=== PATIENT | female | born 1940 | race Caucasian/White ===

== ENCOUNTER → 2018-01-24 09:10 | Outpatient (CLI) | payer MEDICARE, OTHER, SELFPAY ==
[2018-01-24 11:45] LABS: Free T3, Triiodothyronine Free 2.39 pg/mL (2.77-5.27); Free T4, Direct Thyroxine 1.51 ng/dL (0.78-2.19)
[2018-01-24 11:58] LABS: Thyroid Stimulating Hormone 3.79 uIU/mL (0.47-4.68)
[2018-01-24 16:02] LABS: TSH w/ Reflex to FT4 3.86 uIU/mL (0.47-4.68)
== END ==
PROVIDERS: PCP Family Medicine; Visit Provider Family Medicine
DX: E03.9 Hypothyroidism, unspecified (principal)
CPT/HCPCS: 36415; 84439; 84443; 84481

== ENCOUNTER 2018-03-07 07:34 | Emergency (ER) | payer MEDICARE, OTHER, SELFPAY ==
--- NOTE | 2018-03-07 07:48 | DI.RAD.S_ITS ---
PROCEDURE: XR KNEE LT 3V INDICATIONS: knee pain, injury yesterday TECHNIQUE: 3 views of the knee were acquired. COMPARISON: None. FINDINGS: Bones: No fractures or dislocations. No suspicious bony lesions. Scattered degenerative spurring mild narrowing of the medial joint space. Spurring of the superior pole of the patella Soft tissues: No joint effusion. Chondrocalcinosis is seen. There are numerous surgical clips and soft tissue dystrophic calcifications. IMPRESSION: Mild left knee joint degeneration. No fracture identified. Chondrocalcinosis. Dictated by: Paresh Lynn M.D. on 03/07/2018 at 8:27 Approved by: Paresh Lynn M.D. on 03/07/2018 at 8:30
[2018-03-07 07:50] VITALS: BP 171/78; PULSE 70; RESP 18; TEMP 36; O2SAT 95; BMI 40.3
--- NOTE | 2018-03-07 07:51 | ED_ITS ---
HPI - Extremity Injury (Lower) General Chief Complaint: Extremity Problem,Nontraumatic Stated Complaint: Left Knee went out Time Seen by Provider: 03/07/18 07:39 Source: patient Mode of arrival: ambulatory Limitations: no limitations History of Present Illness HPI Narrative: 77-year-old female with history of hypertension, a nonsmoker presents alone with a chief complaint of left knee pain since an injury yesterday. She was merely walking with a shopping cart and felt a pop in her left, already arthritic knee. She has increasing pain with ambulation and improvement with rest. She felt a pop. She denies any obvious swelling. She denies other injury or specific, direct trauma MD complaint: knee injury Onset (ago): day(s) Type of Injury: unknown Place: street/outdoors Severity: moderate Relieving factors: rest Exacerbating factors: weight bearing and movement Context: walking Associated symptoms: snap/pop sensation Other symptoms: none Related Data Home Medications Medication Instructions Recorded Confirmed aspirin 81 mg PO QDAY #0 07/25/16 02/11/18 atorvastatin 40 mg PO HS #0 07/25/16 02/11/18 calcium carbonate-vitamin D3 1 sgl PO #0 07/25/16 02/11/18 [Calcium 600 with Vitamin D3] metoprolol succinate [Toprol XL] 50 mg PO QDAY #0 09/26/17 02/11/18 Previous Rx's Medication Instructions Recorded alendronate [Fosamax] 70 mg PO QWEEK #52 tab 09/04/17 cyclobenzaprine 10 mg tablet 10 mg PO ONCE PRN #90 tab 02/21/18 irbesartan 300 mg tablet 300 mg PO QDAY #90 tab 02/25/18 levothyroxine 125 mcg tablet 125 mcg PO QDAY #90 tab 02/25/18 Allergies Allergy/AdvReac Type Severity Reaction Status Date / Time codeine [CODEINE] Allergy Unknown Verified 03/07/18 08:13 peanut [PEANUT] Allergy Unknown Verified 03/07/18 08:13 Penicillins [PENICILLINS] Allergy Unknown Verified 03/07/18 08:13 Review of Systems Review of Systems All systems reviewed & are unremarkable except as noted in HPI and below Constitutional Denies chills, Denies fever(s), Denies lethargy and Denies weakness Eyes Denies change in vision, Denies eye discharge, Denies irritation and Denies loss of vision ENT Ears, Nose, Mouth, and Throat: Denies change in voice, Denies neck pain and Denies sore throat Cardiovascular Denies chest pain, Denies irregular heart rhythm, Denies lightheadedness, Denies palpitations, Denies dyspnea, Denies dyspnea on exertion and Denies orthopnea Respiratory Denies cough, Denies dyspnea, Denies dyspnea on exertion and Denies wheezing Gastrointestinal Gastrointestinal: Denies abdominal pain, Denies change in bowel habits, Denies diarrhea, Denies nausea and Denies vomiting Genitourinary Denies hematuria, Denies flank pain, Denies urinary incontinence and Denies urinary urgency Musculoskeletal Reports abnormal gait, Reports limited range of motion and Denies neck pain Integumentary/Breasts Denies pruritus, Denies erythema, Denies rash and Denies wounds Neurologic Reports abnormal gait, Denies confusion, Denies loss of vision and Denies weakness Psychiatric Denies anxiety, Denies confusion, Denies depression, Denies homicidal ideation and Denies suicidal ideation Endocrine Denies palpitations Hematologic/Lymphatic Denies easy bruising Allergic/Immunologic Denies wheezing [facility] Medical History Chronic back pain (Chronic) Coronary artery disease (Chronic 1998) Hypertension (Chronic) Hypothyroidism (Chronic Unknown) Irritable bowel disease (Chronic) Osteoporosis (Chronic) History of arm fracture (Resolved) Hx of hysterectomy (Resolved 1996) Mumps (Resolved) Surgical History History of knee replacement (Resolved 2013) Hx of breast biopsy (Resolved 2006) Hx of cataract surgery (Resolved 2013) Hx of cholecystectomy (Resolved 11/2016) Hx of coronary artery bypass graft (Resolved 1998) Hx of rotator cuff surgery (Resolved) Family History Child Heart disease Mother Diabetes mellitus Father Heart disease Social History Smoking Status: Never smoker alcohol intake: never Exam Narrative Exam Narrative: GEN: AOx3 and in mild distress EYES: Pupils are equal, round, and reactive to light and accommodation. Extraoccular muscles are intact bilaterally. There is no subconjunctival hemorrhage or exudate. CHEST: Lungs are clear to auscultation bilaterally and free of wheezes, rales, or rhonchi. Heart rate is regular rhythm, there are no murmurs, clicks, rubs, or gallops. There is no chest wall tenderness. ABD: Abdomen is soft and nontender. There is no guarding or rebound. Bowel sounds are normal in all 4 quadrants. There is no mass or organomegaly. EXT: Full but painful range of motion of left knee with tenderness along the medial aspect of the patella. No effusion, warmth or redness. No ligamentous instability SKIN: Warm, pink, and dry. No erythema or rash Initial Vital Signs Initial Vital Signs: Vital Signs Temperature 96.8 F L 03/07/18 07:50 Pulse Rate 70 03/07/18 07:50 Respiratory Rate 18 03/07/18 07:50 Blood Pressure 171/78 H 03/07/18 07:50 Pulse Oximetry 95 03/07/18 07:50 Course Orders Ordered: ED Orders 03/07/18 07:48 XR knee LT 3V Stat Discharge Plan Departure Patient Disposition: Home Clinical Impression: Left knee sprain Discharge Date/Time: 03/07/18 08:30 Interventions: ED Discharge Assessment Last Done: 03/07/18 08:30 Instructions: DI for Knee Sprain Activity Restrictions/Additional Instructions: *You have been diagnosed with [ acute left knee sprain ] *What to do: * please continue to take medications as directed and add Tylenol and/or Motrin for aches and pains *Follow up with your primary care provider in 2-3 days, call for an appointment. Let them know you were seen in the Emergency Department and that we ask that you be seen in follow up *Return to ER if you should have any new, worsening or concerning symptoms Prescriptions: No Action atorvastatin 40 MG tablet 40 mg PO HS Qty: 0 RF: 0 aspirin 81 MG tablet,delayed release (DR/EC) 81 mg PO QDAY Qty: 0 RF: 0 calcium carbonate-vitamin D3 [Calcium 600 with Vitamin D3] 600 MG/200 IU capsule 1 sgl PO Qty: 0 RF: 0 alendronate [Fosamax] 70 MG tablet 70 mg PO QWEEK Qty: 52 RF: 0 metoprolol succinate [Toprol XL] 50 MG tablet extended release 24 hr 50 mg PO QDAY Qty: 0 RF: 0 cyclobenzaprine 10 mg tablet 10 mg PO ONCE PRN (Reason: muscle spasm) Qty: 90 RF: 0 irbesartan 300 mg tablet 300 mg PO QDAY Qty: 90 RF: 1 levothyroxine [Synthroid] 125 mcg tablet 125 mcg PO QDAY Qty: 90 RF: 3 Referrals: Deyainra Soto DO [Primary Care Provider] -
== END 2018-03-07 08:30 | disposition home or self-care (01) ==
PROVIDERS: Emergency Provider Emergency Medicine; PCP Family Medicine
DX: S83.92XA Sprain of unspecified site of left knee, initial encounter (principal); Y93.01 Activity, walking, marching and hiking
CPT/HCPCS: 73562; 99282; 99283

== ENCOUNTER → 2018-04-03 08:19 | Outpatient (CLI) | payer MEDICARE, OTHER, SELFPAY ==
[2018-04-03 09:42] LABS: Add Manual Diff / Slide Review NO; Basophils Percent Auto 0.7 % (0-2); Eosinophils Percent Auto 6.3 % (2-4); Hemoglobin 14.3 g/dL (12.0-16.0); Lymphocytes Percent Auto 19.7 % (25-40); Mean Corpuscular HGB Conc 33.9 % (30-36); Mean Corpuscular Hemoglobin 28.9 PG (26-34); Mean Corpuscular Volume 85.1 fL (80-100); Monocytes Percent Auto 7.2 % (3-14); Neutrophils Absolute Auto 3300 /uL (3000-5900); Neutrophils Percent Auto 66.1 % (50-75); Platelet Count 176 X10^3/uL (150-400); Red Blood Cell Count 4.94 X10^6/uL (4.0-5.2); Red Cell Distribution Width 14.7 % (11.6-14.8)
[2018-04-03 09:59] LABS: Alanine Aminotransferase 27 IU/L (9-52); Albumin 4.3 g/dL (3.5-5.0); Albumin Globulin Ratio 1.3 (1.0-2.8); Alkaline Phosphatase 78 U/L (38-126); Aspartate Aminotransferase 26 IU/L (14-36); BUN Creatinine Ratio 17.8 (6-22); Bilirubin Total 0.9 mg/dL (0.2-1.3); Blood Urea Nitrogen 16 mg/dL (7-17); Calcium 9.5 mg/dL (8.4-10.2); Carbon Dioxide 29 mmol/L (22-32); Chloride 103 mmol/L (98-107); Cholesterol 157 mg/dL (140-199); Estimated Glomerular Filt Rate > 60.0 mL/min (>60); Globulin 3.2 g/dL (1.7-4.1); Glucose 106 mg/dL (80-110); HDL Cholesterol 70 mg/dL (40-60); HEMOLYSIS < 15 (0-50); LDL Cholesterol Calculated 65 mg/dL (<100); Potassium 4.6 mmol/L (3.4-5.1); Sodium 144 mmol/L (137-145); Total Protein 7.5 g/dL (6.3-8.2); Triglycerides 110 mg/dL (35-150)
[2018-04-03 10:16] LABS: Free T3, Triiodothyronine Free 2.75 pg/mL (2.77-5.27); Free T4, Direct Thyroxine 1.22 ng/dL (0.78-2.19)
[2018-04-03 10:30] LABS: Thyroid Stimulating Hormone 5.14 uIU/mL (0.47-4.68)
== END ==
PROVIDERS: PCP Family Medicine; Visit Provider Family Medicine
DX: E03.9 Hypothyroidism, unspecified (principal); E78.2 Mixed hyperlipidemia; I10 Essential (primary) hypertension
CPT/HCPCS: 36415; 80053; 80061; 84439; 84443; 84481; 85025

== ENCOUNTER 2018-06-10 12:33 | Emergency (ER) | payer MEDICARE, OTHER, SELFPAY ==
[2018-06-10 12:36] VITALS: BP 169/71; PULSE 65; RESP 15; TEMP 36.6; O2SAT 100; BMI 42.1
--- NOTE | 2018-06-10 14:14 | DI.RAD.S_ITS ---
PROCEDURE: XR RIBS RT MIN 3V W CXR 1V INDICATIONS: R. 12th rib pain, fall TECHNIQUE: 2 views of the right ribs were acquired, along with a single view chest. COMPARISON: [facility], , CHEST 2 VIEW, 12/31/2016, 12:42. FINDINGS: Surgical changes and devices: Postoperative changes related to prior mediastinal surgery appears to be present. Clips within the right upper quadrant are suggestive of a previous cholecystectomy. Bones and chest wall: No displaced right-sided rib fractures are evident. No suspicious osseous lesions are evident. There are age-appropriate degenerative changes of the spine and shoulders. No suspicious bony lesions. Overlying soft tissues appear unremarkable. Lungs and pleura: No pleural effusions or pneumothorax. Lungs appear clear. Mediastinum: Mediastinal contours appear normal. Heart size is borderline enlarged. There may be aortic atherosclerosis. IMPRESSION: No displaced right-sided rib fractures. Dictated by: Flaco Monsivais M.D. on 06/10/2018 at 14:09 Approved by: Flaco Monsivais M.D. on 06/10/2018 at 14:10
--- NOTE | 2018-06-10 14:19 | ED_ITS ---
HPI - Abdominal Pain <Carissa Hernandez PA-C - Last Filed: 06/10/18 22:02> General Chief Complaint: Abdominal Pain Stated Complaint: rt sided abd pain Time Seen by Provider: 06/10/18 14:04 Source: patient Mode of arrival: ambulatory Limitations: no limitations History of Present Illness HPI narrative: This 78-year-old female was sent from walk-in clinic to ED due to right upper quadrant/rib area and flank pain. She states that this has been going on for about a week, but seems somewhat worse today. She denies any new trauma, but states that she fell at home couple of weeks ago. She does not remember any specific injury at the time. She states that pain seems worse with certain movements, and she has noticed that she has a hard time getting comfortable in bed at night. 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 She denies any fever, chills, sweats. She denies any nausea or vomiting. She denies any dysuria, new frequency, urgency, or hematuria. She denies any bowel habit changes (has fecal urgency since her cholecystectomy last year). She has not had any rash. She states that the only exacerbating or alleviating features to the pain seems to be positional, i.e. certain movements and sometimes deep breath exacerbate pain. She has been taking meloxicam prescribed by her PCP daily for knee problems, notes that she did not take that today Related Data Home Medications Medication Instructions Recorded Confirmed aspirin 81 mg PO QDAY #0 07/25/16 04/30/18 atorvastatin 40 mg PO HS #0 07/25/16 04/30/18 metoprolol succinate [Toprol XL] 50 mg PO QDAY #0 09/26/17 06/10/18 irbesartan 300 mg PO DAILY 06/10/18 06/10/18 levothyroxine 06/10/18 Previous Rx's Medication Instructions Recorded alendronate [Fosamax] 70 mg PO QWEEK #52 tab 09/04/17 meloxicam 15 mg tablet 15 mg PO DAILY PRN #30 tab 03/11/18 adjuvant AS01B (PF), component 0.5 ml IM ONCE #0.5 ml 04/30/18 vial 1 of 2 intramuscular suspension levothyroxine 137 mcg tablet 137 mcg PO DAILY #90 tab 04/30/18 pneumococcal 23 polyvalent vaccine 0.5 ml IM ONCE #0.5 ml 04/30/18 25 mcg/0.5 mL injection solution lidocaine [Lidoderm] 3 patch TOP DAILY #30 each 06/10/18 meloxicam [Mobic] 15 mg PO DAILY #30 tab 06/10/18 Allergies Allergy/AdvReac Type Severity Reaction Status Date / Time codeine [CODEINE] Allergy Severe High fever Verified 06/10/18 12:36 Influenza Virus Vaccines Allergy Severe High Verified 06/10/18 12:36 fevers - patient can't remember the rest peanut [PEANUT] Allergy Severe Rash, Verified 06/10/18 12:36 difficulty breathing Penicillins [PENICILLINS] Allergy Intermediate Rash Verified 06/10/18 12:36 Exam <Carissa Hernandez PA-C - Last Filed: 06/10/18 22:02> Narrative Exam Narrative: GENERAL APPEARANCE: Patient sitting comfortably, in no distress. HEENT: PERRL, EOMI, no scleral icterus NECK: Supple LUNGS: Clear to auscultation bilaterally. HEART: Rate and rhythm regular, normal S1 and S2, no S3 or S4. ABDOMEN: Soft, nontender, nondistended, bowel sounds present x 4 quadrants, no masses palpable, no hepatosplenomegaly. MUSCULOSKELETAL: Point tender along the right 12th rib from the midclavicular line to the posterior lateral scapular line, most anterior laterally where there is a trigger point EXTREMITIES: No edema, no calf tenderness DERMATOLOGIC: No jaundice or exanthem NEUROLOGIC: Alert and oriented with normal speech and coordination Initial Vital Signs Initial Vital Signs: Vital Signs Temperature 97.9 F 06/10/18 12:36 Pulse Rate 65 06/10/18 12:36 Respiratory Rate 15 06/10/18 12:36 Blood Pressure 169/71 H 06/10/18 12:36 Pulse Oximetry 100 06/10/18 12:36 <Estella Millan DO - Last Filed: 06/14/18 08:07> Initial Vital Signs Initial Vital Signs: Vital Signs Temperature 97.9 F 06/10/18 12:36 Pulse Rate 65 06/10/18 12:36 Respiratory Rate 15 06/10/18 12:36 Blood Pressure 169/71 H 06/10/18 12:36 Pulse Oximetry 100 06/10/18 12:36 Course <Carissa Hernandez PA-C - Last Filed: 06/10/18 22:02> Additional Information: Patient has clearly reproducible rib pain that has worsened today when she did not take her usual NSAID. She does not have any reproducible lower quadrant or abdominal pain, and has not developed any other new symptoms such as fever or vomiting since onset. Advised to monitor for these and she is agreeable. She is feeling better after ibuprofen, and will return if any acutely worsening or new symptoms, otherwise will follow up with PCP Orders Ordered: Discontinued Medications Ibuprofen (Advil) 400 mg PO NOW ONE Stop: 06/10/18 14:51 Last Admin: 06/10/18 14:53 Dose: 400 mg Vital Signs - 8 hr 06/10/18 15:34 Pulse Rate 61 Respiratory Rate 14 Blood Pressure [Left Wrist] 154/80 H Pulse Oximetry 100 <Estella Millan DO - Last Filed: 06/14/18 08:07> Orders Ordered: Discontinued Medications Ibuprofen (Advil) 400 mg PO NOW ONE Stop: 06/10/18 14:51 Last Admin: 06/10/18 14:53 Dose: 400 mg Vital Signs - 8 hr 06/10/18 15:34 Pulse Rate 61 Respiratory Rate 14 Blood Pressure [Left Wrist] 154/80 H Pulse Oximetry 100 MDM - Abdominal Pain <Carissa Hernandez PA-C - Last Filed: 06/10/18 22:02> Lab Data Attestation: I reviewed the patient's lab results. Result diagrams: 06/10/18 14:32 06/10/18 14:32 Lab Results 06/10/18 06/10/18 Range/Units 14:32 14:32 WBC 6.5 (4.5-11.0) X10^3/uL RBC 5.02 (4.0-5.2) X10^6/uL Hgb 14.4 (12.0-16.0) g/dL Hct 43.1 (36-46) % MCV 85.8 (80-100) fL MCH 28.6 (26-34) PG MCHC 33.3 (30-36) % RDW 14.1 (11.6-14.8) % Plt Count 176 (150-400) X10^3/uL Neut % (Auto) 70.2 (50-75) % Lymph % (Auto) 18.0 L (25-40) % Casey % (Auto) 7.2 (3-14) % Eos % (Auto) 3.3 (2-4) % Baso % (Auto) 1.3 (0-2) % Neut # (Auto) 4500 (5627-0665) /uL Sodium 144 (137-145) mmol/L Potassium 4.5 (3.4-5.1) mmol/L Chloride 106 (98-107) mmol/L Carbon Dioxide 29 (22-32) mmol/L BUN 14 (7-17) mg/dL Creatinine 0.80 (0.52-1.04) mg/dL Estimated GFR > 60.0 (>60) mL/min BUN/Creatinine Ratio 17.5 (6-22) Glucose 100 (80-110) mg/dL Calcium 9.4 (8.4-10.2) mg/dL Total Bilirubin 0.9 (0.2-1.3) mg/dL AST 30 (14-36) IU/L ALT 29 (9-52) IU/L Alkaline Phosphatase 87 (38-126) U/L Total Protein 7.8 (6.3-8.2) g/dL Albumin 4.4 (3.5-5.0) g/dL Globulin 3.4 (1.7-4.1) g/dL Albumin/Globulin Ratio 1.3 (1.0-2.8) Lipase 37 (23-300) U/L Imaging Data Chest x-ray: Radiologist's impression: [place] [address] XRay Report Signed Patient: Ursula Rodarte MR#: [id number] : 1940 Acct:[id number] Age/Sex: 78 / F Date of Service: 06/10/18 Loc: ED Accession Number: [id number] Procedure: XR ribs RT min 3V w CXR1V Ordering Provider: Carissa Hernandez P.A-C PROCEDURE: XR RIBS RT MIN 3V W CXR 1V INDICATIONS: R. 12th rib pain, fall TECHNIQUE: 2 views of the right ribs were acquired, along with a single view chest. [facility] 12[facility]. FINDINGS: Surgical changes and devices: Postoperative changes related to prior mediastinal surgery appears to be present. Clips within the right upper quadrant are suggestive of a previous cholecystectomy. Bones and chest wall: No displaced right-sided rib fractures are evident. No suspicious osseous lesions are evident. There are age-appropriate degenerative changes of the spine and shoulders. No suspicious bony lesions. Overlying soft tissues appear unremarkable. Lungs and pleura: No pleural effusions or pneumothorax. Lungs appear clear. Mediastinum: Mediastinal contours appear normal. Heart size is borderline enlarged. There may be aortic atherosclerosis. IMPRESSION: No displaced right-sided rib fractures. Dictated by: Flaco Monsivais M.D. on 06/10/2018 at 14:09 Approved by: Flaco Monsivais M.D. on 06/10/2018 at 14:10 <Estella Millan DO - Last Filed: 06/14/18 08:07> Lab Data Lab Results 06/10/18 06/10/18 Range/Units 14:32 14:32 WBC 6.5 (4.5-11.0) X10^3/uL RBC 5.02 (4.0-5.2) X10^6/uL Hgb 14.4 (12.0-16.0) g/dL Hct 43.1 (36-46) % MCV 85.8 (80-100) fL MCH 28.6 (26-34) PG MCHC 33.3 (30-36) % RDW 14.1 (11.6-14.8) % Plt Count 176 (150-400) X10^3/uL Neut % (Auto) 70.2 (50-75) % Lymph % (Auto) 18.0 L (25-40) % Casey % (Auto) 7.2 (3-14) % Eos % (Auto) 3.3 (2-4) % Baso % (Auto) 1.3 (0-2) % Neut # (Auto) 4500 (1303-5616) /uL Sodium 144 (137-145) mmol/L Potassium 4.5 (3.4-5.1) mmol/L Chloride 106 (98-107) mmol/L Carbon Dioxide 29 (22-32) mmol/L BUN 14 (7-17) mg/dL Creatinine 0.80 (0.52-1.04) mg/dL Estimated GFR > 60.0 (>60) mL/min BUN/Creatinine Ratio 17.5 (6-22) Glucose 100 (80-110) mg/dL Calcium 9.4 (8.4-10.2) mg/dL Total Bilirubin 0.9 (0.2-1.3) mg/dL AST 30 (14-36) IU/L ALT 29 (9-52) IU/L Alkaline Phosphatase 87 (38-126) U/L Total Protein 7.8 (6.3-8.2) g/dL Albumin 4.4 (3.5-5.0) g/dL Globulin 3.4 (1.7-4.1) g/dL Albumin/Globulin Ratio 1.3 (1.0-2.8) Lipase 37 (23-300) U/L Discharge Plan Departure Patient Disposition: Home Clinical Impression: Contusion of rib on right side Discharge Date/Time: 06/10/18 15:46 Interventions: ED Discharge Assessment Last Done: 06/10/18 15:45 Instructions: DI for Rib Contusion Activity Restrictions/Additional Instructions: I think your flank and right side area pain is related to your rib. When I push on that area or you move certain directions, we are able to make the pain happen. There is also correlation with it getting worse and you not having taken your meloxicam today. 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 Please continue your meloxicam. You can also add Tylenol if needed. I have also prescribed a lidocaine patch that you can put around the rib area for up to 12 hr daily to help with pain. If your insurance does not cover this, you can get a similar, 4% lidocaine patch over-the- counter. Please follow-up with your PCP in the next week to determine whether further treatment, such as physical therapy, may be needed. You should return here as we talked about if you have any acutely worsening pain, or new symptoms such as vomiting or fever. Prescriptions: New meloxicam [Mobic] 15 mg tablet 15 mg PO DAILY Qty: 30 RF: 0 lidocaine [Lidoderm] 5 % adhesive patch,medicated 3 patch TOP DAILY Qty: 30 RF: 0 No Action levothyroxine [Synthroid] 137 mcg tablet 137 mcg PO DAILY Qty: 90 RF: 1 pneumococcal 23-dennis ps vaccine 25 mcg/0.5 mL solution 0.5 ml IM ONCE Qty: 0.5 RF: 0 adjuvant AS01B (PF)vial 1 of 2 [Shingrix Adjuvant Component-PF] suspension 0.5 ml IM ONCE Qty: 0.5 RF: 0 meloxicam [Mobic] 15 mg tablet 15 mg PO DAILY PRN (Reason: knee pain) Qty: 30 RF: 1 atorvastatin 40 MG tablet 40 mg PO HS Qty: 0 RF: 0 aspirin 81 MG tablet,delayed release (DR/EC) 81 mg PO QDAY Qty: 0 RF: 0 alendronate [Fosamax] 70 MG tablet 70 mg PO QWEEK Qty: 52 RF: 0 metoprolol succinate [Toprol XL] 50 MG tablet extended release 24 hr 50 mg PO QDAY Qty: 0 RF: 0 levothyroxine 137 mcg tablet RF: 0 irbesartan 300 mg tablet 300 mg PO DAILY RF: 0 Referrals: Deyanira Soto DO [Primary Care Provider] - <Estella Milaln DO - Last Filed: 06/14/18 08:07> Cosign ED Attending Cosmoeature Attestation: I was immediately available in the department for consultation. Documentation has been reviewed. I agree with assessment and plan.
[2018-06-10 14:40] LABS: Add Manual Diff / Slide Review NO; Basophils Percent Auto 1.3 % (0-2); Eosinophils Percent Auto 3.3 % (2-4); Hematocrit 43.1 % (36-46); Hemoglobin 14.4 g/dL (12.0-16.0); Mean Corpuscular HGB Conc 33.3 % (30-36); Mean Corpuscular Hemoglobin 28.6 PG (26-34); Mean Corpuscular Volume 85.8 fL (80-100); Monocytes Percent Auto 7.2 % (3-14); Neutrophils Absolute Auto 4500 /uL (1500-7000); Neutrophils Percent Auto 70.2 % (50-75); Platelet Count 176 X10^3/uL (150-400); Red Blood Cell Count 5.02 X10^6/uL (4.0-5.2); Red Cell Distribution Width 14.1 % (11.6-14.8); White Blood Cell Count 6.5 X10^3/uL (4.5-11.0)
[2018-06-10 14:52] LABS: Alanine Aminotransferase 29 IU/L (9-52); Albumin 4.4 g/dL (3.5-5.0); Albumin Globulin Ratio 1.3 (1.0-2.8); Alkaline Phosphatase 87 U/L (38-126); Aspartate Aminotransferase 30 IU/L (14-36); BUN Creatinine Ratio 17.5 (6-22); Bilirubin Total 0.9 mg/dL (0.2-1.3); Blood Urea Nitrogen 14 mg/dL (7-17); Calcium 9.4 mg/dL (8.4-10.2); Carbon Dioxide 29 mmol/L (22-32); Chloride 106 mmol/L (98-107); Estimated Glomerular Filt Rate > 60.0 mL/min (>60); Globulin 3.4 g/dL (1.7-4.1); Glucose 100 mg/dL (80-110); HEMOLYSIS < 15 (0-50); Lipase 37 U/L (23-300); Potassium 4.5 mmol/L (3.4-5.1); Sodium 144 mmol/L (137-145); Total Protein 7.8 g/dL (6.3-8.2)
[2018-06-10] MEDS: IBUPROFEN 400 MG TABLET PO (14:53)
[2018-06-10 15:34] VITALS: BP 154/80; PULSE 61; RESP 14; O2SAT 100
== END 2018-06-10 15:46 | disposition home or self-care (01) ==
PROVIDERS: Emergency Provider Internal Medicine; PCP Family Medicine
DX: S20.211A Contusion of right front wall of thorax, initial encounter (principal)
CPT/HCPCS: 36415; 71101; 80053; 83690; 85025; 99282; 99284

== ENCOUNTER → 2018-07-20 10:18 | Outpatient (CLI) | payer MEDICARE, OTHER, SELFPAY ==
[2018-07-20 11:27] LABS: BUN Creatinine Ratio 15.6 (6-22); Blood Urea Nitrogen 14 mg/dL (7-17); Calcium 9.4 mg/dL (8.4-10.2); Carbon Dioxide 29 mmol/L (22-32); Chloride 102 mmol/L (98-107); Estimated Glomerular Filt Rate > 60.0 mL/min (>60); Glucose 110 mg/dL (80-110); HEMOLYSIS < 15 (0-50); Potassium 4.3 mmol/L (3.4-5.1); Sodium 141 mmol/L (137-145)
[2018-07-20 11:45] LABS: Free T3, Triiodothyronine Free 3.69 pg/mL (2.77-5.27); Free T4, Direct Thyroxine 2.67 ng/dL (0.78-2.19)
[2018-07-20 11:58] LABS: Thyroid Stimulating Hormone 0.19 uIU/mL (0.47-4.68)
== END ==
PROVIDERS: PCP Family Medicine; Visit Provider Hospitalist
DX: I10 Essential (primary) hypertension (principal); E03.9 Hypothyroidism, unspecified
CPT/HCPCS: 36415; 80048; 84439; 84443; 84481

== ENCOUNTER → 2018-10-03 08:13 | Outpatient (CLI) | payer MEDICARE, OTHER, SELFPAY ==
--- NOTE | 2018-10-03 08:15 | DI.US.S_ITS ---
PROCEDURE: US THYROID INDICATIONS: ENLARGED THYROID TECHNIQUE: Real-time scanning was performed of the thyroid gland, with image documentation. COMPARISON: None. FINDINGS: Right: Thyroid lobe measures 2.2 x 1 x 0.8 cm, and is homogeneous in echotexture. Left: Not seen. Isthmus: Not seen. IMPRESSION: Only the right lobe of the thyroid can be seen. The right lobe of the thyroid is not enlarged. The thyroid isthmus and the left thyroid are not seen. Please correlate with patient history. Dictated by: Julien Obregon M.D. on 10/03/2018 at 10:00 Approved by: Julien Obregon M.D. on 10/03/2018 at 10:01
[2018-10-06 22:05] LABS: Fecal Immunochemical Test NOT DETECTED (NOT DETECTED)
== END ==
PROVIDERS: PCP Family Medicine; Visit Provider Family Medicine
DX: E03.9 Hypothyroidism, unspecified (principal); E04.9 Nontoxic goiter, unspecified; K52.9 Noninfective gastroenteritis and colitis, unspecified
CPT/HCPCS: 76536; 82274

== ENCOUNTER → 2018-11-29 09:42 | Outpatient (CLI) | payer MEDICARE, OTHER, SELFPAY | PROVIDERS: PCP Family Medicine; Visit Provider Family Medicine | DX: M85.851 Other specified disorders of bone density and structure, right thigh (principal); Z78.0 Asymptomatic menopausal state; E07.9 Disorder of thyroid, unspecified | CPT/HCPCS: 77080 ==

== ENCOUNTER → 2018-12-19 07:22 | Outpatient (CLI) | payer MEDICARE, OTHER, SELFPAY ==
[2018-12-19 08:09] LABS: Hematocrit 41.7 % (36-46); Hemoglobin 14.1 g/dL (12.0-16.0); Mean Corpuscular HGB Conc 33.8 % (30-36); Mean Corpuscular Hemoglobin 28.9 PG (26-34); Mean Corpuscular Volume 85.3 fL (80-100); Platelet Count 209 X10^3/uL (150-400); Red Blood Cell Count 4.89 X10^6/uL (4.0-5.2); Red Cell Distribution Width 14.6 % (11.6-14.8); White Blood Cell Count 6.1 X10^3/uL (4.5-11.0)
[2018-12-19 08:12] LABS: Add Manual Diff / Slide Review YES
[2018-12-19 08:17] LABS: Alanine Aminotransferase 20 IU/L (9-52); Albumin 4.3 g/dL (3.5-5.0); Albumin Globulin Ratio 1.3 (1.0-2.8); Alkaline Phosphatase 76 U/L (38-126); Aspartate Aminotransferase 28 IU/L (14-36); BUN Creatinine Ratio 23.3 (6-22); Bilirubin Total 1.1 mg/dL (0.2-1.3); Blood Urea Nitrogen 21 mg/dL (7-17); Calcium 9.4 mg/dL (8.4-10.2); Carbon Dioxide 30 mmol/L (22-32); Chloride 104 mmol/L (98-107); Cholesterol 159 mg/dL (140-199); Estimated Glomerular Filt Rate > 60.0 mL/min (>60); Globulin 3.3 g/dL (1.7-4.1); Glucose 117 mg/dL (80-110); HDL Cholesterol 65 mg/dL (40-60); HEMOLYSIS < 15 (0-50); LDL Cholesterol Calculated 73 mg/dL (<100); Potassium 4.5 mmol/L (3.4-5.1); Sodium 140 mmol/L (137-145); Total Protein 7.6 g/dL (6.3-8.2); Triglycerides 106 mg/dL (35-150)
[2018-12-19 08:31] LABS: Free T3, Triiodothyronine Free 3.41 pg/mL (2.77-5.27); Free T4, Direct Thyroxine 1.81 ng/dL (0.78-2.19)
[2018-12-19 08:45] LABS: Thyroid Stimulating Hormone 1.17 uIU/mL (0.47-4.68)
[2018-12-19 09:07] LABS: Neutrophils Absolute Manual 3843 /uL (3000-5900); RBC Morphology Normal Morphology; Total Cells Counted 100
== END ==
PROVIDERS: PCP Family Medicine; Visit Provider Family Medicine
DX: K52.9 Noninfective gastroenteritis and colitis, unspecified (principal); K81.0 Acute cholecystitis; I10 Essential (primary) hypertension; E03.9 Hypothyroidism, unspecified; E04.9 Nontoxic goiter, unspecified; Z79.899 Other long term (current) drug therapy
CPT/HCPCS: 36415; 80053; 80061; 84439; 84443; 84481; 85025

== ENCOUNTER → 2019-04-14 07:51 | Outpatient (CLI) | payer MEDICARE, OTHER, SELFPAY ==
[2019-04-14 08:14] LABS: Add Manual Diff / Slide Review NO; Basophils Absolute Auto 0 /uL (0-100); Basophils Percent Auto 0.7 % (0-2); Eosinophils Absolute Auto 300 /uL (0-450); Eosinophils Percent Auto 5.3 % (2-4); Hematocrit 40.3 % (36-46); Hemoglobin 13.8 g/dL (12.0-16.0); Lymphocytes Absolute Auto 1000 /uL (1100-4500); Lymphocytes Percent Auto 18.5 % (25-40); Mean Corpuscular HGB Conc 34.3 % (30-36); Mean Corpuscular Hemoglobin 28.9 PG (26-34); Mean Corpuscular Volume 84.5 fL (80-100); Monocytes Absolute Auto 500 /uL (0-900); Monocytes Percent Auto 8.5 % (3-14); Neutrophils Absolute Auto 3600 /uL (1500-7000); Platelet Count 185 X10^3/uL (150-400); Red Blood Cell Count 4.77 X10^6/uL (4.0-5.2); Red Cell Distribution Width 14.6 % (11.6-14.8); White Blood Cell Count 5.3 X10^3/uL (4.5-11.0)
[2019-04-14 08:30] LABS: Alanine Aminotransferase 21 IU/L (<35); Albumin 4.3 g/dL (3.5-5.0); Albumin Globulin Ratio 1.3 (1.0-2.8); Alkaline Phosphatase 77 U/L (38-126); Aspartate Aminotransferase 32 IU/L (14-36); BUN Creatinine Ratio 22.2 (6-22); Blood Urea Nitrogen 20 mg/dL (7-17); Calcium 9.5 mg/dL (8.4-10.2); Carbon Dioxide 30 mmol/L (22-32); Chloride 103 mmol/L (98-107); Cholesterol 157 mg/dL (140-199); Estimated Glomerular Filt Rate > 60.0 mL/min (>60); Globulin 3.2 g/dL (1.7-4.1); Glucose 119 mg/dL (80-110); HDL Cholesterol 64 mg/dL (40-60); HEMOLYSIS < 15 (0-50); LDL Cholesterol Calculated 74 mg/dL (<100); Potassium 4.7 mmol/L (3.4-5.1); Sodium 139 mmol/L (137-145); Total Protein 7.5 g/dL (6.3-8.2); Triglycerides 93 mg/dL (35-150)
[2019-04-14 09:17] LABS: Free T3, Triiodothyronine Free 2.85 pg/mL (2.77-5.27); Free T4, Direct Thyroxine 1.43 ng/dL (0.78-2.19)
[2019-04-14 09:31] LABS: Thyroid Stimulating Hormone 2.57 uIU/mL (0.47-4.68)
== END ==
PROVIDERS: PCP Family Medicine; Visit Provider Family Medicine
DX: E03.9 Hypothyroidism, unspecified (principal); E78.2 Mixed hyperlipidemia; I10 Essential (primary) hypertension; I25.810 Atherosclerosis of coronary artery bypass graft(s) without angina pectoris; K80.20 Calculus of gallbladder without cholecystitis without obstruction; M15.0 Primary generalized (osteo)arthritis; M94.0 Chondrocostal junction syndrome [Tietze]
CPT/HCPCS: 36415; 80053; 80061; 84439; 84443; 84481; 85025

== ENCOUNTER → 2019-04-17 09:36 | Outpatient (CLI) | payer MEDICARE, OTHER, SELFPAY ==
[2019-04-17 11:29] LABS: Hemoglobin A1C% w Est Avg Glu 5.7 % (4.0-6.0)
[2019-04-17 12:08] LABS: Glucose 109 mg/dL (80-110)
== END ==
PROVIDERS: PCP Family Medicine; Visit Provider Nurse Practitioner
DX: R73.01 Impaired fasting glucose (principal)
CPT/HCPCS: 36415; 82947; 83036

== ENCOUNTER → 2019-10-20 06:57 | Outpatient (CLI) | payer MEDICARE, OTHER, SELFPAY ==
[2019-10-20 08:49] LABS: Alanine Aminotransferase 20 IU/L (<35); Aspartate Aminotransferase 30 IU/L (14-36); BUN Creatinine Ratio 23.1 (6-22); Blood Urea Nitrogen 21 mg/dL (7-17); Calcium 9.9 mg/dL (8.4-10.2); Carbon Dioxide 29 mmol/L (22-32); Chloride 104 mmol/L (98-107); Cholesterol 150 mg/dL (140-199); Estimated Glomerular Filt Rate 59.6 mL/min (>60); Glucose 117 mg/dL (80-110); HDL Cholesterol 67 mg/dL (40-60); HEMOLYSIS < 15 (0-50); LDL Cholesterol Calculated 62 mg/dL (<100); Potassium 4.5 mmol/L (3.4-5.1); Sodium 140 mmol/L (137-145); Triglycerides 104 mg/dL (35-150)
[2019-10-20 09:18] LABS: TSH w/ Reflex to FT4 3.67 uIU/mL (0.47-4.68)
== END ==
PROVIDERS: PCP Family Medicine; Referring Provider Internal Medicine; Visit Provider Internal Medicine
DX: E03.9 Hypothyroidism, unspecified (principal); I10 Essential (primary) hypertension; E78.5 Hyperlipidemia, unspecified
CPT/HCPCS: 36415; 80048; 80061; 84443; 84450; 84460

== ENCOUNTER → 2019-11-07 08:36 | Outpatient (CLI) | payer MEDICARE, OTHER, SELFPAY ==
[2019-11-07 09:55] LABS: Vitamin D 25 Hydroxy (D3) 43.5 ng/mL (30.0-100.0)
== END ==
PROVIDERS: PCP Internal Medicine; Referring Provider Internal Medicine; Visit Provider Internal Medicine
DX: M81.0 Age-related osteoporosis without current pathological fracture (principal)
CPT/HCPCS: 36415; 82306

== ENCOUNTER → 2020-03-07 09:44 | Outpatient (CLI) | payer MEDICARE, OTHER, SELFPAY ==
[2020-03-08 13:47] LABS: COVID19 Sendout Not Detected (Not Detect)
== END ==
PROVIDERS: PCP Internal Medicine; Visit Provider Family Medicine
DX: R06.02 Shortness of breath (principal); R11.0 Nausea; R51.9 Headache, unspecified; R53.83 Other fatigue
CPT/HCPCS: 87635

== ENCOUNTER → 2020-03-31 08:47 | Outpatient (CLI) | payer MEDICARE, OTHER, SELFPAY ==
[2020-03-31 09:19] LABS: Hemoglobin A1C% w Est Avg Glu 6.1 % (4.0-6.0)
[2020-03-31 09:31] LABS: Alanine Aminotransferase 18 IU/L (<35); Aspartate Aminotransferase 25 IU/L (14-36); BUN Creatinine Ratio 23.3 (6-22); Blood Urea Nitrogen 24 mg/dL (7-17); Calcium 9.4 mg/dL (8.4-10.2); Carbon Dioxide 30 mmol/L (22-32); Chloride 105 mmol/L (98-107); Cholesterol 142 mg/dL (140-199); Estimated Glomerular Filt Rate 51.7 mL/min (>60); Glucose 121 mg/dL (80-110); HDL Cholesterol 70 mg/dL (40-60); HEMOLYSIS < 15 (0-50); LDL Cholesterol Calculated 50 mg/dL (<100); Potassium 4.6 mmol/L (3.4-5.1); Sodium 139 mmol/L (137-145); Triglycerides 112 mg/dL (35-150); VLDL Cholesterol Calculated 22 mg/dL (2-30)
== END ==
PROVIDERS: PCP Internal Medicine; Referring Provider Internal Medicine; Visit Provider Nurse Practitioner
DX: E78.5 Hyperlipidemia, unspecified (principal); R73.01 Impaired fasting glucose; I10 Essential (primary) hypertension
CPT/HCPCS: 36415; 80048; 80061; 83036; 84450; 84460

== ENCOUNTER → 2020-06-12 10:34 | Outpatient (CLI) | payer MEDICARE, OTHER, SELFPAY ==
--- NOTE | 2020-06-12 | DI.MG.S_ITS ---
BILATERAL DIGITAL SCREENING MAMMOGRAM 3D/2D WITH CAD: 06/12/2020 CLINICAL: Routine screening. Comparison is made to exams dated: 03/04/2014 mammogram, 03/25/2015 mammogram, and 03/29/2016 mammogram - outside location. There are scattered fibroglandular elements in both breasts. Current study was also evaluated with a Computer Aided Detection (CAD) system. No significant masses, calcifications, or other findings are seen in either breast. There has been no significant interval change. IMPRESSION: NEGATIVE There is no mammographic evidence of malignancy. A 1 year screening mammogram is recommended. This exam was interpreted at Station ID: [id number]. NOTE: For mammograms, a report in lay terms will be sent to the patient. Approximately 15% of breast malignancies will not be visualized mammographically. In the management of a palpable breast mass, a negative mammogram must not discourage biopsy of a clinically suspicious lesion. Electronically Signed By: Dg corral/akbar:06/14/2020 09:49:58 letter sent: Normal Exam ACR BI-RADS Category 1: Negative [id number]
== END ==
PROVIDERS: PCP Internal Medicine; Referring Provider Internal Medicine; Visit Provider Internal Medicine
DX: Z12.31 Encounter for screening mammogram for malignant neoplasm of breast (principal)
CPT/HCPCS: 77063; 77067

== ENCOUNTER → 2020-08-13 10:17 | Outpatient (CLI) | payer MEDICARE, OTHER, SELFPAY ==
[2020-08-13] MEDS: COVID-19 VACC, Ad26(JANSSEN)/PF 0.5 ML IM (10:23)
== END ==
PROVIDERS: PCP Internal Medicine; Visit Provider Internal Medicine
DX: Z23 Encounter for immunization (principal)
CPT/HCPCS: 0031A; 91303

== ENCOUNTER → 2020-08-23 10:00 | Outpatient (CLI) | payer MEDICARE, OTHER, SELFPAY | PROVIDERS: PCP Internal Medicine; Referring Provider Internal Medicine; Visit Provider Internal Medicine | DX: M85.852 Other specified disorders of bone density and structure, left thigh (principal); Z78.0 Asymptomatic menopausal state; E07.9 Disorder of thyroid, unspecified | CPT/HCPCS: 77080 ==

== ENCOUNTER → 2020-09-29 07:59 | Outpatient (CLI) | payer MEDICARE, OTHER, SELFPAY ==
[2020-09-29 08:32] LABS: Bacteria Urine None Seen; RBC Urine None Seen (0-5/HPF)
[2020-09-29 08:58] LABS: Add Manual Diff / Slide Review NO; Basophils Absolute Auto 0 /uL (0-100); Basophils Percent Auto 0.8 % (0-2); Eosinophils Absolute Auto 300 /uL (0-450); Eosinophils Percent Auto 6.6 % (2-4); Hematocrit 37.3 % (36-46); Hemoglobin 12.2 g/dL (12.0-16.0); Lymphocytes Absolute Auto 900 /uL (1100-4500); Lymphocytes Percent Auto 17.4 % (25-40); Mean Corpuscular HGB Conc 32.8 % (30-36); Mean Corpuscular Hemoglobin 28.2 PG (26-34); Mean Corpuscular Volume 86.2 fL (80-100); Monocytes Absolute Auto 500 /uL (0-900); Monocytes Percent Auto 8.5 % (3-14); Neutrophils Absolute Auto 3500 /uL (1500-7000); Neutrophils Percent Auto 66.7 % (50-75); Platelet Count 182 X10^3/uL (150-400); Red Blood Cell Count 4.32 X10^6/uL (4.0-5.2); White Blood Cell Count 5.3 X10^3/uL (4.5-11.0)
[2020-09-29 09:06] LABS: Hemoglobin A1C% w Est Avg Glu 5.7 % (4.0-6.0)
[2020-09-29 09:32] LABS: BUN Creatinine Ratio 16.5 (6-22); Blood Urea Nitrogen 18 mg/dL (7-17); Calcium 9.8 mg/dL (8.4-10.2); Carbon Dioxide 28 mmol/L (22-32); Chloride 106 mmol/L (98-107); Estimated Glomerular Filt Rate 48.3 mL/min (>60); Glucose 115 mg/dL (80-110); HEMOLYSIS < 15 (0-50); Sodium 140 mmol/L (137-145)
[2020-09-29 09:47] LABS: Appearance Urine UA CLEAR; Bilirubin Urine UA NEGATIVE (NEGATIVE); Color Urine UA YELLOW; Glucose Urine UA NEGATIVE (Negative); Ketones Urine UA NEGATIVE (NEGATIVE); Leukocyte Esterase Urine UA TRACE (NEGATIVE); Nitrite Urine UA NEGATIVE (Negative); Occult Blood Urine UA NEGATIVE (Negative); Protein Urine UA NEGATIVE (Negative); Urobilinogen Urine UA 0.2 E.U./dL (0.2)
[2020-09-29 09:50] LABS: pH Urine UA 6.5 (4.5-8.0)
[2020-09-29 09:57] LABS: Amorphous Sediment Urine 1+; Culture Indicated Urine Cult Not Indicated; Squamous Epithelial Cell Urine 1-5 /HPF (0-5/HPF); WBC Urine 0-1/HPF (0-5/HPF)
== END ==
PROVIDERS: PCP Internal Medicine; Referring Provider Internal Medicine; Visit Provider Internal Medicine
DX: R73.9 Hyperglycemia, unspecified (principal); Z01.812 Encounter for preprocedural laboratory examination; N39.0 Urinary tract infection, site not specified
CPT/HCPCS: 36415; 80048; 81001; 83036; 85025

== ENCOUNTER 2020-10-11 13:45 | Emergency (ER) | payer MEDICARE, OTHER, SELFPAY ==
[2020-10-11] VITALS (7 sets, daily range): BP systolic 170–198; BP diastolic 74–76; PULSE 58–64; RESP 12–25; O2SAT 97–100; BMI 43.4
--- NOTE | 2020-10-11 13:58 | DI.RAD.S_ITS ---
PROCEDURE: XR CHEST 1V INDICATIONS: chest pain TECHNIQUE: One view of the chest was acquired. COMPARISON: [facility], , CHEST 2 VIEW, 12/31/2016, 12:42. FINDINGS: Surgical changes and devices: Numerous surgical clips. Lungs and pleura: Scattered subsegmental scarring and/or atelectasis. No acute consolidation. No pleural effusions or pneumothorax. Mediastinum: Heart appears mildly enlarged accounting for technique Bones and chest wall: Bilateral shoulder joint degeneration. IMPRESSION: No acute disease. Dictated by: Paresh Lynn M.D. on 10/11/2020 at 14:54 Approved by: Paresh Lynn M.D. on 10/11/2020 at 14:55
[2020-10-11 15:09] LABS: Add Manual Diff / Slide Review NO; Basophils Absolute Auto 100 /uL (0-100); Basophils Percent Auto 0.9 % (0-2); Eosinophils Absolute Auto 300 /uL (0-450); Eosinophils Percent Auto 4.8 % (2-4); Hematocrit 37.9 % (36-46); Hemoglobin 12.7 g/dL (12.0-16.0); Lymphocytes Absolute Auto 800 /uL (1100-4500); Lymphocytes Percent Auto 13.3 % (25-40); Mean Corpuscular HGB Conc 33.6 % (30-36); Mean Corpuscular Hemoglobin 28.8 PG (26-34); Mean Corpuscular Volume 85.9 fL (80-100); Monocytes Absolute Auto 600 /uL (0-900); Monocytes Percent Auto 10.4 % (3-14); Neutrophils Absolute Auto 4300 /uL (1500-7000); Neutrophils Percent Auto 70.6 % (50-75); Platelet Count 173 X10^3/uL (150-400); Red Blood Cell Count 4.41 X10^6/uL (4.0-5.2); Red Cell Distribution Width 14.8 % (11.6-14.8); White Blood Cell Count 6.1 X10^3/uL (4.5-11.0)
--- NOTE | 2020-10-11 15:10 | ED_ITS ---
HPI - Chest Pain General Chief Complaint: Chest Pain Stated Complaint: SOB, Right Sided Chest Pain Time Seen by Provider: 10/11/20 14:00 Source: patient Mode of arrival: Ambulatory Limitations: no limitations History of Present Illness HPI narrative: 80F nonsmoker with history of hyperlipidemia, HTN, and gallbladder disease presents with the chief complaint of increasingly severe RUQ pain which radiates around to her back. She states the pain is worse when she moves and when she lays on her right side. She states it improves when sitting up. She denies any association with deep breaths. She denies any recent injury, cough or shortness of breath. She has had no fever or chills. She denies any nausea, vomiting or diarrhea. She has a surgically absent gallbladder but states she thinks this feels different. She denies any recent medication or dietary change. She denies any rash or skin issues. Provider and was sent to the emergency department for evaluation given her history of a quadruple bypass. She denies any exertional component. She is not dizzy nor weak or lightheaded. She denies any unexplained fatigue or diaphoresis. She has had a recent travel and denies any history of blood clots or cancer. MD complaint: chest pain Onset (ago): day(s) Duration: constant Pain location: right chest Severity: moderate Quality: tightness, aching and sharp Pain radiation: back Relieving factors: remaining still Exacerbating factors: palpation and movement Treatments prior to arrival chest pain: none Related Data On Oral Contraceptives: No Home Medications Medication Instructions Recorded Confirmed aspirin 81 mg PO QDAY #0 07/25/16 04/17/19 atorvastatin 40 mg PO HS #0 07/25/16 04/17/19 metoprolol succinate [Toprol XL] 50 mg PO QDAY #0 09/26/17 04/17/19 Previous Rx's Medication Instructions Recorded Disabled [place] Permit #1 ea 07/05/18 irbesartan 300 mg tablet 300 mg PO DAILY #90 tab 11/27/18 meloxicam 15 mg tablet 15 mg PO DAILY #30 tab 01/08/19 alendronate 70 mg tablet 70 mg PO QWEEK #12 tab 03/20/19 hydrochlorothiazide 12.5 mg tablet 12.5 mg PO DAILY #90 tab 04/17/19 levothyroxine 125 mcg capsule 125 mcg PO DAILY #90 cap 04/17/19 tramadol [Ultram] 25 mg PO Q8H PRN #20 tab 10/11/20 Allergies Allergy/AdvReac Type Severity Reaction Status Date / Time codeine [CODEINE] Allergy Severe High fever Verified 03/07/20 09:42 Influenza Virus Vaccines Allergy Severe High Verified 03/07/20 09:42 fevers - patient can't remember the rest peanut [PEANUT] Allergy Severe Rash, Verified 03/07/20 09:42 difficulty breathing Penicillins [PENICILLINS] Allergy Intermediate Rash Verified 03/07/20 09:42 Review of Systems Constitutional Constitutional: Denies chills, Denies fatigue, Denies fever(s), Denies frequent falls, Denies lethargy and Denies weakness Eyes Eyes: Denies change in vision, Denies eye discharge, Denies irritation and Denies loss of vision ENT Ears, Nose, Mouth, and Throat: Denies change in voice, Denies dizziness, Denies neck pain, Denies sore throat and Denies throat swelling Cardiovascular Cardiovascular: Reports chest pain, Denies irregular heart rhythm, Denies lightheadedness, Denies palpitations, Denies dyspnea, Denies dyspnea on exertion and Denies orthopnea Respiratory Respiratory: Denies cough, Denies dyspnea, Denies dyspnea on exertion and Denies wheezing Gastrointestinal Gastrointestinal: Reports abdominal pain, Denies change in bowel habits, Denies diarrhea, Denies nausea and Denies vomiting Musculoskeletal Musculoskeletal: Denies neck pain and Denies numbness Integumentary/Breasts Skin/Breast: Denies pruritus, Denies erythema, Denies rash and Denies wounds Neurologic Neurologic: Denies behavioral changes, Denies confusion, Denies dizziness, Denies frequent falls, Denies loss of vision, Denies numbness and Denies weakness Psychiatric Psychiatric: Denies anxiety, Denies behavioral changes, Denies confusion, Denies depression, Denies homicidal ideation and Denies suicidal ideation Endocrine Endocrine: Denies fatigue, Denies flushing and Denies palpitations Hematologic/Lymphatic Hematologic/Lymphatic: Denies easy bruising Allergic/Immunologic Allergic/Immunologic: Denies urticaria, Denies throat swelling and Denies wheezing Patient History Medical History (Updated 10/11/20 @ 18:36 by Philippe Mendieta DO) Chronic back pain Coronary artery disease (1998) History of arm fracture Hypertension Hypothyroidism (Unknown) Irritable bowel disease Mumps Osteoporosis Surgical History History of knee replacement (2013) Hx of breast biopsy (2006) Hx of cataract surgery (2013) Hx of cholecystectomy (11/2016) Hx of coronary artery bypass graft (1998) Hx of hysterectomy (1996) Hx of rotator cuff surgery Family History Child Heart disease Mother Diabetes mellitus Father Heart disease Social History Smoking Status: Never smoker second hand exposure: No alcohol intake: never substance use type: does not use Smoking Status: Never smoker alcohol intake frequency: 0-2 drinks per day Substance Use Type: does not use Exam Narrative Exam Narrative: GENERAL: [80] year old patient appears stated age. Well-maureen shed, well-developed patient, in mild distress. HEAD: Atraumatic. Normocephalic. EYES: Pupils equal round and reactive. Extraocular motions intact. No scleral icterus. No injection or drainage. ENT: Nose without bleeding, purulent drainage. Throat without erythema, tonsillar hypertrophy or exudate. Airway patent. NECK: Trachea midline. Non tender CARDIOVASCULAR: Regular rate and rhythm without murmurs, gallops, or rubs. RESPIRATORY: Clear to auscultation. Breath sounds equal bilaterally. No wheezes, rales, or rhonchi. GASTROINTESTINAL: Abdomen soft, tender in right flank, long right ribs and right CVA tenderness, nondistended. EXTREMITIES: No edema or joint tenderness. BACK: Nontender without deformity or crepitance. No flank tenderness. NEURO: AOx3. SKIN: No rash or erythema of visible areas Initial Vital Signs Initial Vital Signs: Vital Signs Pulse Rate 64 10/11/20 13:49 Respiratory Rate 12 10/11/20 13:49 Pulse Oximetry 97 10/11/20 13:49 Course Orders Ordered: Discontinued Medications Acetaminophen (Acetaminophen 325 Mg Tablet) 650 mg PO NOW ONE Stop: 10/11/20 15:36 Last Admin: 10/11/20 15:42 Dose: 650 mg Documented by: [email or web address] Ketorolac Tromethamine (Ketorolac 30 Mg/Ml Vial) 15 mg IV NOW ONE Stop: 10/11/20 16:39 Last Admin: 10/11/20 17:21 Dose: 15 mg Documented by: [email or web address] Vital Signs Vital signs: Vital Signs - 8 hr 10/11/20 13:49 10/11/20 15:17 10/11/20 15:30 Pulse Rate 64 58 L 60 Respiratory Rate 12 17 25 H Blood Pressure Pulse Oximetry 97 100 99 10/11/20 15:31 Pulse Rate 60 Respiratory Rate 18 Blood Pressure 170/74 H Pulse Oximetry 99 MDM - Chest Pain Lab Data Result diagrams: 10/11/20 14:50 10/11/20 14:50 Labs: Lab Results 10/11/20 10/11/20 10/11/20 Range/Units 14:50 14:50 15:00 WBC 6.1 (4.5-11.0) X10^3/uL RBC 4.41 (4.0-5.2) X10^6/uL Hgb 12.7 (12.0-16.0) g/dL Hct 37.9 (36-46) % MCV 85.9 (80-100) fL MCH 28.8 (26-34) PG MCHC 33.6 (30-36) % RDW 14.8 (11.6-14.8) % Plt Count 173 (150-400) X10^3/uL Neut % (Auto) 70.6 (50-75) % Lymph % (Auto) 13.3 L (25-40) % [place] % (Auto) 10.4 (3-14) % Eos % (Auto) 4.8 H (2-4) % Baso % (Auto) 0.9 (0-2) % Neut # (Auto) 4300 (7117-7077) /uL Lymph # (Auto) 800 L (1907-0424) /uL [place] # (Auto) 600 (0-900) /uL Eos # (Auto) 300 (0-450) /uL Baso # (Auto) 100 (0-100) /uL PT 11.4 (10.1-12.7) SECONDS INR 1.0 (0.9-1.3) APTT 32 (26.4-36.2) SECONDS D-Dimer (<230) ng/mL Sodium 140 (137-145) mmol/L Potassium 3.9 (3.4-5.1) mmol/L Chloride 103 (98-107) mmol/L Carbon Dioxide 31 (22-32) mmol/L BUN 22 H (7-17) mg/dL Creatinine 1.16 H (0.52-1.04) mg/dL Estimated GFR 45.0 L (>60) mL/min BUN/Creatinine Ratio 19.0 (6-22) Glucose 108 (80-110) mg/dL Calcium 9.8 (8.4-10.2) mg/dL Total Bilirubin 0.8 (0.2-1.3) mg/dL AST 27 (14-36) IU/L ALT 19 (<35) IU/L Alkaline Phosphatase 68 (38-126) U/L Total Creatine Kinase 50 (30-135) U/L CK-MB (CK-2) TNP CK-MB (CK-2) Rel Index TNP Troponin I < 0.012 (0.01-0.034) ng/mL Total Protein 7.3 (6.3-8.2) g/dL Albumin 4.0 (3.5-5.0) g/dL Globulin 3.3 (1.7-4.1) g/dL Albumin/Globulin Ratio 1.2 (1.0-2.8) Lipase 64 (23-300) U/L 10/11/20 Range/Units 15:00 WBC (4.5-11.0) X10^3/uL RBC (4.0-5.2) X10^6/uL Hgb (12.0-16.0) g/dL Hct (36-46) % MCV (80-100) fL MCH (26-34) PG MCHC (30-36) % RDW (11.6-14.8) % Plt Count (150-400) X10^3/uL Neut % (Auto) (50-75) % Lymph % (Auto) (25-40) % [place] % (Auto) (3-14) % Eos % (Auto) (2-4) % Baso % (Auto) (0-2) % Neut # (Auto) (7134-5002) /uL Lymph # (Auto) (5786-9448) /uL [place] # (Auto) (0-900) /uL Eos # (Auto) (0-450) /uL Baso # (Auto) (0-100) /uL PT (10.1-12.7) SECONDS INR (0.9-1.3) APTT (26.4-36.2) SECONDS D-Dimer 202 (<230) ng/mL Sodium (137-145) mmol/L Potassium (3.4-5.1) mmol/L Chloride (98-107) mmol/L Carbon Dioxide (22-32) mmol/L BUN (7-17) mg/dL Creatinine (0.52-1.04) mg/dL Estimated GFR (>60) mL/min BUN/Creatinine Ratio (6-22) Glucose (80-110) mg/dL Calcium (8.4-10.2) mg/dL Total Bilirubin (0.2-1.3) mg/dL AST (14-36) IU/L ALT (<35) IU/L Alkaline Phosphatase (38-126) U/L Total Creatine Kinase (30-135) U/L CK-MB (CK-2) CK-MB (CK-2) Rel Index Troponin I (0.01-0.034) ng/mL Total Protein (6.3-8.2) g/dL Albumin (3.5-5.0) g/dL Globulin (1.7-4.1) g/dL Albumin/Globulin Ratio (1.0-2.8) Lipase (23-300) U/L Urine Dip Bedside Urine Glucose Negative Bedside Urine Bilirubin - Negative Bedside Urine Ketone - Negative Urine Specific [place] 1.015 Bedside Urine Occult Blood - Negative Bedside Urine pH 6.5 Bedside Urine Protein - Negative Bedside Urine Urobilinogen - Negative Bedside Urine Nitrite - Negative Imaging Data Renal US: Radiologist's Impression: [address] [id number] ReportSigned Patient: Ursula Rodarte [facility]#: [id number]: 1940Acct:[id number]/Sex: 80 / FDate of Service: 10/11/20Loc: EDAccession Number: [id number] Procedure: US renal complete Ordering Provider: Philippe Mendieta D.O. PROCEDURE: US RENAL COMPLETE INDICATIONS: severe R flank pain, increased creatinine TECHNIQUE: Real-time scanning was performed of the kidneys and bladder, with image documentation. COMPARISON: None. FINDINGS: Kidneys: Kidneys are normal in size. Right kidney measures 11.4 cm long; left kidney measures 11.4 cm long. Right renal cortical thickness is 1.5 cm; left renal cortical thickness is 1.4 cm. Renal cortical echotexture is normal. No hydronephrosis or nephrolithiasis. No suspicious solid mass lesions. Bladder: Pre-void bladder volume is 119 mL. Pre-void images demonstrate no intraluminal masses or stones. Miscellaneous: No free pelvic fluid. IMPRESSION: No hydronephrosis or nephrolithiasis. No acute abnormality is seen. Dictated by: Dg Quintero M.D. on 10/11/2020 at 18:25 Approved by: Dg Quintero M.D. on 10/11/2020 at 18:[address] [id number] ReportSigned Patient: Ursula Rodarte RMR#: [id number]: 1940Acct:[id number]/Sex: 80 / FDate of Service: 10/11/20Loc: EDAccession Number: [id number] Procedure: US renal complete Ordering Provider: Philippe Mendieta D.O. PROCEDURE: US RENAL COMPLETE INDICATIONS: severe R flank pain, increased creatinine TECHNIQUE: Real-time scanning was performed of the kidneys and bladder, with image documentation. COMPARISON: None. FINDINGS: Kidneys: Kidneys are normal in size. Right kidney measures 11.4 cm long; left kidney measures 11.4 cm long. Right renal cortical thickness is 1.5 cm; left renal cortical thickness is 1.4 cm. Renal cortical echotexture is normal. No hydronephrosis or nephrolithiasis. No suspicious solid mass lesions. Bladder: Pre-void bladder volume is 119 mL. Pre-void images demonstrate no intraluminal masses or stones. Miscellaneous: No free pelvic fluid. IMPRESSION: No hydronephrosis or nephrolithiasis. No acute abnormality is seen. Dictated by: Dg Quintero M.D. on 10/11/2020 at 18:25 Approved by: Dg Quintero M.D. on 10/11/2020 at 18:26 CT scan - chest: Radiologist's Impression: Willie Rodartethalia Arnold 80 F [address] [id number] Scan ReportSigned Patient: Ursula Rodarte RMR#: [id number]: 1940Acct:[id number]/Sex: 80 / FDate of Service: 10/11/20Loc: EDAccession Number: [id number] Procedure: CT angio chest PE protocol Ordering Provider: Philippe Mendieta D.O. PROCEDURE: CT ANGIO CHEST PE PROTOCOL INDICATIONS: severe R sided chest pain TECHNIQUE: After the administration of intravenous contrast, 2 mm thick sections acquired from the pulmonary apices to the posterior costophrenic angles. 3-dimensional maximum intensity projection (MIP) coronal and sagittal reformats were then acquired through the thorax. For radiation dose reduction, the following was used: automated exposure control, adjustment of mA and/or kV according to patient size. COMPARISON: [facility], CT, KIDNEY/ URETER/BLADDER, 11/13/2016, 11:24. [facility], CR, XR CHEST 1V, 10/11/2020, 14:12. FINDINGS: Image quality: Excellent. Pulmonary arteries: Pulmonary arteries are normal in size, and demonstrate no intraluminal filling defects to suggest central pulmonary embolism. Lungs and pleura: Lungs are clear. No pleural effusions or pneumothorax. Central and peripheral airways are patent. Mediastinum: Heart size is prominent, without pericardial effusion. No mediastinal or hilar adenopathy. Thoracic aorta is normal in caliber and enhancement. Esophagus is normal in caliber, without hiatal hernia. Bones and chest wall: No suspicious bony lesions. Ribs and thoracic spine appear intact throughout. Thyroid gland is unremarkable. No axillary or supraclavicular adenopathy. Abdomen: There is nodularity of the left adrenal gland, unchanged. Otherwise, visualized upper abdominal solid organs appear normal in the early arterial phase of enhancement. IMPRESSION: 1. No visualized pulmonary embolism. Lungs are clear. Dictated by: Rachana Wiggins M.D. on 10/11/2020 at 16:20 Approved by: Rachana Wiggins M.D. on 10/11/2020 at 16:23 MDM Narrative Medical decision making narrative: Multiple etiologies for patient's symptoms considered including: [Cardiac ischemia but thought unlikely given lack of ischemic type complaints, duration of symptoms and lack of EKG findings or troponin. Pulmonary embolism considered but thought unlikely given lack of findings on imaging. Pneumonia considered but thought unlikely given lack of fi ndings on imaging. Kidney stone and hydronephrosis considered but thought unlikely given lack of findings on ultrasound. Versus other] Patient's symptoms improved over duration of stay with above-stated therapies. Findings and discharge diagnosis discussed with patient/family followed by verbalization of understanding Return precautions discussed with patient/family whom verbalize understanding. Discharge Plan Departure Patient Disposition: Home Clinical Impression: Chest pain, atypical, Acute chest wall pain Instructions: DI for Atypical Chest Pain Activity Restrictions/Additional Instructions: *You have been diagnosed with [chest wall pain. Your labs, imaging and EKGs are very reassuring. There is no evidence of a cardiac disease, blood clots, kidney stone or other serious diagnosis] *What to do: *Please continue to take your regular medications as directed. [x] New medication prescriptions sent to your pharmacy: [[facility] in [place] ] [ ] New medication written as a paper prescription [ ] No new medications given *Please follow up with your primary care provider in 2-3 days, call for an appointment. Let them know you were seen in the Emergency Department and that we ask that you be seen in follow up. We will electronically transmit a record of today's note if your PCP is in our system *If you do not have a primary care provider please contact the [facility] Resource line at [phone]. They will ask some questions about your medical history and help get you set up with a doctor in the community. *Return to Emergency Department if you should have any new, worsening or concerning symptoms, such as [fever greater than 101 F, shaking chills, worsening pain, persistent vomiting or other bothersome symptoms] Prescriptions: New tramadol [Ultram] 50 mg tablet 25 mg PO Q8H PRN (Reason: pain) Qty: 20 RF: 0 No Action (DME) Disabled [place] Permit Qty: 1 RF: 0 atorvastatin 40 MG tablet 40 mg PO HS Qty: 0 RF: 0 aspirin 81 MG tablet,delayed release (DR/EC) 81 mg PO QDAY Qty: 0 RF: 0 metoprolol succinate [Toprol XL] 50 MG tablet extended release 24 hr 50 mg PO QDAY Qty: 0 RF: 0 irbesartan 300 mg tablet 300 mg PO DAILY Qty: 90 RF: 0 meloxicam 15 mg tablet 15 mg PO DAILY Qty: 30 RF: 1 alendronate [Fosamax] 70 mg tablet 70 mg PO QWEEK Qty: 12 RF: 0 levothyroxine 125 mcg capsule 125 mcg PO DAILY Qty: 90 RF: 3 hydrochlorothiazide 12.5 mg tablet 12.5 mg PO DAILY Qty: 90 RF: 3 Referrals: Mimi Becerra MD [Primary Care Provider] -
[2020-10-11 15:15] LABS: Alanine Aminotransferase 19 IU/L (<35); Albumin Globulin Ratio 1.2 (1.0-2.8); Alkaline Phosphatase 68 U/L (38-126); Aspartate Aminotransferase 27 IU/L (14-36); Bilirubin Total 0.8 mg/dL (0.2-1.3); Blood Urea Nitrogen 22 mg/dL (7-17); Calcium 9.8 mg/dL (8.4-10.2); Carbon Dioxide 31 mmol/L (22-32); Chloride 103 mmol/L (98-107); Creatine Kinase 50 U/L (30-135); Globulin 3.3 g/dL (1.7-4.1); Glucose 108 mg/dL (80-110); HEMOLYSIS < 15 (0-50); Lipase 64 U/L (23-300); Potassium 3.9 mmol/L (3.4-5.1); Sodium 140 mmol/L (137-145); Total Protein 7.3 g/dL (6.3-8.2)
[2020-10-11 15:21] LABS: Prothrombin Time 11.4 SECONDS (10.1-12.7)
[2020-10-11 15:24] LABS: PTT Partial Thromboplastin Tim 32 SECONDS (26.4-36.2)
[2020-10-11 15:26] LABS: Troponin I < 0.012 ng/mL (0.01-0.034)
--- NOTE | 2020-10-11 15:31 | DI.CT.S_ITS ---
PROCEDURE: CT ANGIO CHEST PE PROTOCOL INDICATIONS: severe R sided chest pain TECHNIQUE: After the administration of intravenous contrast, 2 mm thick sections acquired from the pulmonary apices to the posterior costophrenic angles. 3-dimensional maximum intensity projection (MIP) coronal and sagittal reformats were then acquired through the thorax. For radiation dose reduction, the following was used: automated exposure control, adjustment of mA and/or kV according to patient size. COMPARISON: [facility], CT, KIDNEY/ URETER/BLADDER, 11/13/2016, 11:24. [facility], CR, XR CHEST 1V, 10/11/2020, 14:12. FINDINGS: Image quality: Excellent. Pulmonary arteries: Pulmonary arteries are normal in size, and demonstrate no intraluminal filling defects to suggest central pulmonary embolism. Lungs and pleura: Lungs are clear. No pleural effusions or pneumothorax. Central and peripheral airways are patent. Mediastinum: Heart size is prominent, without pericardial effusion. No mediastinal or hilar adenopathy. Thoracic aorta is normal in caliber and enhancement. Esophagus is normal in caliber, without hiatal hernia. Bones and chest wall: No suspicious bony lesions. Ribs and thoracic spine appear intact throughout. Thyroid gland is unremarkable. No axillary or supraclavicular adenopathy. Abdomen: There is nodularity of the left adrenal gland, unchanged. Otherwise, visualized upper abdominal solid organs appear normal in the early arterial phase of enhancement. IMPRESSION: 1. No visualized pulmonary embolism. Lungs are clear. Dictated by: Rachana Wiggins M.D. on 10/11/2020 at 16:20 Approved by: Rachana Wiggins M.D. on 10/11/2020 at 16:23
[2020-10-11] MEDS: ACETAMINOPHEN 325 MG TABLET 650 MG PO (15:42)
[2020-10-11 15:51] LABS: D Dimer 202 ng/mL (<230)
--- NOTE | 2020-10-11 16:38 | DI.US.S_ITS ---
PROCEDURE: US RENAL COMPLETE INDICATIONS: severe R flank pain, increased creatinine TECHNIQUE: Real-time scanning was performed of the kidneys and bladder, with image documentation. COMPARISON: None. FINDINGS: Kidneys: Kidneys are normal in size. Right kidney measures 11.4 cm long; left kidney measures 11.4 cm long. Right renal cortical thickness is 1.5 cm; left renal cortical thickness is 1.4 cm. Renal cortical echotexture is normal. No hydronephrosis or nephrolithiasis. No suspicious solid mass lesions. Bladder: Pre-void bladder volume is 119 mL. Pre-void images demonstrate no intraluminal masses or stones. Miscellaneous: No free pelvic fluid. IMPRESSION: No hydronephrosis or nephrolithiasis. No acute abnormality is seen. Dictated by: Dg Quintero M.D. on 10/11/2020 at 18:25 Approved by: Dg Quinteor M.D. on 10/11/2020 at 18:26
[2020-10-11] MEDS: KETOROLAC 30 MG/ML VIAL 15 MG IV (17:21)
== END 2020-10-11 19:20 | disposition home or self-care (01) ==
PROVIDERS: Emergency Provider Emergency Medicine; PCP Internal Medicine
DX: R07.89 Other chest pain (principal); R06.02 Shortness of breath
CPT/HCPCS: 36415; 71045; 71275; 76770; 80053; 81003; 82550; 83690; 84484; 85025; 85379; 85610; 85730; 93005; 93010; 96374; 99284; J1885; Q9967

== ENCOUNTER → 2020-10-28 10:09 | Outpatient (CLI) | payer MEDICARE, OTHER, SELFPAY ==
--- NOTE | 2020-10-28 10:10 | DI.ECHO.S_ITS ---
[place] [facility]---------+ [facility] +---------+ : : [address] : : : : [id number] : : : : Phone: [phone]+ Echocardiogram Report + + :Name: DORITA HOPPER Study Date: 10/28/2020 Height: 63 in : :[facility] ReadingLocation: Weight: 240 lb: : Gender: Female BSA: 2.1 m2 : :: 1940 Age: 80 yrs : :Reason For Study: CABG : :Ordering Physician: RUDY : :SILVIA Performed By: Wilner Ferrell : :Referring: SILVIA GRANT : + + Interpretation Summary The left ventricle is grossly normal size. The ejection fraction is estimated to be 50-55%. The right ventricle grossly appears normal in size with probable normal systolic function. There is mild to moderate mitral regurgitation. There is mild tricuspid regurgitation. The right ventricular systolic pressure is estimated to be at least 41 mmHg based on an estimated right atrial pressure of 8 mm Hg. Procedure: A two-dimensional transthoracic echocardiogram with color flow and Doppler was performed. The study quality was technically adequate. There is no prior echocardiogram noted for this patient. The patient was in normal sinus rhythm during the exam. Left Ventricle: The left ventricle is grossly normal size. Proximal septal thickening is noted. There is no echo evidence for significant left ventricular outflow tract obstruction. There is no thrombus. The ejection fraction is estimated to be 50-55%. Septal motion is consistent with post- operative state. Diastolic parameters suggest a relaxation abnormality of the left ventricle, consistent with probable normal filling pressures. Right Ventricle: The right ventricle grossly appears normal in size with probable normal systolic function. Atria: The left atrium is mildly dilated. The right atrium is normal in size. Doppler interrogation and injection of saline echo contrast shows no evidence for an interatrial shunt. Mitral Valve: There is mild mitral annular calcification. The mitral valve leaflets are slightly calcified. The mitral valve chordae are thickened and/or calcified. There is mild to moderate mitral regurgitation. Aortic Valve: There is mild aortic valve sclerosis. There is discrete nodular thickening of the non- coronary cusp. The aortic valve is trileaflet. There is no aortic valve stenosis. There is trace aortic regurgitation. Tricuspid Valve: The tricuspid valve is normal. There is mild tricuspid regurgitation. The right ventricular systolic pressure is estimated to be at least 41 mmHg based on an estimated right atrial pressure of 8 mm Hg. Pulmonic Valve: The pulmonic valve is not well seen, but is grossly normal. There is no pulmonic valvular regurgitation. Great Vessels: The aortic root is normal size. The dimensions of the ascending aorta are normal. The IVC is dilated (diameter is greater than 2.1 cm) yet it collapses greater than 50% with a sniff. This suggests a right atrial pressure of 8 mm Hg. Pericardium/ Pleura There is no pericardial effusion. There is no pleural effusion. MMode/2D Measurements & Calculations LVIDd: 5.3 cm LVOT diam: 2.1 cm LVIDs: 3.9 cm Ao root diam: 2.9 cm FS: 25.3 % asc Aorta Diam: 2.8 cm IVSd: 1.0 cm LVPWd: 0.76 cm LV goss. diameter/BSA (cm/m^2): 2.5 LV sys. diameter/BSA (cm/m^2): 1.9 LA A2 area: 22.8 cm2 RA area: 18.9 cm2 LA A4 area: 22.7 cm2 IVC diam: 2.2 cm LA length (vol): 5.3 cm LA vol: 82.8 ml LA vol index: 39.6 ml/m2 TAPSE: 1.8 cm Doppler Measurements & Calculations Ao V2 max: 121.0 cm/sec LVOT Max Dillan: 79.2 cm/sec Ao V2 mean: 88.1 cm/sec LV V1 max P.5 mmHg Ao max P.9 mmHg LV V1 VTI: 22.5 cm Ao mean P.5 mmHg TOÑO(I,D): 2.6 cm2 Ao V2 VTI: 30.3 cm TOÑO(V,D): 2.3 cm2 sev ratio: 0.74 TOÑO indexed to BSA (cm^2/m^2): 1.3 MV E max dillan: 59.8 cm/sec TR max dillan: 285.8 cm/sec MV A max dillan: 77.5 cm/sec TR max P.7 mmHg MV E/A: 0.77 PA V2 max: 85.7 cm/sec Med Peak E' Dillan: 5.4 cm/sec PA V2 mean: 65.8 cm/sec E/E' med: 11.1 PA mean P.8 mmHg Lat Peak E' Dillan: 10.0 cm/sec PA pr(Accel): 31.2 mmHg E/E' lat: 6.0 E/e' average: 8.6 MV dec time: 0.27 sec SVLVOT): 80.0 ml Reading Physician:03:11 PM
== END ==
PROVIDERS: PCP Internal Medicine; Referring Provider Internal Medicine; Visit Provider Internal Medicine
DX: I08.3 Combined rheumatic disorders of mitral, aortic and tricuspid valves (principal); I25.810 Atherosclerosis of coronary artery bypass graft(s) without angina pectoris; Z95.1 Presence of aortocoronary bypass graft
CPT/HCPCS: 93306

== ENCOUNTER 2020-11-14 06:46 | Emergency (ER) | payer MEDICARE, OTHER, SELFPAY ==
[2020-11-14] VITALS (17 sets, daily range): BP systolic 155–201; BP diastolic 69–81; PULSE 51–63; RESP 15–20; TEMP 36.8; O2SAT 97–100
--- NOTE | 2020-11-14 07:12 | DI.RAD.S_ITS ---
PROCEDURE: XR CHEST 1V INDICATIONS: CHF TECHNIQUE: One view of the chest was acquired. COMPARISON: [facility], CT, CT ANGIO CHEST PE PROTOCOL, 10/11/2020, 15:47. [facility], CR, XR CHEST 1V, 10/11/2020, 14:12. FINDINGS: Surgical changes and devices: Numerous mediastinal clips are seen. Lungs and pleura: On this semiupright portable chest examination, no large pneumothorax or large pleural effusions are seen. No focal infiltrates are seen. Minimal interstitial prominence can be seen. Mediastinum: Mediastinal contours appear normal. Atherosclerotic calcification of the aortic arch is noted. Moderate cardiomegaly is seen. Bones and chest wall: No suspicious bony lesions. Degenerative changes are seen, particular involving the left shoulder. Overlying soft tissues appear unremarkable. IMPRESSION: Moderate cardiomegaly and interstitial prominence, which are consistent with the given clinical history of CHF. Postoperative and degenerative changes are seen. Dictated by: Julien Obregon M.D. on 11/14/2020 at 7:24 Approved by: Julien Obregon M.D. on 11/14/2020 at 7:25
--- NOTE | 2020-11-14 07:27 | ED.EXTPRO ---
HPI - Extremity Problem General Chief complaint: Extremity Problem,Nontraumatic Stated complaint: feet and leg swollen /and mid back pain Time Seen by Provider: 11/14/20 06:49 Source: patient Mode of arrival: Ambulatory Limitations: no limitations History of Present Illness HPI Narrative: 80-year-old female nonsmoker with a history of hypothyroid, coronary artery disease, hypertension, hyperlipidemia presents with a chief complaint of lower extremity swelling and some calf pain. She has been having ongoing trouble with her left knee and is in fact scheduled to have surgery on Sunday. She denies any new injury, falls, twists or trauma. She denies any obvious overuse. She states that she has been having some increasing pain in the posterior of her knee and increased swelling in her left foot for at least the past few days. She denies any systemic findings such as fever, chills nor nausea or vomiting. She has no chest pain, shortness of breath or significant fatigue. She denies any redness, warmth or red streaks on her left leg. She has had no recent trauma, travel or history of clot. Additionally she thinks maybe her right foot is swollen a bit to and she took a Lasix yesterday and states that she had significant urine production and feels a bit better in that regard. Related Data Home Medications Medication Instructions Recorded Confirmed aspirin 81 mg PO QDAY #0 07/25/16 11/08/20 atorvastatin 80 mg PO HS #0 07/25/16 11/08/20 metoprolol succinate [Toprol XL] 100 mg PO QPM #0 09/26/17 11/08/20 acetaminophen 500 mg PO DAILY 11/08/20 11/08/20 hydralazine 50 mg PO BID 11/08/20 11/08/20 Previous Rx's Medication Instructions Recorded Disabled [place] Permit #1 ea 07/05/18 irbesartan 300 mg tablet 300 mg PO DAILY #90 tab 11/27/18 levothyroxine 125 mcg capsule 125 mcg PO DAILY #90 cap 04/17/19 apixaban [Eliquis DVT-PE Treat 30D See Rx Instructions .ROUTE 11/14/20 Start] .COMPLEX #74 ea Allergies Allergy/AdvReac Type Severity Reaction Status Date / Time peanut [PEANUT] Allergy Severe Rash, Verified 03/07/20 09:42 difficulty breathing Penicillins [PENICILLINS] Allergy Intermediate Rash Verified 03/07/20 09:42 codeine [CODEINE] AdvReac Severe High fever Verified 11/08/20 13:10 Influenza Virus Vaccines AdvReac Severe High Verified 11/08/20 13:10 fevers - patient can't remember the rest Review of Systems Constitutional Constitutional: Denies chills, Denies fatigue, Denies fever(s), Denies frequent falls, Denies lethargy and Denies weakness Eyes Eyes: Denies change in vision, Denies eye discharge, Denies irritation and Denies loss of vision ENT Ears, Nose, Mouth, and Throat: Denies change in voice, Denies dizziness, Denies neck pain, Denies sore throat and Denies throat swelling Cardiovascular Cardiovascular: Denies chest pain, Denies irregular heart rhythm, Denies lightheadedness, Denies palpitations, Denies dyspnea, Denies dyspnea on exertion and Denies orthopnea Respiratory Respiratory: Denies cough, Denies dyspnea, Denies dyspnea on exertion and Denies wheezing Gastrointestinal Gastrointestinal: Denies abdominal pain, Denies change in bowel habits, Denies diarrhea, Denies nausea and Denies vomiting Musculoskeletal Musculoskeletal: Reports arthralgias, Reports joint swelling, Denies neck pain and Denies numbness Integumentary/Breasts Skin/Breast: Denies pruritus, Denies erythema, Denies rash and Denies wounds Neurologic Neurologic: Denies behavioral changes, Denies confusion, Denies dizziness, Denies frequent falls, Denies loss of vision, Denies numbness and Denies weakness Psychiatric Psychiatric: Denies anxiety, Denies behavioral changes, Denies confusion, Denies depression, Denies homicidal ideation and Denies suicidal ideation Endocrine Endocrine: Denies fatigue, Denies flushing and Denies palpitations Hematologic/Lymphatic Hematologic/Lymphatic: Denies easy bruising Allergic/Immunologic Allergic/Immunologic: Denies urticaria, Denies throat swelling and Denies wheezing Patient History Medical History Arthritis Bilateral lower extremity edema Borderline diabetes Chronic back pain Coronary artery disease (1998) Hearing impaired History of arm fracture Hx of diastolic dysfunction Hypertension Hypothyroidism (Unknown) Intermittent chest pain Irritable bowel disease Mumps Osteoarthritis Osteoporosis Pneumonia Right arm fracture Right-sided chest pain Surgical History History of knee replacement (2013) Hx of blepharoplasty Hx of breast biopsy (2006) Hx of cataract surgery (2013) Hx of cholecystectomy (11/2016) Hx of coronary artery bypass graft (1998) Hx of dilation and curettage Hx of hysterectomy (1996) Hx of rotator cuff surgery Hx of tubal ligation Family History Child Heart disease Mother Diabetes mellitus Father Heart disease Social History household members: children Smoking Status: Never smoker second hand exposure: No alcohol intake: never substance use type: does not use Smoking Status: Never smoker alcohol intake frequency: 0-2 drinks per day Substance Use Type: does not use and marijuana Exam Narrative Exam Narrative: GENERAL: [80] year old patient appears stated age. Well-developed patient, in no obvious significant distress. No increased work of breathing, no evidence of conversational dyspnea HEAD: Atraumatic. Normocephalic. EYES: Pupils equal round and reactive. Extraocular motions intact. No scleral icterus. No injection or drainage. ENT: Nose without bleeding, purulent drainage. Throat without erythema, tonsillar hypertrophy or exudate. Airway patent. NECK: Trachea midline. Non tender CARDIOVASCULAR: Regular rate and rhythm without murmurs, gallops, or rubs. RESPIRATORY: Clear to auscultation. Breath sounds equal bilaterally. No wheezes, rales, or rhonchi. No tachypnea or use of accessory muscles GASTROINTESTINAL: Abdomen soft, non-tender, nondistended. EXTREMITIES: Right lower extremity with 1+ pitting edema, left lower extremity 2+ pitting edema no erythema or warmth. No calf pain on palpation or flexion of the foot. She does have pain and some minimal swelling in the popliteal fossa. No significant or obvious effusion or ligamentous instability. BACK: Nontender without deformity or crepitance. No flank tenderness. NEURO: AOx3. SKIN: No rash or erythema of visible areas Initial Vital Signs Initial Vital Signs: Vital Signs Blood Pressure 186/71 H 11/14/20 06:54 Course Orders Ordered: ED Orders 11/14/20 07:12 XR chest 1V Stat 11/14/20 07:40 Complete Blood Count AUTO DIFF Stat Comprehensive Metabolic Panel Stat Magnesium Stat NT-proBNP (BNP-Adult 18+) Stat Troponin & CK Cardiac Panel Stat 11/14/20 07:50 Urine Microscopic Stat 11/14/20 08:01 US periph venous low extrem lt Stat 11/14/20 08:12 COVID19 -Nasal swab/Pre-Proc Stat 11/14/20 09:32 CT angio chest PE protocol Stat Discontinued Medications Apixaban (Apixaban 5 Mg Tablet) 5 mg PO NOW ONE Stop: 11/14/20 09:20 Last Admin: 11/14/20 09:29 Dose: 5 mg Documented by: TED Lidocaine (Lidocaine Patch 1 Each Adh..Patch) 1 each TOP NOW ONE Stop: 11/14/20 08:16 Last Admin: 11/14/20 09:15 Dose: 1 each Documented by: TED Vital Signs Vital signs: Vital Signs - 8 hr 11/14/20 07:49 11/14/20 08:00 11/14/20 08:01 Pulse Rate 62 58 L 57 L Respiratory Rate 17 17 Blood Pressure 198/81 H Pulse Oximetry 97 99 100 11/14/20 08:30 11/14/20 08:31 11/14/20 09:00 Pulse Rate 56 L 55 L 63 Respiratory Rate 19 19 20 Blood Pressure 182/76 H Pulse Oximetry 98 99 98 11/14/20 09:01 11/14/20 10:27 11/14/20 10:30 Pulse Rate 61 59 L 57 L Respiratory Rate 19 Blood Pressure 183/79 H 155/69 H Pulse Oximetry 98 98 99 11/14/20 10:31 11/14/20 11:00 11/14/20 11:01 Pulse Rate 56 L 51 L 56 L Respiratory Rate 16 Blood Pressure 183/77 H 201/78 H Pulse Oximetry 99 100 98 11/14/20 11:02 Pulse Rate 57 L Respiratory Rate Blood Pressure 176/77 H Pulse Oximetry 99 MDM - Extremity (Nontraumatic) Lab Data Result diagrams: 11/14/20 07:40 11/14/20 07:40 Labs: Lab Results 11/14/20 11/14/20 11/14/20 Range/Units 07:40 07:40 07:40 WBC 4.4 L (4.5-11.0) X10^3/uL RBC 4.44 (4.0-5.2) X10^6/uL Hgb 12.7 (12.0-16.0) g/dL Hct 38.4 (36-46) % MCV 86.6 (80-100) fL MCH 28.6 (26-34) PG MCHC 33.0 (30-36) % RDW 14.8 (11.6-14.8) % Plt Count 175 (150-400) X10^3/uL Neut % (Auto) 59.0 (50-75) % Lymph % (Auto) 23.3 L (25-40) % Dawes % (Auto) 9.9 (3-14) % Eos % (Auto) 6.6 H (2-4) % Baso % (Auto) 1.2 (0-2) % Neut # (Auto) 2600 (5097-3597) /uL Lymph # (Auto) 1000 L (9203-4663) /uL Dawes # (Auto) 400 (0-900) /uL Eos # (Auto) 300 (0-450) /uL Baso # (Auto) 100 (0-100) /uL Sodium 139 (137-145) mmol/L Potassium 4.1 (3.4-5.1) mmol/L Chloride 105 (98-107) mmol/L Carbon Dioxide 27 (22-32) mmol/L BUN 13 (7-17) mg/dL Creatinine 0.92 (0.52-1.04) mg/dL Estimated GFR 58.7 L (>60) mL/min BUN/Creatinine Ratio 14.1 (6-22) Glucose 120 H (80-110) mg/dL Calcium 9.6 (8.4-10.2) mg/dL Magnesium 2.0 (1.6-2.3) mg/dL Total Bilirubin 0.9 (0.2-1.3) mg/dL AST 34 (14-36) IU/L ALT 27 (<35) IU/L Alkaline Phosphatase 83 (38-126) U/L Total Creatine Kinase 56 (30-135) U/L CK-MB (CK-2) TNP CK-MB (CK-2) Rel Index TNP Troponin I < 0.012 (0.01-0.034) ng/mL NT-Pro-B Natriuret Pep 743 H (<450) pg/mL Total Protein 7.4 (6.3-8.2) g/dL Albumin 4.0 (3.5-5.0) g/dL Globulin 3.4 (1.7-4.1) g/dL Albumin/Globulin Ratio 1.2 (1.0-2.8) Urine RBC (0-5/HPF) Urine WBC (0-5/HPF) Ur Squamous Epith Cells (0-5/HPF) Urine Bacteria (None) Ur Culture Indicated? SARS-CoV-2 (PCR) (Negative) 11/14/20 11/14/20 Range/Units 07:50 08:12 WBC (4.5-11.0) X10^3/uL RBC (4.0-5.2) X10^6/uL Hgb (12.0-16.0) g/dL Hct (36-46) % MCV (80-100) fL MCH (26-34) PG MCHC (30-36) % RDW (11.6-14.8) % Plt Count (150-400) X10^3/uL Neut % (Auto) (50-75) % Lymph % (Auto) (25-40) % Dawes % (Auto) (3-14) % Eos % (Auto) (2-4) % Baso % (Auto) (0-2) % Neut # (Auto) (9798-8249) /uL Lymph # (Auto) (4345-3769) /uL Dawes # (Auto) (0-900) /uL Eos # (Auto) (0-450) /uL Baso # (Auto) (0-100) /uL Sodium (137-145) mmol/L Potassium (3.4-5.1) mmol/L Chloride (98-107) mmol/L Carbon Dioxide (22-32) mmol/L BUN (7-17) mg/dL Creatinine (0.52-1.04) mg/dL Estimated GFR (>60) mL/min BUN/Creatinine Ratio (6-22) Glucose (80-110) mg/dL Calcium (8.4-10.2) mg/dL Magnesium (1.6-2.3) mg/dL Total Bilirubin (0.2-1.3) mg/dL AST (14-36) IU/L ALT (<35) IU/L Alkaline Phosphatase (38-126) U/L Total Creatine Kinase (30-135) U/L CK-MB (CK-2) CK-MB (CK-2) Rel Index Troponin I (0.01-0.034) ng/mL NT-Pro-B Natriuret Pep (<450) pg/mL Total Protein (6.3-8.2) g/dL Albumin (3.5-5.0) g/dL Globulin (1.7-4.1) g/dL Albumin/Globulin Ratio (1.0-2.8) Urine RBC None seen (0-5/HPF) Urine WBC 5-10/hpf H (0-5/HPF) Ur Squamous Epith Cells 5-10 /hpf H (0-5/HPF) Urine Bacteria None seen (None) Ur Culture Indicated? Cult not indicated SARS-CoV-2 (PCR) Negative (Negative) Urine Dip Bedside Urine Glucose Negative Bedside Urine Bilirubin - Negative Bedside Urine Ketone - Negative Urine Specific [place]wey 1.015 Bedside Urine Occult Blood - Negative Bedside Urine pH 6.5 Bedside Urine Protein - Negative Bedside Urine Urobilinogen - Negative Bedside Urine Nitrite - Negative Bedside Urine Leukocytes +/- 15 Esterase Imaging Data US - DVT: Radiologist's Impression: [address] [id number] ReportSigned Patient: Ursula Rodarte RMR#: [id number]: 1940Acct:[id number]/Sex: 80 / FDate of Service: 11/14/20Loc: EDAccession Number: [id number] Procedure: US perip venous low extrem lt Ordering Provider: Philippe Mendieta D.O. PROCEDURE: US PERIPH VENOUS LOW EXTREM LT INDICATIONS: PAIN AND SWELLING POSTERIOR KNEE AND CALF. NO INJURY. TECHNIQUE: Real-time imaging, as well as color and pulse Doppler interrogation, were performed of the lower extremity deep veins from the inguinal ligament to the popliteal fossa. COMPARISON: [facility], CR, XR CHEST 1V, 11/14/2020, 7:16. FINDINGS: Within the mid to distal femoral vein, there is partially occlusive thrombus. No additional findings of deep venous thrombosis can be seen. IMPRESSION: Partially occlusive thrombus seen within the mid to distal femoral vein, which is most likely chronic. Dictated by: Julien Obregon M.D. on 11/14/2020 at 8:17 Approved by: Julien Obregon M.D. on 11/14/2020 at 8:19 CT scan - chest: Radiologist's Impression: 5 Philippe Mendieta, DO Find Patient Imaging - Ursula Rodarte 80 F 1940 ACTIVITY DATE EXAM STATUS AUTHOR 11/14/20 09:32 Signed Julien Obregon 11/14/20 08:01 Signed MindiJulien 11/14/20 07:12 [facility] [place] [id number] Scan ReportSigned Patient: Ursula Rodarte RMR#: [id number]: 1940Acct:[id number]/Sex: 80 / FDate of Service: 11/14/20Loc: EDAccession Number: [id number] Procedure: CT angio chest PE protocol Ordering Provider: Philippe Mendieta D.O. PROCEDURE: CT ANGIO CHEST PE PROTOCOL INDICATIONS: worsening shortness of breath, R flank pain, new DVT discovered TECHNIQUE: After the administration of intravenous contrast, 2 mm thick sections acquired from the pulmonary apices to the posterior costophrenic angles. 3-dimensional maximum intensity projection (MIP) coronal and sagittal reformats were then acquired through the thorax. For radiation dose reduction, the following was used: automated exposure control, adjustment of mA and/or kV according to patient size. COMPARISON: [facility], US, US PERIPH VENOUS LOW EXTREM LT, 11/14/2020, 8:49. [facility], CR, XR CHEST 1V, 11/14/2020, 7:16. [facility], CT, CT ANGIO CHEST PE PROTOCOL, 10/11/2020, 15:47. FINDINGS: Image quality: Excellent. Pulmonary arteries: Pulmonary arteries are normal in size, and demonstrate no intraluminal filling defects to suggest central pulmonary embolism. Lungs and pleura: Within the inferolateral aspect the right upper lobe, there are nodular opacities seen, as on series 8 image 126, with the largest nodule measuring 5 mm. Mild dependent atelectasis is seen on the right. No pleural effusions or pneumothorax. Central and peripheral airways are patent. Mediastinum: Heart size is normal, without pericardial effusion. Mediastinal clips are seen. No mediastinal or hilar adenopathy. Thoracic aorta is normal in caliber and enhancement. Incidental note is made of a common origin of the right brachiocephalic artery and the left common carotid artery (bovine type arch). This is considered to be a developmental variant of no clinical consequence. Esophagus is normal in caliber, without hiatal hernia. Bones and chest wall: No suspicious bony lesions. Ribs and thoracic spine appear intact throughout. Thyroid gland demonstrates no significant abnormality. No axillary or supraclavicular adenopathy. Abdomen: Visualized upper abdominal solid organs appear normal in the early arterial phase of enhancement. IMPRESSION: Negative for pulmonary embolism. Right upper lobe soft tissue nodules are seen, which are stable. By published criteria, no specific imaging follow-up is recommended. Incidental note is made of: Bovine type aortic branching pattern Dictated by: Julien Obregon M.D. on 11/14/2020 at 9:27 Approved by: Julien Obregon M.D. on 11/14/2020 at 9:37 MDM Narrative Medical decision making narrative: History and physical exam would largely suggest that this is a unilateral swelling, however her mention of some right foot swelling more notable yesterday suggested a more systemic approach is indicated. Renal failure and CHF considered. She has no increased work of breathing, conversational dyspnea, orthopnea or exertional dyspnea nor classic findings on her lung exam. Regarding her unilateral pain and swelling DVT and cellulitis as well as gout and septic arthritis are considered. DVT noted on US, imaging to suggest it is old, however pain and swelling are new. Tx initiated and CTA ordered to evaluated for cause of R upper back pain and persistent SOB. yardage caller ortho notified in order to relay message to Dr. Molina given her scheduled surgery which will likely be altered by this new development. Discharge Plan Departure Patient Disposition: Home Clinical Impression: DVT (deep venous thrombosis) Qualifiers: DVT location: lower extremity Affected thrombotic vein of extremity: femoral Chronicity: unspecified Laterality: left Qualified Code(s): I82.412 - Acute embolism and thrombosis of left femoral vein Instructions: Deep Vein Thrombosis Activity Restrictions/Additional Instructions: *You have been diagnosed with [left lower extremity DVT. There is no evidence of a blood clot in her chest or lung] *What to do: *Please continue to take your regular medications as directed. [x ] New medication prescriptions sent to your pharmacy: [[facility] ] [ ] New medication written as a paper prescription [ ] No new medications given *Please follow up with your primary care provider in 2-3 days, call for an appointment. Let them know you were seen in the Emergency Department and that we ask that you be seen in follow up. We will electronically transmit a record of today's note if your PCP is in our system *If you do not have a primary care provider please contact the [facility] Resource line at [phone]. They will ask some questions about your medical history and help get you set up with a doctor in the community. *Return to Emergency Department if you should have any new, worsening or concerning symptoms, such as [fever greater than 101 F, shaking chills, worsening pain, persistent vomiting or other bothersome symptoms] Prescriptions: New Eliquis DVT-PE Treat 30D Start 5 mg (74 tabs) tablets,dose pack See Rx Instructions .ROUTE .COMPLEX Qty: 74 RF: 0 No Action (DME) Disabled [place] Permit Qty: 1 RF: 0 atorvastatin 40 MG tablet 80 mg PO HS Qty: 0 RF: 0 aspirin 81 MG tablet,delayed release (DR/EC) 81 mg PO QDAY Qty: 0 RF: 0 metoprolol succinate [Toprol XL] 50 MG tablet extended release 24 hr 100 mg PO QPM Qty: 0 RF: 0 irbesartan 300 mg tablet 300 mg PO DAILY Qty: 90 RF: 0 levothyroxine 125 mcg capsule 125 mcg PO DAILY Qty: 90 RF: 3 hydralazine 50 mg Tablet 50 mg PO BID RF: 0 acetaminophen 500 mg Capsule 500 mg PO DAILY RF: 0 Referrals: Linda Molnia MD [Physician] - Mimi Becerra MD [Primary Care Provider] -
[2020-11-14 07:59] LABS: Add Manual Diff / Slide Review NO; Basophils Absolute Auto 100 /uL (0-100); Basophils Percent Auto 1.2 % (0-2); Eosinophils Absolute Auto 300 /uL (0-450); Eosinophils Percent Auto 6.6 % (2-4); Hematocrit 38.4 % (36-46); Hemoglobin 12.7 g/dL (12.0-16.0); Lymphocytes Absolute Auto 1000 /uL (1100-4500); Lymphocytes Percent Auto 23.3 % (25-40); Mean Corpuscular Hemoglobin 28.6 PG (26-34); Mean Corpuscular Volume 86.6 fL (80-100); Monocytes Absolute Auto 400 /uL (0-900); Monocytes Percent Auto 9.9 % (3-14); Neutrophils Absolute Auto 2600 /uL (1500-7000); Platelet Count 175 X10^3/uL (150-400); Red Blood Cell Count 4.44 X10^6/uL (4.0-5.2); Red Cell Distribution Width 14.8 % (11.6-14.8); White Blood Cell Count 4.4 X10^3/uL (4.5-11.0)
--- NOTE | 2020-11-14 08:01 | DI.US.S_ITS ---
PROCEDURE: US PERIPH VENOUS LOW EXTREM LT INDICATIONS: PAIN AND SWELLING POSTERIOR KNEE AND CALF. NO INJURY. TECHNIQUE: Real-time imaging, as well as color and pulse Doppler interrogation, were performed of the lower extremity deep veins from the inguinal ligament to the popliteal fossa. COMPARISON: [facility], CR, XR CHEST 1V, 11/14/2020, 7:16. FINDINGS: Within the mid to distal femoral vein, there is partially occlusive thrombus. No additional findings of deep venous thrombosis can be seen. IMPRESSION: Partially occlusive thrombus seen within the mid to distal femoral vein, which is most likely chronic. Dictated by: Julien Obregon M.D. on 11/14/2020 at 8:17 Approved by: Julien Obregon M.D. on 11/14/2020 at 8:19
[2020-11-14 08:09] LABS: Alanine Aminotransferase 27 IU/L (<35); Albumin Globulin Ratio 1.2 (1.0-2.8); Alkaline Phosphatase 83 U/L (38-126); Aspartate Aminotransferase 34 IU/L (14-36); BUN Creatinine Ratio 14.1 (6-22); Bilirubin Total 0.9 mg/dL (0.2-1.3); Blood Urea Nitrogen 13 mg/dL (7-17); Calcium 9.6 mg/dL (8.4-10.2); Carbon Dioxide 27 mmol/L (22-32); Chloride 105 mmol/L (98-107); Estimated Glomerular Filt Rate 58.7 mL/min (>60); Globulin 3.4 g/dL (1.7-4.1); Glucose 120 mg/dL (80-110); HEMOLYSIS 31 (0-50); Potassium 4.1 mmol/L (3.4-5.1); Sodium 139 mmol/L (137-145); Total Protein 7.4 g/dL (6.3-8.2)
[2020-11-14 08:10] LABS: Creatine Kinase 56 U/L (30-135)
[2020-11-14 08:15] LABS: Bacteria Urine None Seen; RBC Urine None Seen (0-5/HPF)
[2020-11-14 08:21] LABS: NT-proBNP (BNP-Adult 18+) 743 pg/mL (<450); Troponin I < 0.012 ng/mL (0.01-0.034)
[2020-11-14 08:25] LABS: Culture Indicated Urine Cult Not Indicated; Squamous Epithelial Cell Urine 5-10 /HPF (0-5/HPF); WBC Urine 5-10/HPF (0-5/HPF)
[2020-11-14 08:32] LABS: COVID19 -Nasal RAPID Negative (Negative)
[2020-11-14] MEDS: LIDOCAINE PATCH 1 EACH ADH..PATCH TOP (09:15)
[2020-11-14] MEDS: APIXABAN 5 MG TABLET PO (09:29)
--- NOTE | 2020-11-14 09:32 | DI.CT.S_ITS ---
PROCEDURE: CT ANGIO CHEST PE PROTOCOL INDICATIONS: worsening shortness of breath, R flank pain, new DVT discovered TECHNIQUE: After the administration of intravenous contrast, 2 mm thick sections acquired from the pulmonary apices to the posterior costophrenic angles. 3-dimensional maximum intensity projection (MIP) coronal and sagittal reformats were then acquired through the thorax. For radiation dose reduction, the following was used: automated exposure control, adjustment of mA and/or kV according to patient size. COMPARISON: [facility], US, US PERIPH VENOUS LOW EXTREM LT, 11/14/2020, 8:49. [facility], CR, XR CHEST 1V, 11/14/2020, 7:16. [facility], CT, CT ANGIO CHEST PE PROTOCOL, 10/11/2020, 15:47. FINDINGS: Image quality: Excellent. Pulmonary arteries: Pulmonary arteries are normal in size, and demonstrate no intraluminal filling defects to suggest central pulmonary embolism. Lungs and pleura: Within the inferolateral aspect the right upper lobe, there are nodular opacities seen, as on series 8 image 126, with the largest nodule measuring 5 mm. Mild dependent atelectasis is seen on the right. No pleural effusions or pneumothorax. Central and peripheral airways are patent. Mediastinum: Heart size is normal, without pericardial effusion. Mediastinal clips are seen. No mediastinal or hilar adenopathy. Thoracic aorta is normal in caliber and enhancement. Incidental note is made of a common origin of the right brachiocephalic artery and the left common carotid artery (bovine type arch). This is considered to be a developmental variant of no clinical consequence. Esophagus is normal in caliber, without hiatal hernia. Bones and chest wall: No suspicious bony lesions. Ribs and thoracic spine appear intact throughout. Thyroid gland demonstrates no significant abnormality. No axillary or supraclavicular adenopathy. Abdomen: Visualized upper abdominal solid organs appear normal in the early arterial phase of enhancement. IMPRESSION: Negative for pulmonary embolism. Right upper lobe soft tissue nodules are seen, which are stable. By published criteria, no specific imaging follow-up is recommended. Incidental note is made of: Bovine type aortic branching pattern Dictated by: Julien Obregon M.D. on 11/14/2020 at 9:27 Approved by: Julien Obregon M.D. on 11/14/2020 at 9:37
== END 2020-11-14 11:10 | disposition home or self-care (01) ==
PROVIDERS: Emergency Provider Emergency Medicine; PCP Internal Medicine
DX: I82.412 Acute embolism and thrombosis of left femoral vein (principal); Z20.822 Contact with and (suspected) exposure to COVID-19
CPT/HCPCS: 36415; 71045; 71275; 80053; 81003; 81015; 82550; 83735; 83880; 84484; 85025; 87635; 93971; 99284; C9803; Q9967

== ENCOUNTER → 2020-11-15 10:57 | Outpatient (CLI) | payer MEDICARE, OTHER, SELFPAY ==
--- NOTE | 2020-11-19 13:17 | PM.PFT.1 ---
Pulmonary Function Test Referral & Results Date Patient Seen: 11/19/20 Requesting provider: Jose Medeiros Indication: Shortness of breath Results: The spirometry demonstrates an FVC of 1.67 L which is 67% of predicted. The FEV1 was measured at 1.23 L which is 67% of predicted. The FEV1/FVC ratio was 74 which is 99% of predicted. Following the administration of bronchodilator there was a 13% improvement in FEV1 and a 40% improvement in FEF 25-75%. Lung volumes show an SVC of 1.80 L which is 70% of predicted. The diffusing capacity was measured at 14.09 which is 61% of predicted. No hemoglobin value was provided, so no correction for potential anemia could be made, if appropriate. The maximum voluntary ventilation was reduced Interpretation: This study demonstrates mild obstructive lung disease based on reduction FEV1 although FEV1/FVC ratio is preserved. There was benefit after bronchodilator as above and shape a flow volume loop also is consistent with mild obstructive lung disease There is also [id number] restrictive lung disease based on reduction SVC There is also [id number] reduction diffusing capacity as above
== END ==
PROVIDERS: PCP Internal Medicine; Referring Provider Internal Medicine Cardiovascular Disease; Visit Provider Internal Medicine Cardiovascular Disease
DX: R06.02 Shortness of breath (principal); J98.8 Other specified respiratory disorders
CPT/HCPCS: 94060; 94726; 94729

== ENCOUNTER → 2020-11-18 19:33 | Outpatient (CLI) | payer MEDICARE, OTHER, SELFPAY ==
--- NOTE | 2020-11-18 | DI.MRI.S_ITS ---
PROCEDURE: MR THORACIC SPINE WO CON INDICATIONS: pain in thoracic spine TECHNIQUE: Noncontrast sagittal T1 spine echo and T2 fast spin echo, sagittal STIR, axial T1 and T2 fast spin echo through the thoracic spine. COMPARISON: None. FINDINGS: Image quality: Excellent. Alignment and Curvature: There is normal bony alignment. Bone Marrow: Marrow is of normal overall signal except at T7 and to a slight degree the anterior inferior endplate at T6. There is a focal mild wedge compression fracture at T7, and a slight elevated fluid signal at the anterior inferior T6 vertebral body marrow space is also likely reflective of a mild compression fracture at that site. There is chronic degenerative disc disease that is moderate in severity at T8-T9 but without associated marrow edema. This produces focal posterior disc bulging with a disc protrusion at the midline, producing mild anterior spinal stenosis at this level.. No acute vertebral body compression fractures. Spinal Cord: Visualized spinal cord is normal in size and signal. Paraspinous Soft Tissues: No paravertebral masses. Miscellaneous: On axial images, central canal and foramina appear widely patent at all scanned levels. IMPRESSION: There is a mild anterior wedge compression fracture at the anterior upper 3rd of the T7 vertebral body and a slight degree of focal marrow edema is present immediately adjacent at the anterior inferior border of the T6 vertebral body marrow space. By appearance this is considered osteoporotic in origin. Moderate degenerative disc disease is present at T8-T9 with a focal disc protrusion exactly at the midline measuring approximately 4 mm in width and 3 mm in maximal AP dimension producing focal mild midline impingement on the anterior border of the thoracic cord at this level. A free herniated disc fragment is not seen. Dictated by: Timothy Sales M.D. on 11/19/2020 at 11:43 Approved by: Timothy Sales M.D. on 11/19/2020 at 11:50
== END ==
PROVIDERS: PCP Internal Medicine; Referring Provider Internal Medicine; Visit Provider Internal Medicine
DX: M48.54XA Collapsed vertebra, not elsewhere classified, thoracic region, initial encounter for fracture (principal); M51.34 Other intervertebral disc degeneration, thoracic region; M51.24 Other intervertebral disc displacement, thoracic region
CPT/HCPCS: 72146

== ENCOUNTER 2021-03-31 14:24 | Emergency (ER) | payer MEDICARE, OTHER, SELFPAY ==
[2021-03-31 14:43] VITALS: BP 158/67; PULSE 60; RESP 18; TEMP 37; O2SAT 98; BMI 41.5
--- NOTE | 2021-03-31 15:16 | DI.US.S_ITS ---
PROCEDURE: [facility] LOW EXTREM LT INDICATIONS: Left leg swelling TECHNIQUE: Real-time imaging, as well as color and pulse Doppler interrogation, were performed of the lower extremity deep veins from the inguinal ligament to the popliteal fossa. COMPARISON: [facility], , [facility] LOW EXTREM LT, 11/14/2020, 8:49. FINDINGS: Within the mid to distal femoral vein, there is partially occlusive thrombus seen. This study is limited by body habitus. IMPRESSION: Partially occlusive thrombus is seen within the mid to distal femoral vein. The appearance is similar to prior. Dictated by: Julien Obregon M.D. on 03/31/2021 at 15:39 Approved by: Julien Obregon M.D. on 03/31/2021 at 15:42
--- NOTE | 2021-03-31 20:02 | ED.EXTPRO ---
HPI - Extremity Problem General Chief complaint: Extremity Problem,Nontraumatic Stated complaint: Leg is swollen, had blood clot on thinners, pain Time Seen by Provider: 03/31/21 19:55 Source: patient Mode of arrival: Family Vehicle Limitations: no limitations History of Present Illness HPI Narrative: Patient is a 80-year-old female with history of left lower extremity DVT diagnosed in November 2020 placed on Eliquis presenting today with 3 days of increasing leg swelling. She says she has is try to have knee surgery she started physical therapy she has noticed increasing swelling behind her left knee over the last 3 days. She tries to wear compression socks but does not always. Sent to the ED for further evaluation concern for DVT. She denies any chest pain she has no shortness of breath she has no palpitations Related Data Home Medications Medication Instructions Recorded Confirmed aspirin 81 mg tablet,delayed 81 mg PO QDAY #0 07/25/16 11/08/20 release atorvastatin 40 mg tablet 80 mg PO HS #0 07/25/16 11/08/20 metoprolol succinate 50 mg 100 mg PO QPM #0 09/26/17 11/08/20 tablet,extended release 24 hr (Toprol XL) acetaminophen 500 mg capsule 500 mg PO PRN PRN 11/08/20 11/08/20 hydralazine 50 mg tablet 25 mg PO BID 11/08/20 11/08/20 cholecalciferol (vitamin D3) 125 125 mcg PO DAILY 12/08/20 12/08/20 mcg (5,000 unit) tablet (Vitamin D3) coenzyme Q10 100 mg capsule 200 mg PO DAILY 12/08/20 12/08/20 (CoQ-10) cyanocobalamin (vitamin B-12) 2,500 mcg 12/08/20 2,500 mcg tablet dorzolamide-timolol (PF) 2 %-0.5 % drp OPHTHALMIC (EYE) 12/08/20 eye drops in a dropperette Previous Rx's Medication Instructions Recorded Disabled Mu Permit #1 ea 07/05/18 irbesartan 300 mg tablet 300 mg PO DAILY #90 tab 11/27/18 levothyroxine 125 mcg capsule 125 mcg PO DAILY #90 cap 04/17/19 apixaban 5 mg (74 tabs) tablets in See Rx Instructions .ROUTE 11/14/20 a dose pack (Eliquis DVT-PE Treat .COMPLEX #74 ea 30D Start) Allergies Allergy/AdvReac Type Severity Reaction Status Date / Time peanut [PEANUT] Allergy Severe Rash, Verified 03/31/21 14:43 difficulty breathing Penicillins [PENICILLINS] Allergy Intermediate Rash Verified 03/31/21 14:43 codeine [CODEINE] AdvReac Severe High fever Verified 03/31/21 14:43 Influenza Virus Vaccines AdvReac Severe High Verified 03/31/21 14:43 fevers - patient can't remember the rest Review of Systems Review of Systems Narrative: GENERAL: Denies chills, fatigue, malaise, fever, sweats, travel HEENT: Denies sinus pain, ear pain, sore throat, difficulty swallowing, neck pain RESPIRATORY: Denies dyspnea, cough, wheezing, hemoptysis, sputum. CARDIOVASCULAR: Denies chest pain, palpitations, orthopnea, edema GASTROINTESTINAL: Denies nausea, vomiting, abdominal pain, diarrhea, constipation, melena. : Denies dysuria, frequency, incontinence, hematuria, urinary retention, flank pain. MUSCULOSKELETAL: See HPI SKIN: No rash, no erythema, no pruritus NEUROLOGIC: Denies weakness, dizziness, headache, numbness, change in speech, confusion PSYCHIATRIC: No concerning psychosocial issues. 12 point review of systems is negative except for those stated above and HPI Patient History Medical History Arthritis Bilateral lower extremity edema Borderline diabetes Chronic back pain Coronary artery disease (1998) Hearing impaired History of arm fracture Hx of diastolic dysfunction Hypertension Hypothyroidism (Unknown) Intermittent chest pain Irritable bowel disease Mumps Osteoarthritis Osteoporosis Pneumonia Right arm fracture Right-sided chest pain Surgical History History of knee replacement (2013) Hx of blepharoplasty Hx of breast biopsy (2006) Hx of cataract surgery (2013) Hx of cholecystectomy (11/2016) Hx of coronary artery bypass graft (1998) Hx of dilation and curettage Hx of hysterectomy (1996) Hx of rotator cuff surgery Hx of tubal ligation Family History Child Heart disease Mother Diabetes mellitus Father Heart disease Social History household members: children Smoking Status: Never smoker second hand exposure: No alcohol intake: never substance use type: does not use Smoking Status: Never smoker alcohol intake frequency: 0-2 drinks per day Substance Use Type: does not use Exam Initial Vital Signs Initial Vital Signs: Vital Signs Temperature 98.6 F 03/31/21 14:43 Pulse Rate 60 03/31/21 14:43 Respiratory Rate 18 03/31/21 14:43 Blood Pressure 158/67 H 03/31/21 14:43 Pulse Oximetry 98 03/31/21 14:43 GENERAL: Alert well-appearing 80-year-old female no acute distress CARDIOVASCULAR: peripheral pulses in tact, cap refill <2 sec RESPIRATORY: No respiratory distress, speaks in full sentences without difficulty EXTREMITIES: Normal range of motion, no clubbing or edema. Neurovascularly intact Left leg is noted to be more swollen than the right. It is non erythematous. She is tender just posterior the knee. Distal pedal pulses felt. Full range of motion of the knee although somewhat limited secondary to swelling NEUROLOGICAL: Cranial nerves II through XII grossly intact. Normal gait and speech. SKIN: Warm, dry, no petechiae, no rashes or lesions. Course Orders Ordered: ED Orders 03/31/21 15:16 perip venous low extrem lt Stat Vital Signs Vital signs: Vital Signs - 8 hr 03/31/21 20:39 Pulse Rate 67 Respiratory Rate 20 Blood Pressure 141/97 H Pulse Oximetry 100 MDM - Extremity (Nontraumatic) Imaging Data US - DVT: Radiologist's Impression: PROCEDURE:? [facility] VENOUS LOW EXTREM LT ? INDICATIONS:? Left leg swelling ? TECHNIQUE:? Real-time imaging, as well as color and pulse Doppler interrogation, were performed of the lower extremity deep veins from the inguinal ligament to the popliteal fossa.? ? COMPARISON:? [facility], PERIP VENOUS LOW EXTREM LT, 11/14/2020, 8:49. ? FINDINGS:? Within the mid to distal femoral vein, there is partially occlusive thrombus seen. ? This study is limited by body habitus.? ? ? IMPRESSION:? Partially occlusive thrombus is seen within the mid to distal femoral vein.? The appearance is similar to prior.? ? Dictated by: Julien Obregon M.D. on 03/31/2021 at 15:39 ? ? [facility] Narrative Medical decision making narrative: The patient has known left DVT since November but has been on Eliquis since then she has not missed does as she has had increasing left leg swelling over the last 3 days. Ultrasound does confirm that she continues to have a thrombus in the mid to distal femoral vein exactly where it was previously. This is probably an ongoing chronic DVT other than a new DVT. Possible increased swelling secondary to increased use. Recommend that she wear compression socks and may need repeat ultrasound next week. She has no signs or symptoms of pulmonary embolism. Discharge Plan Departure Patient Disposition: Home Clinical Impression: Chronic deep vein thrombosis (DVT) Instructions: DI for Deep Vein Thrombosis Activity Restrictions/Additional Instructions: *You have been diagnosed with chronic DVT *What to do: At this time you continue to have a blood clot in your leg. Recommend repeat ultrasound in about 1 week. Please were compression stockings as recommended. *Continue to take medications as directed CONTINUE ELIQUIS. DO NOT STOP. *Follow up with your primary care provider in 2-3 days *Return to ER if you should have increasing swelling, chest pain, palpitations, shortness of breath, redness or any new, worsening or concerning symptoms Prescriptions: No Action (DME) Disabled [place] Permit Qty: 1 RF: 0 atorvastatin 40 MG tablet 80 mg PO HS Qty: 0 RF: 0 aspirin 81 MG tablet,delayed release (DR/EC) 81 mg PO QDAY Qty: 0 RF: 0 metoprolol succinate [Toprol XL] 50 MG tablet extended release 24 hr 100 mg PO QPM Qty: 0 RF: 0 irbesartan 300 mg tablet 300 mg PO DAILY Qty: 90 RF: 0 levothyroxine 125 mcg capsule 125 mcg PO DAILY Qty: 90 RF: 3 hydralazine 50 mg Tablet 25 mg PO BID RF: 0 acetaminophen 500 mg Capsule 500 mg PO PRN PRN (Reason: Pain (Scale Score 1-3)) RF: 0 Eliquis DVT-PE Treat 30D Start 5 mg (74 tabs) tablets,dose pack See Rx Instructions .ROUTE .COMPLEX Qty: 74 RF: 0 coenzyme Q10 [CoQ-10] 100 mg Capsule 200 mg PO DAILY RF: 0 cholecalciferol (vitamin D3) [Vitamin D3] 125 mcg (5,000 unit) Tablet 125 mcg PO DAILY RF: 0 dorzolamide-timolol (PF) 2-0.5 % Dropperette OPHTHALMIC (EYE) RF: 0 cyanocobalamin (vitamin B-12) 2,500 mcg Tablet 2,500 mcg RF: 0 Referrals: Eduardo Boateng MD [Primary Care Provider] -
[2021-03-31 20:39] VITALS: BP 141/97; PULSE 67; RESP 20; O2SAT 100
== END 2021-03-31 20:47 | disposition home or self-care (01) ==
PROVIDERS: Emergency Provider Emergency Medicine; PCP Internal Medicine
DX: I82.502 Chronic embolism and thrombosis of unspecified deep veins of left lower extremity (principal); Z79.01 Long term (current) use of anticoagulants
CPT/HCPCS: 93971; 99283

== ENCOUNTER → 2021-08-17 15:45 | Outpatient (CLI) | payer MEDICARE, OTHER, SELFPAY ==
--- NOTE | 2021-08-17 | DI.MG.S_ITS ---
BILATERAL DIGITAL SCREENING MAMMOGRAM 3D/2D WITH CAD: 08/17/2021 CLINICAL: Routine screening. Comparison is made to exams dated: 06/12/2020 mammogram - [facility] and 03/29/2016 mammogram - outside location. There are scattered fibroglandular elements in both breasts. Current study was also evaluated with a Computer Aided Detection (CAD) system. No significant masses, calcifications, or other findings are seen in either breast. There has been no significant interval change. IMPRESSION: NEGATIVE There is no mammographic evidence of malignancy. A 1 year screening mammogram is recommended. This exam was interpreted at Station ID: [id number]. NOTE: For mammograms, a report in lay terms will be sent to the patient. Approximately 15% of breast malignancies will not be visualized mammographically. In the management of a palpable breast mass, a negative mammogram must not discourage biopsy of a clinically suspicious lesion. Electronically Signed By: Dg corral/akbar:08/18/2021 08:38:48 letter sent: Normal Exam ACR BI-RADS Category 1: Negative [id number]
== END ==
PROVIDERS: PCP Internal Medicine; Referring Provider Internal Medicine; Visit Provider Internal Medicine
DX: Z12.31 Encounter for screening mammogram for malignant neoplasm of breast (principal)
CPT/HCPCS: 77063; 77067

== ENCOUNTER → 2021-10-27 08:13 | Outpatient (CLI) | payer MEDICARE, OTHER, SELFPAY ==
[2021-10-27 09:56] LABS: Add Manual Diff / Slide Review NO; Basophils Absolute Auto 0 /uL (0-100); Basophils Percent Auto 0.8 % (0-2); Eosinophils Absolute Auto 300 /uL (0-450); Eosinophils Percent Auto 5.7 % (2-4); Hematocrit 39.2 % (36-46); Lymphocytes Absolute Auto 1100 /uL (1100-4500); Lymphocytes Percent Auto 19.7 % (25-40); Mean Corpuscular HGB Conc 33.2 % (30-36); Mean Corpuscular Hemoglobin 28.6 PG (26-34); Mean Corpuscular Volume 85.9 fL (80-100); Monocytes Absolute Auto 500 /uL (0-900); Monocytes Percent Auto 8.4 % (3-14); Neutrophils Absolute Auto 3500 /uL (1500-7000); Neutrophils Percent Auto 65.4 % (50-75); Platelet Count 200 X10^3/uL (150-400); Red Blood Cell Count 4.57 X10^6/uL (4.0-5.2); White Blood Cell Count 5.4 X10^3/uL (4.5-11.0)
[2021-10-27 10:07] LABS: BUN Creatinine Ratio 16.5 (6-22); Blood Urea Nitrogen 16 mg/dL (7-17); Calcium 9.3 mg/dL (8.4-10.2); Carbon Dioxide 28 mmol/L (22-32); Chloride 104 mmol/L (98-107); Estimated Glomerular Filt Rate 59 mL/min (>60); Glucose 110 mg/dL (80-110); HEMOLYSIS < 15 (0-50); Potassium 4.3 mmol/L (3.4-5.1); Sodium 140 mmol/L (137-145)
[2021-10-27 11:11] LABS: Appearance Urine UA CLEAR; Bilirubin Urine UA NEGATIVE (NEGATIVE); Color Urine UA YELLOW; Glucose Urine UA NEGATIVE (Negative); Ketones Urine UA NEGATIVE (NEGATIVE); Leukocyte Esterase Urine UA TRACE (NEGATIVE); Nitrite Urine UA NEGATIVE (Negative); Occult Blood Urine UA NEGATIVE (Negative); Protein Urine UA NEGATIVE (Negative); Specific Gravity Urine UA <=1.005 (1.000-1.035); Urobilinogen Urine UA 0.2 E.U./dL (0.2)
[2021-10-27 11:21] LABS: Bacteria Urine Moderate (10-30); Culture Indicated Urine Specimen Cultured; RBC Urine 0-1/HPF (0-5/HPF); Squamous Epithelial Cell Urine 0-1 /HPF (0-5/HPF); WBC Urine 1-5/HPF (0-5/HPF)
== END ==
PROVIDERS: PCP Internal Medicine; Referring Provider Orthopaedic Surgery; Visit Provider Orthopaedic Surgery
DX: Z01.818 Encounter for other preprocedural examination (principal); R73.9 Hyperglycemia, unspecified; N39.0 Urinary tract infection, site not specified; Z01.812 Encounter for preprocedural laboratory examination
CPT/HCPCS: 36415; 80048; 81001; 83036; 85025; 87086; 93005

== ENCOUNTER → 2021-11-07 12:56 | Outpatient (CLI) | payer MEDICARE, OTHER, SELFPAY ==
[2021-11-07 13:36] LABS: COVID19 -Nasal RAPID Negative (Negative)
== END ==
PROVIDERS: PCP Internal Medicine; Referring Provider Orthopaedic Surgery; Visit Provider Orthopaedic Surgery
DX: Z20.822 Contact with and (suspected) exposure to COVID-19 (principal)
CPT/HCPCS: 87635; C9803

== ENCOUNTER 2021-11-11 15:30 | Observation (INO) | payer MEDICARE, OTHER, SELFPAY ==
[2021-11-01 07:44] VITALS: BMI 41.8
[2021-11-10] VITALS (14 sets, daily range): BP systolic 111–172; BP diastolic 43–92; PULSE 47–61; RESP 12–18; TEMP 36.1–37.1; O2SAT 94–98; BMI 42.5
[2021-11-10] MEDS: CEFAZOLIN 2 GM/20 ML SYRINGE IV ×2 (01:30→21:05)
--- NOTE | 2021-11-10 06:52 | DI.RAD.S_ITS ---
PROCEDURE: XR KNEE LT 1TO2V INDICATIONS: left TKA TECHNIQUE: 2 views of the knee acquired. COMPARISON: [facility], CR, XR KNEE LT 3V, 03/07/2018, 7:51. FINDINGS: Bones: Patient is status post knee joint arthroplasty. Hardware components are in expected positions. Visualized bony structures are intact. Soft tissues: Overlying postoperative changes are noted. IMPRESSION: Status post left total knee arthroplasty with expected postoperative findings. Dictated by: Dg Quintero M.D. on 11/10/2021 at 14:31 Approved by: Dg Quintero M.D. on 11/10/2021 at 14:35
[2021-11-10] MEDS: ACETAMINOPHEN 325 MG TABLET 975 MG PO (08:48)
[2021-11-10] MEDS: LACTATED RINGERS 1,000 ML 42 ML IV (08:50)
[2021-11-10] MEDS: VANCOMYCIN 1,000 MG/200 ML PIGGYBACK 200 MG IV (10:14)
--- NOTE | 2021-11-10 11:04 | PM.PREOP ---
Pre-operative Note COVID-19 COVID-19 status: Negative Interval Note History & Physical reviewed/Exam performed by Physician: Yes Changes to H&P: No
--- NOTE | 2021-11-10 11:05 | P.OP_ITS ---
Operative Date/Time/Diagnoses Date of procedure: 11/10/21 Time of procedure: 11:30 Pre-op diagnosis: left knee OA Post-op diagnosis: same Procedure & Clinicians Procedure: Left total knee arthroplasty Same procedure as scheduled: Yes Indications: The patient has had progressively worsening left knee pain with radiographic changes consistent with arthritis. Non-operative management has failed and the patient has requested total knee replacement. The risks, benefits and alternatives to surgery were discussed with the patient prior to proceeding. Risks discussed included, but were not limited to, failure to relieve pain, stiffness, infection, nerve damage, deep venous thrombosis, pulmonary embolism, stroke, coma, heart attack, permanent paralysis and , as well as the potential need for eventual revision of the prosthetic. Surgeon: Linda Molina Charger Operator: Julee Anderson Anesthesia Type: General and Spinal Operative Notes Findings: Severe left knee OA, acceptable stability Closure Type: primary Specimen(s): none sent Prosthetic devices, grafts, tissues, transplants, or devices: [facility] 2 size 5 femur, size 3 tibia, +9 poly, 35 x 7.5 mm patella Applied: drain(s) Estimated Blood Loss (mL): 250 Blood products transfused: none Tourniquet time (min): 94 Procedure in detail: The patient was seen in the pre-operative area, where the patient identified the left knee as the operative site and this was marked with my initials. The patient received pre-operative antibiotics, and was taken to the operating room and placed on the operative table in the supine position. After satisfactory anesthesia, a registered phlebotomist part time out was performed. The left leg was encircled with a tourniquet about the proximal thigh, and the leg was prepared from the toes to the tourniquet with ChloroPrep in the usual fashion and draped through sterile drapes. The leg was elevated and exsanguinated with Eschmark bandage and the tourniquet inflated to [250] mmHg pressure. The knee was approached through an approximately 18 cm incision centered over the patella and carried into the knee through a medial parapatellar arthrotomy. A portion of the medial and lateral meniscus was resected. Soft tissue was carefully mobilized around the patella the patella was measured with a caliper. Bone was resected from the patella and the patellar height was reconstituted with up an appropriate sized patellar component. A cover was then placed on the patella. A small amount of additional medial and lateral meniscus was resected. The distal femur was cut at 5?. A [+2] cut was used. It looked like an appropriate distal femoral cut and the cut was made without difficulty. An extramedullary guide was used for the tibial cut. 10 mm was resected off the least affected side.The tibia was prepared. The rotation was assessed. The patient was placed in extension residual medial and lateral meniscus as well as any residual bone was carefully resected. [2 mm] additional tibia was resected. Hemostasis was achieved especially posteriorly. Additional local was injected into the posterior capsule. The extension gap was assessed and additional releases for gap balancing were performed as necessary. It was checked with the gap chief lifestyle officer. The femoral component was trial was placed and the notch was finished. The rotation was assessed and the appropriate size femoral guide was placed on the distal femur and finishing cuts were made. There was no evidence of notching. The anterior, posterior and chamfer cuts were then made. The posterior osteophytes and soft tissues were then removed. The posterior capsule was injected with part of a mixture of 60 ml 0.25% Marcaine mixed with 20 ml Exparel for post operative pain control. The remainder of this mixture was injected into the capsule and subcutaneous tissues during cement curing. The tibial and femoral components were then placed and the knee placed through a range of motion. Range of motion was [0-130], with good stability throughout the range. The trials were then removed, and the tibia was finished. The bone was prepared with pulsatile lavage, and dried with a sponge. Cement was applied and the final prosthetics placed. Excess cement was removed during and after cement curing. A brief Betadine soak was performed. After confirming there was no extruded cement posteriorly, the final tibial insert was placed. The knee was copiously irrigated and the tourniquet deflated. Hemostasis was obtained with the [Aquamantys system]. A drain was placed and brought out superolaterally. The capsule was closed with interrupted nonabsorbable suture. The subcutaneous layer was closed with barbed sutures, and the skin with a running 3-0 V-Lock suture and Surgical glue. A soledad dressing was applied and the patient was taken to recovery having tolerated the procedure well. Complications: none Post-operative Condition: stable Disposition: Acute Care Plan for aftercare: The patient will be maintained on a standard total knee replacement protocol with weight bearing as tolerated. The patient will receive Eliquis to which she was taking previously due to a history of a DVT on the left leg and sequential compression devices for DVT prophylaxis. We will place her on her previous dose of Eliquis to. She has some at home. The patient will be discharged home when safe for the home environment.
--- NOTE | 2021-11-10 11:53 | SUR.OPER ---
Supine on padded OR bed. Pillow under head, arms secured on padded armboards <90 degree abduction. Safety belt across torso. Non-operative leg secured with tape over blanket over lower leg. Operative leg secured in DeMayo/Refugio/Nathe positioner. Foam padded brace at thigh of operative leg.
[2021-11-10] MEDS: BUPIVACAINE LIPOSOME 266 MG/20 ML VIAL INJ (12:03)
[2021-11-10] MEDS: BUPIVACAINE 0.25% (PF) 60 ML, EPINEPHrine 0.3 MG INJ (12:04)
[2021-11-10] MEDS: SODIUM CHLORIDE IRRIG SOLUTION 250 ML, POVIDONE-IODINE SPONGE STICKS 1 APPLIC IRR (13:14)
[2021-11-10] MEDS: LACTATED RINGERS 1,000 ML 100 ML IV (15:16)
[2021-11-10] MEDS: ONDANSETRON 4 MG/2 ML INJ IV (15:59)
--- NOTE | 2021-11-10 16:13 | PC.NURSE ---
Pt arrived from PACU @ 1500 Alert/drowsy SpO2 96% RA Tadeo wrap, GM dsg and Hemavac to to left surgical knee CDI. Pt c/o nausea, med w/ zofran at 1600 w/ good relief. IVF LR infusing @ 100cc/hr into LFA via pump w/o incidence. Oriented to room & call system Pt has 2-3+ pitting edema to bilat. feet/toes. States that she has had this prior to surgery and not new, Call light w/in reach, bed alarm on for pt safety. Continue w/plan of care.
--- NOTE | 2021-11-10 16:15 | PT.IPTN ---
Current Diagnoses Unilateral primary osteoarthritis, left knee (11/10/21) Surgery Performed Operation Date: 11/10/21 10:45 Actual Procedures p Total Knee Arthroplasty(Left) - Linda Molina MD Physical Therapy Treatment Note M3 PT-IP Subjective Start: 11/10/21 16:20 Freq: NEEDED Status: Active Protocol: Document 11/10/21 16:10 AB (Rec: 11/10/21 16:23 AB [id number]) Subjective Physical Therapy Visit Type Type Administrative Note Notes checked on pt and pt is sleepy and stated that she is tired and not ready to do PT but agreed to answer questions. provided PLOF and home setup. will f/u tomorrow.
[2021-11-10] MEDS: LATANOPROST 0.005% OPHTH 2.5 ML 1 DROPS EYE-BOTH (20:55)
[2021-11-10] MEDS: IBUPROFEN 400 MG TABLET PO (20:57)
[2021-11-10] MEDS: ASPIRIN EC 81 MG TABLET PO (20:57)
[2021-11-10] MEDS: DOCUSATE 100 MG CAPSULE PO (20:57)
[2021-11-10] MEDS: OXYCODONE IR 5 MG TABLET PO (20:58)
[2021-11-10] MEDS: APIXABAN 5 MG TABLET PO (20:58)
[2021-11-10] MEDS: ATORVASTATIN 20 MG TABLET 80 MG PO (20:58)
[2021-11-10] MEDS: HYDRALAZINE 25 MG TABLET PO (20:58)
[2021-11-11] VITALS: BP 120/53; PULSE 55; RESP 18; TEMP 36.5; O2SAT 95
[2021-11-11] MEDS: ACETAMINOPHEN 325 MG TABLET 650 MG PO ×4 (00:13→18:21)
[2021-11-11] MEDS: IBUPROFEN 400 MG TABLET PO ×5 (00:14→20:04)
[2021-11-11 04:05] VITALS: BP 142/54; PULSE 65; RESP 18; TEMP 36.6; O2SAT 96
[2021-11-11 04:40] LABS: Hematocrit 30.8 % (36-46); Hemoglobin 10.3 g/dL (12.0-16.0)
[2021-11-11] MEDS: OXYCODONE IR 5 MG TABLET PO (04:42)
[2021-11-11] MEDS: CEFAZOLIN 2 GM/20 ML SYRINGE IV (04:43)
[2021-11-11] MEDS: SODIUM CHLORIDE 0.9% FLUSH 10 ML IV ×3 (05:45→20:04)
[2021-11-11] MEDS: LEVOTHYROXINE 137 MCG TABLET PO (06:21)
[2021-11-11 08:00] VITALS: BP 126/57; BP 135/44; PULSE 58; PULSE 70; RESP 18; TEMP 36.2; TEMP 36.5; O2SAT 97
--- NOTE | 2021-11-11 08:01 | PC.NURSE ---
Addendum entered by Ellen Barbour R.N. 11/11/21 13:46: Patient will not discharge today, she will work with physical therapy again tomorrow morning and then go home. Her blood pressure dyastolic is also in the 30s and 40s, so bp meds and lasix held this am. Addendum entered by Ellen Barbour R.N. 11/11/21 13:17: Paulchristopher hemovac taken out and she tolerated this well. Pressure dressing applied. Patient is working with physical therapy now. Original Note: Assess-Patient is alert and oriented x3, she has a soledad dressing to her left knee with hemovac putting out a small amount of blood. Patients bs are ctax3, she does have 2+edema to both of her legs, l>R. She states that she has been up to the commode twice and is moving decent. She still needs to work with physical therapy. Eating breakfast now, and patient to receive her medications soon.
[2021-11-11] MEDS: APIXABAN 5 MG TABLET PO ×2 (08:35→20:04)
[2021-11-11] MEDS: DOCUSATE 100 MG CAPSULE PO ×2 (08:35→20:04)
[2021-11-11] MEDS: CHOLECALCIFEROL (VITAMIN D3) 5,000 UNIT TABLET 5000 UNIT PO (08:35)
[2021-11-11] MEDS: ASPIRIN EC 81 MG TABLET PO (08:35)
[2021-11-11] MEDS: DORZOLAMIDE 2% OPHTH 10 ML 1 DROPS EYE-BOTH (08:36)
[2021-11-11] MEDS: CYANOCOBALAMIN (VITAMIN B-12) 500 MCG TABLET 2500 MCG PO (08:36)
--- NOTE | 2021-11-11 10:00 | PT.IIE ---
Current Diagnoses Unilateral primary osteoarthritis, left knee (11/10/21) Surgery Performed Operation Date: 11/10/21 10:45 Actual Procedures p Total Knee Arthroplasty(Left) - Linda Molina MD Surgical History (Last Reviewed 11/11/21 @ 10:54 by Julee Anderson PA-C) History of knee replacement (2013) Hx of blepharoplasty Hx of breast biopsy (2006) Hx of cataract surgery (2013) Hx of cholecystectomy (11/2016) Hx of coronary artery bypass graft (1998) Hx of dilation and curettage Hx of hysterectomy (1996) Hx of rotator cuff surgery Hx of tubal ligation Medical History (Last Reviewed 11/11/21 @ 10:54 by Julee Anderson PA-C) Arthritis Bilateral lower extremity edema Borderline diabetes Chronic back pain Coronary artery disease (1998) Hearing impaired History of arm fracture Hx of diastolic dysfunction Hypertension Hypothyroidism (Unknown) Intermittent chest pain Irritable bowel disease Left leg DVT (11/14/20) Mumps Osteoarthritis Osteoporosis Pneumonia Right arm fracture Right-sided chest pain Physical Therapy Inpatient Evaluation/Re-Eval M1 PT/OT-IP Prior Functional Status Start: 11/10/21 16:20 Freq: NEEDED Status: Active Protocol: Document 11/11/21 10:00 AB (Rec: 11/11/21 12:20 AB [email or web address]) Medical Review Prior Functional Status Medical History Reviewed Yes Communication able to make needs known Mobility and Gait pt stated that she is modified independent with all mobilities and ambulation using SPC indoors and outdoors but occasionally without AD indoors Social History Household Members children Living Arrangements Apartment/Condo Number of Floors (Floors) One Floor Number of Stairs To Enter/Railing? pt lives in a [id number] suite next to her daughter's house 1 step to enter Home Environment High Toilet,Walk in Shower Home Equipment Front Wheel Walker,Straight Cane,Shower Seat with Backrest ,Hand Held Shower M2 PT-IP Current Condition Start: 11/10/21 16:20 Freq: NEEDED Status: Active Protocol: Document 11/11/21 10:00 AB (Rec: 11/11/21 12:20 AB [email or web address]) Physical Therapy Current Condition Current Condition Evaluation Date 11/11/21 Treatment Diagnosis s/p L TKA; difficulty in walking Onset Date 11/10/21 M3 PT-IP Subjective Start: 11/10/21 16:20 Freq: NEEDED Status: Active Protocol: Document 11/11/21 10:00 AB (Rec: 11/11/21 12:20 [email or web address]) Subjective Physical Therapy Visit Type Type Initial Evaluation Visit Start Time 10:00 Visit Stop Time 10:35 Total Visit Minutes 35 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 0 Physical Therapy Visit Comments Patient Comments agreeable to do PT Therapy Pain Assessment Pain When Pain Assessed At Rest Pain Present Pain Present Pain Reported Location Left Knee Intensity 5 Scale Used Numeric (0 - 10) Pain Management Techniques Apply Cold,Modification of Treatment,Re-positioning, Timing of Activity with Medications M4 PT-IP Mobility and Gait Start: 11/10/21 16:20 Freq: NEEDED Status: Active Protocol: Document 11/11/21 10:00 AB (Rec: 11/11/21 12:20 [email or web address]) PT-Bed Mobility Assessment Supine to Sit Supine to Sit Standby Assistance Sit to Supine Sit to Supine Standby Assistance PT-Transfer Assessment Sit to and From Stand Sit to and from Stand Contact Guard Assistance,1 Person Assistance,Use of Upper Extremities Equipment Transfer Assistive Device Gait Belt,Front Wheeled Walker Orthotic/Prosthetic Devices or Brace: No Transfers Transfer Destination Toilet Transfer Technique ambulated Transfer Ability Level of Assist Minimal Assistance,1 Person Assistance,Use of Upper Extremities Comments Mobility Comments BP: 124/51 completed supine to sit SBA. able to sit on EOB SBA. BP in sittin/55. completed sit to stand CGA and ambulated to the toilet using fWW min A ~ 20 ft. no c/o dizziness. completed sit to stand CGA and able to complete hygiene care without assistance. ambulated towards the sink using FWW CGA and able to maintain standing balance using FWW for support while completing handwashing. ambulated to the chair using FWW ~ 8 ft. BP checked: 146/ 60. pt refused further activity. (+) SOB. O2 sat: 97% DE 70. positioned pt on the chair. call light and table placed within reach. Gait Assessment Gait Gait Assistance Required: Minimum Assistance Distance (Feet) 20 Able to Maintain Weight Bearing Status Yes During Gait Assistive Devices Assistive Device Gait Belt,Front Wheeled Walker Orthotic/Prosthetic Devices or Brace: No Gait Deviations General Gait Pattern Antalgic,Decreased Stride Length,Decreased Feet Clearance Factors Limiting Gait Function Factors Limiting Gait Function Decreased Activity Tolerance, Decreased Strength,Limited Range of Motion,Pain,Poor Balance,Poor Safety Awareness PT-Balance Assessment Sitting Balance and Reactions Static Sitting Balance Ability Good Dynamic Sitting Balance Ability Good Standing Balance and Reactions Static Standing Balance Ability Fair Dynamic Standing Balance Ability Fair Device Used FWW M5 PT-IP Objective Assessments Start: 11/10/21 16:20 Freq: NEEDED Status: Active Protocol: Document 11/11/21 10:00 AB (Rec: 11/11/21 12:20 [email or web address]) Orientation Orientation/Cognition Level of Alertness Alert Orientation Name,Place,Situation Language Function Ability No Deficits Noted Safety Awareness Decreased Safety Awareness Memory Description No Deficits Noted Gross Range of Motion Lower Extremity ROM Impairments L knee flexion: ~ 50 deg Strength Lower Extremity Strength Assessment Left Impaired Hip 4-/5 Knee 4-/5 Coordination Assessment Gross Coordination Gross Coordination WNL Sensation Assessment Sensation Gross Sensation WNL Muscle Tone Muscle Tone WNL Yes M6 PT-IP Treatment Start: 11/10/21 16:20 Freq: NEEDED Status: Active Protocol: Document 11/11/21 10:00 AB ([email or web address] Therapy Treatment Education Education Provided Precautions,Weight Bearing Status,Post-Op Packet,Safety M7 PT-IP Assessment and Plan Start: 11/10/21 16:20 Freq: NEEDED Status: Active Protocol: Document 11/11/21 10:00 AB (Rec: 11/11/21 12:20 [email or web address]) PT Summary Assessment and Plan Potential Rehabilitation Potential Good Status of Condition at Evaluation Stable Summary Impairments Pain,ROM,Strength,Balance, Coordination,Sensation,Tone, Cognition,Bed Mobility, Transfers,Gait,Activity Tolerance Assessment Summary pt requiring min A with mobility using FWW but has decrease activity tolerance affecting mobility independence. will continue to assess progress. will conducted caregiver training when appropriate. pt stated that she does not want to bother her daughter to assist her but educated on safety and needing to do training so that her daughter will know how to assist her if needed. will continue to assess progress. Goals Bed Mobility Goal Independent Transfer Goal Independent,Front Wheeled Walker Gait Goal Independent,Front Wheel Walker Gait Distance 200 Other Goals up/down 1 step using FWW SBA Days to Meet Goals 5 Frequency of Treatment Frequency Of Treatment Twice a Day Treatment Plan Physical Therapy Treatment Plan Bed Mobility Training,Transfer Training,Gait Training, Therapeutic Exercise,Balance Retraining,Post Op Education, Discharge Planning,Hot or Cold Pack,Neuromuscular Re-ed, Coordination Retraining,Manual Therapy Weight Bearing Status Weight Bearing Status Weight Bear as Tolerated Allowed Weight Bearing Amount (enter % LLE WBAT or #) (%) Recommendations To Nursing Amount of Assist Needed 1 Person Assist Discharge Recommendations PT Discharge Recommendations Home with Assistance,Home Health Transportation Needs at Discharge Private Vehicle
[2021-11-11] MEDS: polyethylene glycoL 3350 17 GM POWD.PACK PO (10:22)
--- NOTE | 2021-11-11 10:51 | P.DS_ITS ---
History of Present Illness History of Present Illness Date Patient Seen: 11/11/21 Time Patient Seen: 10:52 Chief complaint: OPB Narrative: Patient is complaining of moderate left knee pain. She denies any new numbness or tingling since surgery. She has not worked with physical therapy yet. She is on Eliquis and aspirin 81 mg daily baseline for history of a DVT. Her main concern is her constipation. Overall she is feeling pretty well and is hopeful to be discharged home today. Discharge Providers Provider Discharge Date: 11/11/21 Primary care physician: Eduardo Boateng MD Consults: 11/10/21 06:52 Consult to Anesthesiology Routine Comment: Consulting Provider: Anesthesiologist Reason for consultation: Regional block for post operative pain control 11/10/21 14:45 Consult to Discharge Planning Routine Comment: Consult to Physical Therapy Evaluate & Treat Comment: Physician Instructions: postop TKA protocol Consult to Respiratory Therapy Evaluate & Treat Comment: Physician Instructions: Evaluate and treat Discharge provider: Julee Anderson PA-C Summary Hospital Course Discharge Diagnosis: Left knee OA Hospital Course: Operative Date/Time/Diagnoses Date of procedure: 11/10/21 Time of procedure: 11:30 Procedure & Clinicians Procedure: Left total knee arthroplasty Same procedure as scheduled: Yes Indications: The patient has had progressively worsening left knee pain with radiographic changes consistent with arthritis. Non-operative management has failed and the patient has requested total knee replacement. The risks, benefits and alternatives to surgery were discussed with the patient prior to proceeding. Risks discussed included, but were not limited to, failure to relieve pain, stiffness, infection, nerve damage, deep venous thrombosis, pulmonary embolism, stroke, coma, heart attack, permanent paralysis and , as well as the potential need for eventual revision of the prosthetic. Surgeon: Linda Molina Nut Packer: Julee Anderson Anesthesia Type: General and Spinal Operative Notes Findings: Severe left knee OA, acceptable stability Closure Type: primary Specimen(s): none sent Prosthetic devices, grafts, tissues, transplants, or devices: [employer] BCS 2 size 5 femur, size 3 tibia, +9 poly, 35 x 7.5 mm patella Applied: drain(s) Estimated Blood Loss (mL): 250 Blood products transfused: none Tourniquet time (min): 94 Status at Discharge Cognitive/behavioral status at discharge: at baseline, oriented Functional status at discharge: uses cane/walker Overall status at discharge: patient is progressing back to baseline Exam Vital Signs (past 8 hours): - 11/11/21 04:05 11/11/21 08:00 Temperature 97.9 F 97.7 F Pulse Rate 65 58 L Respiratory Rate 18 18 Blood Pressure 142/54 H 135/44 L Pulse Oximetry 96 97 Oxygen Flow Rate 0 Oxygen Delivery Method Room Air Oxygen Flow Rate 0 Narrative Exam Narrative: Pleasant 81-year-old female, resting comfortably in bed, no acute distress. Dressing is clean, dry, intact. No surrounding erythema or induration. Bilateral lower extremity: Motor functions are grossly intact, sensation is grossly intact to light touch, calves are soft and nontender to palpation. She has 2+ distal edema in bilateral lower extremities, patient notes this is her baseline. Objective Labs Result Diagrams: 11/11/21 04:27 Labs: Laboratory Results - last 24 hr 11/11/21 04:27 Hgb 10.3 L Hct 30.8 L PFSH Medical History Arthritis Bilateral lower extremity edema Borderline diabetes Chronic back pain Coronary artery disease (1998) Hearing impaired History of arm fracture Hx of diastolic dysfunction Hypertension Hypothyroidism (Unknown) Intermittent chest pain Irritable bowel disease Left leg DVT (11/14/20) Mumps Osteoarthritis Osteoporosis Pneumonia Right arm fracture Right-sided chest pain Surgical History History of knee replacement (2013) Hx of blepharoplasty Hx of breast biopsy (2006) Hx of cataract surgery (2013) Hx of cholecystectomy (11/2016) Hx of coronary artery bypass graft (1998) Hx of dilation and curettage Hx of hysterectomy (1996) Hx of rotator cuff surgery Hx of tubal ligation Family History Child Heart disease Mother Diabetes mellitus Father Heart disease Social History household members: children Smoking Status: Never smoker second hand exposure: No alcohol intake: never substance use type: does not use Discharge Assessment & Plan Assessment and Plan Assessment: -stable status post left total knee arthroplasty -post hemorrhagic anemia, asymptomatic -obesity Plan of Treatment: -mobilize with PT. Weightbearing as tolerated with front wheel walker -continue with Eliquis and aspirin 81 mg daily for DVT prophylaxis -multimodal pain management: We will add tramadol for [id number] pain, continue with Tylenol and oxy 5 mg as needed -continue to monitor for symptoms of anemia -DC home today once cleared by PT Discharge Plan Discharge Plan Patient Disposition: Home Discharge orders & Medications Discharge Orders: Discharge (Order); Ordered 11/11/21 Ordered By: Julee Anderson Prescriptions: New acetaminophen 500 mg capsule 500 mg PO Q4H MDD Max 3000 mg per day PRN (Reason: fever or pain) Qty: 90 0RF Eliquis 5 mg Tablet 5 mg PO BID Qty: 60 0RF Rx Instructions: Prevent blood clots docusate sodium 100 mg Capsule 100 mg PO BID PRN (Reason: Constipation from narcotic pain meds) Qty: 30 0RF oxycodone 5 mg Tablet 5 mg PO Q3HR PRN (Reason: Pain, Moderate (4-6)) Qty: 30 0RF polyethylene glycol 3350 17 gram Powder In Packet 17 g PO DAILY PRN (Reason: Constipation) Qty: 30 0RF tramadol 50 mg Tablet 50 mg PO Q4-6H PRN (Reason: Pain, mild-Moderate) Qty: 42 0RF Continued (DME) Disabled Mu Permit Qty: 1 0RF Dose Instruction: As directed Rx Instructions: As directed atorvastatin 40 MG tablet 80 mg PO HS Qty: 0 aspirin 81 MG tablet,delayed release (DR/EC) 81 mg PO QDAY Qty: 0 metoprolol succinate [Toprol XL] 50 MG tablet extended release 24 hr 100 mg PO QPM Qty: 0 irbesartan 300 mg tablet 300 mg PO DAILY Qty: 90 0RF Label Comments: Takes at bedtime hydralazine 50 mg Tablet 25 mg PO BID coenzyme Q10 [CoQ-10] 100 mg Capsule 200 mg PO DAILY cholecalciferol (vitamin D3) [Vitamin D3] 125 mcg (5,000 unit) Tablet 125 mcg PO DAILY dorzolamide-timolol (PF) 2-0.5 % Dropperette 1 drp EYE-BOTH QAM cyanocobalamin (vitamin B-12) 2,500 mcg Tablet 2,500 mcg PO DAILY levothyroxine 125 mcg capsule 137 mcg PO DAILY Rx Instructions: Take 1 tablet by mouth each morning on an empty stomach 30 minutes prior to breakfast latanoprost 0.005 % Drops 1 drp OPHTHALMIC (EYE) BEDTIME furosemide 20 mg Tablet 20 mg PO QAM Discontinued acetaminophen 500 mg Capsule 500 mg PO PRN PRN (Reason: Pain (Scale Score 1-3)) Follow up/Referrals: Eduardo Boateng MD [Primary Care Provider] - Linda Molina MD [Physician] - (10-14 days for postoperative visit) Diet/Activity/Treatments Diet: Diet as Tolerated Other treatments: Medications: -Eliquis and Aspirin 81mg daily to prevent blood clots. -OTC Tylenol 500 mg 1 tablet every 4 hours as needed for pain/fever. Max 6 tablets per day. -Tramadol 50mg 1 tab every 4 hours as needed for mild-moderate pain. Max 8 tabs per day. -Oxycodone 5 mg take 1-2 tablets every 4 hours as needed for moderate-severe pain (narcotic pain medication). -As needed medications: -Ducolax and /or MiraLax as needed for constipation from narcotic pain medications. Can use magnesium citrate for severe constipation. -Pepcid AC as needed for stomach upset (usually from aspirin or ibuprofen). Dressing/Wound care: -Remove the Tadeo wrap 48 hours after surgery. Dressing/Wound care: -Keep Grabiel dressing in place until postoperative follow-up office visit. The Grabiel battery/pump should last for 7 days. Once that stops, please cut off hose at base of dressing and cover with a bandaid/part of a dressing from Grabiel package. Monitor can be thrown away and recycle the batteries. Leave the remaining dressing in place. -Okay to shower. Keep wound out of direct water stream. No soaking or submerging until all the scabs fall off (approximately 4-6 weeks). -No lotions, ointments, or scar creams directly to the incision until the wound is healed (4-6 weeks), -Please call the office if dressing becomes wet, soiled, or saturated. Activities: -Weight-bearing as tolerated. Use front wheeled walker, and progress to cane when safe. -Continue with home exercises as directed by your physical therapist. -Elevate ?toes above the nose if you have significant swelling in your lower leg. (A wedge pillow is easiest.) -Ice your incision as needed for pain/inflammation/swelling. Protect your skin with a folded pillowcase. -Incentive Spirometer (breathing device from hospital): 5-10xs every hour while awake for the first 1-2 weeks. Follow-up: -Follow-up with your surgeon or PA in the office in 10-14 days after surgery. -Follow-up with your surgeon 6 weeks postoperatively. Call the office if you have chest pain, shortness of breath, significant swelling that will not resolve with elevating, fever over 101?, significantly worsening pain. [facility]: [phone] Skin/Wound/Dressing Care Report to your healthcare provider any signs of infection, such as:: chills, fever, night sweats, unusual drainage and unusual redness Visit Report/Discharge Packet Instructions: DI for Knee Replacement Stand Alone Forms: Surgery Discharge Discharge Data Primary Care Provider: Eduardo Boateng Attending Provider: Linda Molina VTE Deep Vein Thrombosis/Pulmonary Embolism Present on Admission: No
[2021-11-11 12:00] VITALS: BP 127/40; PULSE 88; RESP 16; TEMP 36.6; O2SAT 98
--- NOTE | 2021-11-11 12:55 | PT.IPTN ---
Current Diagnoses Unilateral primary osteoarthritis, left knee (11/10/21) Surgery Performed Operation Date: 11/10/21 10:45 Actual Procedures p Total Knee Arthroplasty(Left) - Linda Molina MD Physical Therapy Treatment Note M2 PT-IP Current Condition Start: 11/10/21 16:20 Freq: NEEDED Status: Active Protocol: Document 11/11/21 10:00 AB (Rec: 11/11/21 12:20 AB [email or web address]) Physical Therapy Current Condition Current Condition Evaluation Date 11/11/21 Treatment Diagnosis s/p L TKA; difficulty in walking Onset Date 11/10/21 M3 PT-IP Subjective Start: 11/10/21 16:20 Freq: NEEDED Status: Active Protocol: Document 11/11/21 12:55 AB (Rec: 11/11/21 13:54 AB [email or web address]) Subjective Physical Therapy Visit Type Type Treatment Note Visit Start Time 12:55 Visit Stop Time 13:42 Total Visit Minutes 47 Number of ROUTER OPERATOR PIN Visits 0 Physical Therapy Visit Comments Patient Comments agreeable to do PT Therapy Pain Assessment Pain When Pain Assessed At Rest Pain Present Pain Present Pain Reported Location Left Knee Intensity 4 Scale Used Numeric (0 - 10) Pain Management Techniques Apply Cold,Distraction, Elevation,Modification of Treatment,Re-positioning, Timing of Activity with Medications M4 PT-IP Mobility and Gait Start: 11/10/21 16:20 Freq: NEEDED Status: Active Protocol: Document 11/11/21 12:55 AB (Rec: 11/11/21 13:54 AB [email or web address]) PT-Bed Mobility Assessment Supine to Sit Supine to Sit Standby Assistance Sit to Supine Sit to Supine Standby Assistance PT-Transfer Assessment Sit to and From Stand Sit to and from Stand Contact Guard Assistance,1 Person Assistance Equipment Transfer Assistive Device Gait Belt,Front Wheeled Walker Orthotic/Prosthetic Devices or Brace: No Transfers Transfer Destination Bed,Chair Transfer Technique ambulated Transfer Ability Level of Assist Contact Guard Assistance,1 Person Assistance,Use of Upper Extremities Comments Mobility Comments pt sitting on the chair. daughter in room with pt. BP checked: 130/41. caregiver training conducted. educated daughter on how to use safety belt and how to assist pt. daughter was able to put safety belt on pt. assisted pt with sit to stand ambulation in room using FWW ~ 20 ft. pt sat on EOB. educated pt and daughter regarding stair climbing using FWW. daughter assisted pt with sit to stand ambulated to the platform step ~ 20 ft. completed up/down step using FWW initially with PT cueing and then repeated again with just pt and daughter and able to complete safely. pt ambulated back to the room using FWW ~ 30ft and sat on the chair. BP checked: 129/36 . bed mobility training conducted. pt completed sit to stand from chair CGA and ambulated to EOB ~ 20 ft using fWW CGA. completed sit to supine SBA using side of FWW to assist as rail. educated daughter on how to assist pt if pt needs assistance. pt ambulated back to the chair using FWW CGA. positioned pt on the chair. call light and table placed within reach. pt stated that she does not feel like she is ready to go home and wants to be able to do a BM first and is worried about her BP. informed nurse. Gait Assessment Gait Gait Assistance Required: Contact Guard Assist Distance (Feet) 30 Able to Maintain Weight Bearing Status Yes During Gait Assistive Devices Assistive Device Gait Belt,Front Wheeled Walker Orthotic/Prosthetic Devices or Brace: No Gait Deviations General Gait Pattern Antalgic,Decreased Stride Length,Decreased Feet Clearance,Step-to Gait Factors Limiting Gait Function Factors Limiting Gait Function Decreased Activity Tolerance, Decreased Strength,Limited Range of Motion,Pain,Poor Balance,Poor Safety Awareness, Respiratory Distress Stair Climbing Assessment Evaluation Level of Assist On Stairs Contact Guard Assistance Devices Stair Climbing Assistive Devices Front Wheel Walker Technique/Endurance Stair Climbing Direction Ascend and Descend Stair Climbing Technique Step to Step Number of Steps Climbed 1 Stair Climbing Set # Repetitions (reps) 2 M5 PT-IP Objective Assessments Start: 11/10/21 16:20 Freq: NEEDED Status: Active Protocol: Document 11/11/21 10:00 AB (Rec: 11/11/21 12:20 AB [email or web address]) Orientation Orientation/Cognition Level of Alertness Alert Orientation Name,Place,Situation Language Function Ability No Deficits Noted Safety Awareness Decreased Safety Awareness Memory Description No Deficits Noted Gross Range of Motion Lower Extremity ROM Impairments L knee flexion: ~ 50 deg Strength Lower Extremity Strength Assessment Left Impaired Hip 4-/5 Knee 4-/5 Coordination Assessment Gross Coordination Gross Coordination WNL Sensation Assessment Sensation Gross Sensation WNL Muscle Tone Muscle Tone WNL Yes M6 PT-IP Treatment Start: 06/09/22 16:20 Freq: NEEDED Status: Active Protocol: Document 11/11/21 12:55 AB (Rec: 11/11/21 13:54 AB [email or web address]) Physical Therapy Treatment Education Education Provided Safety M7 PT-IP Assessment and Plan Start: 11/10/21 16:20 Freq: NEEDED Status: Active Protocol: Document 11/11/21 12:55 AB (Rec: 11/11/21 13:54 AB [email or web address]) PT Summary Assessment and Plan Potential Rehabilitation Potential Good Summary Impairments Pain,ROM,Strength,Balance, Coordination,Sensation,Tone, Cognition,Bed Mobility, Transfers,Gait,Activity Tolerance Progress Towards Goals Slow Progress due to Activity Tolerance Assessment Summary caregiver training conducted and daughter was able to assist pt safely. pt is set up for outpt PT. pt may go home when medically stable. Goals Bed Mobility Goal Independent Transfer Goal Independent,Front Wheeled Walker Gait Goal Independent,Front Wheel Walker Gait Distance 200 Other Goals up/down 1 step using FWW SBA Days to Meet Goals 5 Frequency of Treatment Frequency Of Treatment Twice a Day Treatment Plan Physical Therapy Treatment Plan Bed Mobility Training,Transfer Training,Gait Training, Therapeutic Exercise,Balance Retraining,Post Op Education, Discharge Planning,Hot or Cold Pack,Neuromuscular Re-ed, Coordination Retraining,Manual Therapy Weight Bearing Status Weight Bearing Status Weight Bear as Tolerated Allowed Weight Bearing Amount (enter % LLE WBAT or #) (%) Recommendations To Nursing Amount of Assist Needed 1 Person Assist Discharge Recommendations PT Discharge Recommendations Home with Assistance,Home Health Transportation Needs at Discharge Private Vehicle
--- NOTE | 2021-11-11 14:18 | CM.DANOTE ---
Initial DCP Assessment Note Pt is an 81 yo female, resident of [place], now POD#1 from Total Knee Arthroplasty(Left) - Linda Molina MD PCP: Eduardo Boateng Payer: [employer] Reviewed chart, pt discussed in multidisciplinary rounds this morning. Therapy has cleared pt for return home w/family to assist and pt has planned for home, DC order from Ortho has already been initiated this morning. Met w/patient and dtr, introduced role. Patient eager to return home, No needs from DC planning team identified STEPHEN Friedman Discharge Planning/Care Management CM Discharge Assessment Start: 11/11/21 14:13 Freq: Status: Active Protocol: Document 11/11/21 14:13 RADHA (Rec: 11/11/21 14:18 RADHA [id number]) Discharge Planning Assessment Assigned Sap Portal Architect STEPHEN Herring DPOA/Assigned Designee Name Delaney Raymundo dtr Contact Information [phone] Advance Directives? Yes Advance Directives on File No History Provided By Patient,Medical Record Prior Living Arrangements Apartment/Condo Household Members children Type of transportation used prior to Relies on Others admit Independent with ADL's Yes: Requires some assist Is patient alert and oriented? Yes Needs Assistance With Meal Prep,Home Chores / Shopping Comment Patient lives in a mother-in- law suite with her next to her dtr and her Caregiver for Another No Patient/Family Preference OP PT Therapy Barriers to Discharge No Discharge Plan Home Transportation Arrangement Family Referrals Initiated None needed
[2021-11-11] MEDS: TRAMADOL 50 MG TABLET PO (16:35)
[2021-11-11 20:00] VITALS: BP 126/57; PULSE 70; RESP 18; TEMP 36.2; O2SAT 97
[2021-11-11] MEDS: HYDRALAZINE 25 MG TABLET PO (20:04)
[2021-11-11] MEDS: ATORVASTATIN 20 MG TABLET 80 MG PO (20:04)
[2021-11-11 20:38] VITALS: BP 132/62; PULSE 71
[2021-11-12] MEDS: IBUPROFEN 400 MG TABLET PO ×2 (05:00→08:29)
[2021-11-12] MEDS: LEVOTHYROXINE 137 MCG TABLET PO (06:08)
[2021-11-12] MEDS: ACETAMINOPHEN 325 MG TABLET 650 MG PO (06:08)
[2021-11-12 06:55] VITALS: BP 104/59; PULSE 65; RESP 18; TEMP 37; O2SAT 98
--- NOTE | 2021-11-12 07:46 | PC.NURSE ---
Assess- Patient is independent in her room. She has a soledad drain to her l.knee, hemovac taken out yesterday. CMS wnl and ppx2. Patient is up and waiting for breakfast. She will be discharging home today.
[2021-11-12] MEDS: DOCUSATE 100 MG CAPSULE PO (08:29)
[2021-11-12] MEDS: CHOLECALCIFEROL (VITAMIN D3) 5,000 UNIT TABLET 5000 UNIT PO (08:29)
[2021-11-12] MEDS: DORZOLAMIDE 2% OPHTH 10 ML 1 DROPS EYE-BOTH (08:29)
[2021-11-12] MEDS: FUROSEMIDE 20 MG TABLET PO (08:29)
[2021-11-12] MEDS: APIXABAN 5 MG TABLET PO (08:29)
[2021-11-12] MEDS: ASPIRIN EC 81 MG TABLET PO (08:29)
[2021-11-12] MEDS: CYANOCOBALAMIN (VITAMIN B-12) 500 MCG TABLET 2500 MCG PO (08:30)
[2021-11-12] MEDS: polyethylene glycoL 3350 17 GM POWD.PACK PO (08:30)
--- NOTE | 2021-11-12 09:45 | PT.IPTN ---
Current Diagnoses Unilateral primary osteoarthritis, left knee (11/11/21) Surgery Performed Operation Date: 11/10/21 10:45 Actual Procedures p Total Knee Arthroplasty(Left) - Linda Molina MD Physical Therapy Treatment Note M2 PT-IP Current Condition Start: 11/10/21 16:20 Freq: NEEDED Status: Active Protocol: Document 11/11/21 10:00 AB (Rec: 11/11/21 12:20 AB [id number]) Physical Therapy Current Condition Current Condition Evaluation Date 11/11/21 Treatment Diagnosis s/p L TKA; difficulty in walking Onset Date 11/10/21 M3 PT-IP Subjective Start: 11/10/21 16:20 Freq: NEEDED Status: Active Protocol: Document 11/12/21 09:45 AB (Rec: 11/12/21 11:15 AB [email or web address]) Subjective Physical Therapy Visit Type Type Treatment Note Visit Start Time 09:45 Visit Stop Time 10:05 Total Visit Minutes 20 Number of SALES DEPARTMENT MANAGER Visits 0 Physical Therapy Visit Comments Patient Comments agreed to do PT Therapy Pain Assessment Pain When Pain Assessed At Rest Pain Present Pain Present Pain Reported Location Left Knee Intensity 3 Scale Used Numeric (0 - 10) M4 PT-IP Mobility and Gait Start: 11/10/21 16:20 Freq: NEEDED Status: Active Protocol: Document 11/12/21 09:45 AB (Rec: 11/12/21 11:15 AB [email or web address]) PT-Transfer Assessment Sit to and From Stand Sit to and from Stand Standby Assistance,1 Person Assistance Equipment Transfer Assistive Device Gait Belt,Front Wheeled Walker Orthotic/Prosthetic Devices or Brace: No Comments Mobility Comments pt seated on chair and completed sit to stand SBA. ambulated ~ 60 ft using FWW SBA to occasional CGA and cues for safety. pt refused to do stair climbing today but did well yesterday with daughter during caregiver training. pt sat back on chair agreed to do LE exercises. completed ankle pumps, heel slides, seated knee flexion stretching with 10 sec hold, LAQs with 5 sec hold. positioned pt on chair. call light and table placed within reach. Gait Assessment Gait Gait Assistance Required: Standby Assistance,Contact Guard Assist Distance (Feet) 60 Able to Maintain Weight Bearing Status Yes During Gait Assistive Devices Assistive Device Gait Belt,Front Wheeled Walker Orthotic/Prosthetic Devices or Brace: No Gait Deviations General Gait Pattern Antalgic,Decreased Stride Length,Decreased Feet Clearance Factors Limiting Gait Function Factors Limiting Gait Function Decreased Activity Tolerance, Decreased Strength,Limited Range of Motion,Pain,Poor Balance,Poor Safety Awareness M5 PT-IP Objective Assessments Start: 11/10/21 16:20 Freq: NEEDED Status: Active Protocol: Document 11/11/21 10:00 AB (Rec: 11/11/21 12:20 AB [id number]) Orientation Orientation/Cognition Level of Alertness Alert Orientation Name,Place,Situation Language Function Ability No Deficits Noted Safety Awareness Decreased Safety Awareness Memory Description No Deficits Noted Gross Range of Motion Lower Extremity ROM Impairments L knee flexion: ~ 50 deg Strength Lower Extremity Strength Assessment Left Impaired Hip 4-/5 Knee 4-/5 Coordination Assessment Gross Coordination Gross Coordination WNL Sensation Assessment Sensation Gross Sensation WNL Muscle Tone Muscle Tone WNL Yes M6 PT-IP Treatment Start: 11/10/21 16:20 Freq: NEEDED Status: Active Protocol: Document 11/12/21 09:45 AB (Rec: 11/12/21 11:15 AB [email or web address]) Physical Therapy Treatment Exercises Exercises Ankle Pumps,Heel Slides,Seated Knee Flexion/Extension Education Education Provided Safety M7 PT-IP Assessment and Plan Start: 11/10/21 16:20 Freq: NEEDED Status: Active Protocol: Document 11/12/21 09:45 AB (Rec: 11/12/21 11:15 AB [email or web address]) PT Summary Assessment and Plan Potential Rehabilitation Potential Good Summary Impairments Pain,ROM,Strength,Balance, Coordination,Sensation,Tone, Cognition,Bed Mobility, Transfers,Gait,Activity Tolerance Progress Towards Goals Slow Progress due to Activity Tolerance Assessment Summary pt requiring SBA to CGA with mobility using FWW. caregiver training completed yesterday and daughter was able to safely assist pt. pt may go home when medically stable. Goals Bed Mobility Goal Independent Transfer Goal Independent,Front Wheeled Walker Gait Goal Independent,Front Wheel Walker Gait Distance 200 Other Goals up/down 1 step using FWW SBA Days to Meet Goals 5 Frequency of Treatment Frequency Of Treatment Twice a Day Treatment Plan Physical Therapy Treatment Plan Bed Mobility Training,Transfer Training,Gait Training, Therapeutic Exercise,Balance Retraining,Post Op Education, Discharge Planning,Hot or Cold Pack,Neuromuscular Re-ed, Coordination Retraining,Manual Therapy Weight Bearing Status Weight Bearing Status Weight Bear as Tolerated Allowed Weight Bearing Amount (enter % LLE WBAT or #) (%) Recommendations To Nursing Amount of Assist Needed 1 Person Assist Discharge Recommendations PT Discharge Recommendations Home with Assistance,Home Health Transportation Needs at Discharge Private Vehicle
== END 2021-11-12 11:42 | disposition home or self-care (01) ==
LOC: OR 23:31 → AC 23:31
PROVIDERS: Admitting Provider Orthopaedic Surgery; PCP Internal Medicine; Referring Provider Orthopaedic Surgery; Visit Provider Orthopaedic Surgery
PROC: 0SRD0JZ Replacement of Left Knee Joint with Synthetic Substitute, Open Approach (ICD-10-PCS; CPT 27447; principal; 2021-11-10 10:45)
DX: M17.12 Unilateral primary osteoarthritis, left knee (principal); I25.10 Atherosclerotic heart disease of native coronary artery without angina pectoris; I10 Essential (primary) hypertension; E78.5 Hyperlipidemia, unspecified; E66.9 Obesity, unspecified; E11.9 Type 2 diabetes mellitus without complications; Z79.01 Long term (current) use of anticoagulants; Z95.1 Presence of aortocoronary bypass graft; Z79.82 Long term (current) use of aspirin; Z68.41 Body mass index [BMI] 40.0-44.9, adult; Z86.718 Personal history of other venous thrombosis and embolism
CPT/HCPCS: 27447; 36415; 73560; 85014; 85018; 97161; 97530; C1776; G0378; C1713; C9290; J0171; J0690; J1100; J2250; J2274; J2405; J2704; J3010

== ENCOUNTER 2022-10-18 12:35 | Emergency (ER) | payer MEDICARE, OTHER, SELFPAY ==
[2021-11-10 14:51] VITALS: BMI 42.5
[2022-10-18] VITALS (8 sets, daily range): BP systolic 134–178; BP diastolic 60–72; PULSE 61–71; RESP 18; TEMP 37.2; O2SAT 97–100; BMI 40.7
--- NOTE | 2022-10-18 12:46 | DI.US.S_ITS ---
PROCEDURE: US PERIP VENOUS LOW EXTREM LT INDICATIONS: SWELLING/PAIN X 2 DAYS TECHNIQUE: Real-time imaging, as well as color and pulse Doppler interrogation, were performed of the lower extremity deep veins from the inguinal ligament to the popliteal fossa. COMPARISON: [facility], [facility] VENOUS LOW EXTREM LT, 03/31/2021, 15:40. FINDINGS: Intraluminal filling defects are noted involving mid to distal left superficial femoral vein with poor compressibility and limited flow. IMPRESSION: Finding is consistent with deep venous thrombosis within mid to distal left superficial femoral vein. Dictated by: Chau Weinstein M.D. on 10/18/2022 at 12:32 Approved by: Chau Weinstein M.D. on 10/18/2022 at 12:36
--- NOTE | 2022-10-18 13:41 | DI.RAD.S_ITS ---
PROCEDURE: XR CHEST 1V INDICATIONS: chest pain TECHNIQUE: One view of the chest was acquired. COMPARISON: [facility], [place], XR CHEST 1V, 11/14/2020, 7:16. FINDINGS: Surgical changes and devices: Numerous surgical clips are again seen. Lungs and pleura: Lungs are clear. No pleural effusions or pneumothorax. Mediastinum: Mediastinal contours appear normal. Heart size is enlarged. Bones and chest wall: No suspicious bony lesions. Overlying soft tissues appear unremarkable. IMPRESSION: Cardiomegaly. No acute pulmonary pathology. Dictated by: Chau Weinstein M.D. on 10/18/2022 at 13:19 Approved by: Chau Weinstein M.D. on 10/18/2022 at 13:19
--- NOTE | 2022-10-18 13:44 | ED_ITS ---
HPI - Extremity Problem <DAKOTA Gonzalez - Last Filed: 10/18/22 14:55> General Chief complaint: Extremity Problem,Nontraumatic Stated complaint: PT Ref/lt leg poss blood clot Time Seen by Provider: 10/18/22 13:26 Source: patient Mode of arrival: Wheelchair History of Present Illness HPI Narrative: This is an 82-year-old female presents to the emergency department concerned about swelling in her left lower extremity that has been getting more painful and uncomfortable over the last 1-2 weeks. She states that she has a history of DVT, was previously on Eliquis but this was discontinued in February of 2022. She has a history of a quadruple cardiac bypass, takes baby aspirin daily. Denies chest pain, shortness of breath at rest but endorses dyspnea with exertion at baseline. States that walking is painful with her left lower extremity swelling. Denies numbness, cold sensation, his denies any numbness in her hands or back pain. Denies any dizziness, weakness, or other concern. Related Data Home Medications Medication Instructions Recorded Confirmed aspirin 81 mg tablet,delayed 81 mg PO QDAY ##0 07/25/16 02/07/22 release atorvastatin 40 mg tablet 80 mg PO HS ##0 07/25/16 02/07/22 metoprolol succinate 50 mg 100 mg PO QPM ##0 09/26/17 02/07/22 tablet,extended release 24 hr (Toprol XL) hydralazine 50 mg tablet 50 mg PO BID 11/08/20 11/10/21 cholecalciferol (vitamin D3) 125 125 mcg PO DAILY 12/08/20 02/07/22 mcg (5,000 unit) tablet (Vitamin D3) coenzyme Q10 100 mg capsule 200 mg PO DAILY 12/08/20 02/07/22 (CoQ-10) cyanocobalamin (vitamin B-12) 2,500 mcg PO DAILY 12/08/20 11/10/21 2,500 mcg tablet dorzolamide-timolol (PF) 2 %-0.5 % 1 drp EYE-BOTH QAM 12/08/20 02/07/22 eye drops in a dropperette levothyroxine 125 mcg capsule 137 mcg PO DAILY 08/10/21 02/07/22 furosemide 20 mg tablet 20 mg PO BID 10/26/21 02/07/22 latanoprost 0.005 % eye drops 1 drp ophthalmic (eye) BEDTIME 10/26/21 02/07/22 Previous Rx's Medication Instructions Recorded Disabled [place] Permit #1 ea 07/05/18 irbesartan 300 mg tablet 300 mg PO DAILY #90 tabs 11/27/18 apixaban 5 mg tablet (Eliquis) 5 mg PO BID #60 tabs 11/11/21 sodium sul 1.479 gram-potas ch See Rx Instructions PO PER PKG DIR 10/11/22 0.188 gram-magnes sul 0.225 gram #24 tabs tablet (Sutab) apixaban 5 mg tablet (Eliquis) 5 mg PO BID #90 tabs 10/18/22 cephalexin 500 mg capsule 500 mg PO QID 7 days #28 caps 10/18/22 Allergies Allergy/AdvReac Type Severity Reaction Status Date / Time peanut [PEANUT] Allergy Severe Rash, Verified 11/10/21 08:40 difficulty breathing Penicillins [PENICILLINS] Allergy Intermediate Rash Verified 11/10/21 08:40 codeine [CODEINE] AdvReac Severe High fever Verified 11/10/21 08:40 Influenza Virus Vaccines AdvReac Severe High Verified 11/10/21 08:40 fevers - patient can't remember the rest Review of Systems <DAKOTA Gonzalez - Last Filed: 10/18/22 14:55> Review of Systems ROS Unobtainable: All systems reviewed & are unremarkable except as noted in HPI and below Patient History <DAKOTA Gonzalez - Last Filed: 10/18/22 14:55> Medical History Arthritis Bilateral lower extremity edema Borderline diabetes Chronic back pain Coronary artery disease (1998) Hearing impaired History of arm fracture Hx of diastolic dysfunction Hypertension Hypothyroidism (Unknown) Intermittent chest pain Irritable bowel disease Left leg DVT (11/14/20) Mumps Osteoarthritis Osteoporosis Pneumonia Right arm fracture Right-sided chest pain Surgical History History of knee replacement (2013) Hx of blepharoplasty Hx of breast biopsy (2006) Hx of cataract surgery (2013) Hx of cholecystectomy (11/2016) Hx of coronary artery bypass graft (1998) Hx of dilation and curettage Hx of hysterectomy (1996) Hx of rotator cuff surgery Hx of tubal ligation Family History Child Heart disease Mother Diabetes mellitus Father Heart disease Social History household members: children Smoking Status: Never smoker second hand exposure: No alcohol intake: never substance use type: does not use Smoking Status: Never smoker alcohol intake frequency: holidays/special occasions only Substance Use Type: does not use Exam <DAKOTA Gonzalez - Last Filed: 10/18/22 14:55> Narrative Exam Narrative: Reviewed vitals signs and nursing notes. General: Pleasant, sitting upright, in no acute distress, well groomed, afebrile HEENT: symmetrical facial expressions, moist mucous membranes, neck is supple CV: regular rate and rhythm, warm extremities, edema to the left lower extremity, 2+, no erythema, DP and PT pulses are 2+, brisk cap refill Respiratory: normal work of breathing, without tachypnea or hypoxia. GI: abdomen soft, nondistended, without CVA tenderness bilaterally. MSK: moves all extremities, no weakness, normal tone, ambulatory without deficit Skin: brisk capillary refill, without rash or wound Neuro: clear speech and normal cognition, A&O x3, GCS 15, no focal motor or sensation deficits Initial Vital Signs Initial Vital Signs: Vital Signs Temperature 98.9 F 10/18/22 12:39 Pulse Rate 71 10/18/22 12:39 Respiratory Rate 18 10/18/22 12:39 Blood Pressure 148/67 H 10/18/22 12:39 Pulse Oximetry 97 10/18/22 12:39 Oxygen Delivery Method Room Air 10/18/22 12:39 <Kvng Price DO - Last Filed: 10/18/22 16:30> Initial Vital Signs Initial Vital Signs: Vital Signs Temperature 98.9 F 10/18/22 12:39 Pulse Rate 71 10/18/22 12:39 Respiratory Rate 18 10/18/22 12:39 Blood Pressure 148/67 H 10/18/22 12:39 Pulse Oximetry 97 10/18/22 12:39 Oxygen Delivery Method Room Air 10/18/22 12:39 Scores <DAKOTA Gonzalez - Last Filed: 10/18/22 14:55> Vamsi Criteria for DVT Active Cancer (Treatment within 6 months): No Bedridden recently >3 days or major surgery within 4 weeks: No Calf Swelling >3cm compared to other leg: No Collateral (nonvericose) superficial veins present: No Entire leg swollen: Yes Localized tenderness along the deep vein system: Yes Pitting edema, confined to symtomatic leg: Yes Paralysis, paresis, or recent plaster immobilization of ext: No Previously documented DVT: Yes Alternative dx to DVT as likely or more likely: No Vamsi criteria for DVT: 4 <Kvng Price DO - Last Filed: 10/18/22 16:30> Vamsi Criteria for DVT Brain' criteria for DVT: 4 Course <DAKOTA Gonzalez - Last Filed: 10/18/22 14:55> Orders Ordered: ED Orders 10/18/22 12:46 US periph venous low extrem lt Stat 10/18/22 13:26 BNP [NT-proBNP (BNP-Adult 18+)] Stat Basic Metabolic Panel Stat Complete Blood Count AUTO DIFF Stat PT [Prothrombin Time INR] Stat Troponin & CK Cardiac Panel Stat 10/18/22 13:41 Chest [XR chest 1V] Stat 10/18/22 14:02 EKG-12 Lead Stat 10/18/22 15:15 Urine Culture Stat Urine Microscopic Stat Discontinued Medications Apixaban (Apixaban 5 Mg Tablet) 10 mg PO NOW ONE Stop: 10/18/22 13:41 Last Admin: 10/18/22 14:05 Dose: 10 mg Documented By: LONI Cephalexin HCl (Cephalexin 250 Mg Capsule) 500 mg PO NOW ONE Stop: 10/18/22 15:18 Last Admin: 10/18/22 15:26 Dose: 500 mg Documented By: RO Vital Signs Vital signs: Vital Signs - 8 hr 10/18/22 12:39 10/18/22 13:20 10/18/22 13:21 Temperature 98.9 F Pulse Rate 71 68 Respiratory Rate 18 Blood Pressure 148/67 H 134/60 Pulse Oximetry 97 98 Oxygen Delivery Method Room Air 10/18/22 13:21 10/18/22 13:30 10/18/22 13:30 Temperature Pulse Rate 69 64 Respiratory Rate Blood Pressure 143/65 H Pulse Oximetry 99 100 Oxygen Delivery Method Room Air 10/18/22 14:00 10/18/22 14:01 10/18/22 14:01 Temperature Pulse Rate 62 62 Respiratory Rate Blood Pressure 178/72 H Pulse Oximetry 99 99 Oxygen Delivery Method 10/18/22 14:30 10/18/22 14:31 10/18/22 14:31 Temperature Pulse Rate 61 61 Respiratory Rate Blood Pressure 170/70 H Pulse Oximetry 99 100 Oxygen Delivery Method <Kvng Price, DO - Last Filed: 10/18/22 16:30> Orders Ordered: ED Orders 10/18/22 12:46 US periph venous low extrem lt Stat 10/18/22 13:26 BNP [NT-proBNP (BNP-Adult 18+)] Stat Basic Metabolic Panel Stat Complete Blood Count AUTO DIFF Stat PT [Prothrombin Time INR] Stat Troponin & CK Cardiac Panel Stat 10/18/22 13:41 Chest [XR chest 1V] Stat 10/18/22 14:02 EKG-12 Lead Stat 10/18/22 15:15 Urine Culture Stat Urine Microscopic Stat Discontinued Medications Apixaban (Apixaban 5 Mg Tablet) 10 mg PO NOW ONE Stop: 10/18/22 13:41 Last Admin: 10/18/22 14:05 Dose: 10 mg Documented By: LONI Cephalexin HCl (Cephalexin 250 Mg Capsule) 500 mg PO NOW ONE Stop: 10/18/22 15:18 Last Admin: 10/18/22 15:26 Dose: 500 mg Documented By: LONI Vital Signs Vital signs: Vital Signs - 8 hr 10/18/22 12:39 10/18/22 13:20 10/18/22 13:21 Temperature 98.9 F Pulse Rate 71 68 Respiratory Rate 18 Blood Pressure 148/67 H 134/60 Pulse Oximetry 97 98 Oxygen Delivery Method Room Air 10/18/22 13:21 10/18/22 13:30 10/18/22 13:30 Temperature Pulse Rate 69 64 Respiratory Rate Blood Pressure 143/65 H Pulse Oximetry 99 100 Oxygen Delivery Method Room Air 10/18/22 14:00 10/18/22 14:01 10/18/22 14:01 Temperature Pulse Rate 62 62 Respiratory Rate Blood Pressure 178/72 H Pulse Oximetry 99 99 Oxygen Delivery Method 10/18/22 14:30 10/18/22 14:31 10/18/22 14:31 Temperature Pulse Rate 61 61 Respiratory Rate Blood Pressure 170/70 H Pulse Oximetry 99 100 Oxygen Delivery Method MDM - Extremity (Nontraumatic) <ANA GonzalezP - Last Filed: 10/18/22 14:55> Lab Data 10/18/22 13:26 10/18/22 13:26 Labs: Lab Results 10/18/22 10/18/22 10/18/22 Range/Units 13:26 13:26 13:26 WBC 6.5 (4.5-11.0) X10^3/uL RBC 4.20 (4.0-5.2) X10^6/uL Hgb 11.4 L (12.0-16.0) g/dL Hct 34.4 L (36-46) % MCV 81.9 (80-100) fL MCH 27.2 (26-34) PG MCHC 33.3 (30-36) % RDW 16.0 H (11.6-14.8) % Plt Count 213 (150-400) X10^3/uL Neut % (Auto) 72.6 (50-75) % Lymph % (Auto) 13.2 L (25-40) % [place] % (Auto) 8.9 (3-14) % Eos % (Auto) 4.5 H (2-4) % Baso % (Auto) 0.8 (0-2) % Neut # (Auto) 4700 (4821-0502) /uL Lymph # (Auto) 900 L (1425-3669) /uL [place] # (Auto) 600 (0-900) /uL Eos # (Auto) 300 (0-450) /uL Baso # (Auto) 100 (0-100) /uL PT 11.9 (10.1-12.7) SECONDS INR 1.0 (0.9-1.3) Sodium 139 (137-145) mmol/L Potassium 3.8 (3.4-5.1) mmol/L Chloride 103 (98-107) mmol/L Carbon Dioxide 29 (22-32) mmol/L BUN 16 (7-17) mg/dL Creatinine 1.11 H (0.52-1.04) mg/dL Estimated GFR 50 L (>60) mL/min BUN/Creatinine Ratio 14.4 (6-22) Glucose 104 (80-110) mg/dL Calcium 9.3 (8.4-10.2) mg/dL Total Creatine Kinase (30-135) U/L CK-MB (CK-2) CK-MB (CK-2) Rel Index Troponin I (0.01-0.034) ng/mL NT-Pro-B Natriuret Pep (<450) pg/mL Urine RBC (0-5/HPF) Urine WBC (0-5/HPF) Ur Squamous Epith Cells (0-5/HPF) Urine Bacteria (None) Ur Culture Indicated? 10/18/22 10/18/22 Range/Units 13:26 15:15 WBC (4.5-11.0) X10^3/uL RBC (4.0-5.2) X10^6/uL Hgb (12.0-16.0) g/dL Hct (36-46) % MCV (80-100) fL MCH (26-34) PG MCHC (30-36) % RDW (11.6-14.8) % Plt Count (150-400) X10^3/uL Neut % (Auto) (50-75) % Lymph % (Auto) (25-40) % [place] % (Auto) (3-14) % Eos % (Auto) (2-4) % Baso % (Auto) (0-2) % Neut # (Auto) (5324-3998) /uL Lymph # (Auto) (8027-9001) /uL [place] # (Auto) (0-900) /uL Eos # (Auto) (0-450) /uL Baso # (Auto) (0-100) /uL PT (10.1-12.7) SECONDS INR (0.9-1.3) Sodium (137-145) mmol/L Potassium (3.4-5.1) mmol/L Chloride (98-107) mmol/L Carbon Dioxide (22-32) mmol/L BUN (7-17) mg/dL Creatinine (0.52-1.04) mg/dL Estimated GFR (>60) mL/min BUN/Creatinine Ratio (6-22) Glucose (80-110) mg/dL Calcium (8.4-10.2) mg/dL Total Creatine Kinase 43 (30-135) U/L CK-MB (CK-2) TNP CK-MB (CK-2) Rel Index TNP Troponin I < 0.012 (0.01-0.034) ng/mL NT-Pro-B Natriuret Pep 499 H (<450) pg/mL Urine RBC None seen (0-5/HPF) Urine WBC 5-10/hpf H (0-5/HPF) Ur Squamous Epith Cells 0-1 /hpf (0-5/HPF) Urine Bacteria Few (2-10) H (None) Ur Culture Indicated? Specimen cultured Urine Dip Bedside Urine Glucose Negative Bedside Urine Bilirubin - Negative Bedside Urine Ketone - Negative Urine Specific [place] 1.010 Bedside Urine Occult Blood - Negative Bedside Urine pH 6.0 Bedside Urine Protein - Negative Bedside Urine Urobilinogen - Negative Bedside Urine Nitrite - Negative Bedside Urine Leukocytes ++ 125 Esterase Imaging Data US - DVT: Radiologist's Impression: PROCEDURE:? US PERIP VENOUS LOW EXTREM LT ? INDICATIONS:? SWELLING/PAIN X 2 DAYS ? TECHNIQUE:? Real-time imaging, as well as color and pulse Doppler interrogation, were performed of the lower extremity deep veins from the inguinal ligament to the popliteal fossa.? ? COMPARISON:? [facility], , PERIP VENOUS LOW EXTREM LT, 03/31/2021, 15:40. ? FINDINGS:? Intraluminal filling defects are noted involving mid to distal left superficial femoral vein with poor compressibility and limited flow. ? IMPRESSION:? Finding is consistent with deep venous thrombosis within mid to d istal left superficial femoral vein.? ? ? Dictated by: Chau Weinstein M.D. on 10/18/2022 at 12:32 ? ? Approved by: Chau Weinstein M.D. on 10/18/2022 at 12:36 ? ECG Data Interpretation: EKG independently reviewed by myself at 1405 reveals normal sinus rhythm at 62 bpm with regular axis and intervals. No STEMI, ST segment changes, arrhythmia, or acute ischemic changes. MDM Narrative Medical decision making narrative: Chief Complaint: left leg swelling Independent historian: patient Multiple etiologies for patient's symptoms considered including, but not limited to: DVT, muscle strain/sprain, lymphedema, venous insufficiency, popliteal cyst, cellulitis, knee abnormalities/effusion, heart failure edema I have independently reviewed the patient's vital signs and nursing notes as well as prior records if available. My EKG interpretation: Normal sinus rhythm without ST ischemia My interpretation of lab studies: Consistent with prior lab work, renal fu nction has improved from prior lab work, negative troponin elevation, BNP is 499 this is decreased from previous in the pus, no pleural effusions on chest x-ray My interpretation of imaging: Chest x-ray shows cardiomegaly without acute cardiopulmonary abnormality otherwise. ultrasound venous Doppler shows a DVT in the DVT within the mid to distal left superficial femoral vein Consultations: Refer patient to Giovana Cordero for follow-up as she is previous patient of Dr. Scott Course of care: Patient has history of DVT in the past, is not anticoagulated but taking baby aspirin currently. Today she was started on Eliquis, 10 mg b.i.d. x7 days and then 5 mg b.i.d. thereafter. She was given a coupon pack and a 90 tab prescription was sent to her pharmacy. She will follow-up with Dr. Juan Ramon mendez and discussed methods of improving her lower extremity edema to include compression stocking, warm compresses over the area of pain. Social considerations that may affect disposition: none Questions are addressed and there is agreement with the plan and for follow-up. I consulted with the ED attending physician Dr. Price as needed for higher level of care considerations and they were available for discussion and recommendations regarding plan of care and diagnostic testing. Patient is appropriate for outpatient management. <Kvng Price, DO - Last Filed: 10/18/22 16:30> Lab Data Labs: Lab Results 10/18/22 10/18/22 10/18/22 Range/Units 13:26 13:26 13:26 WBC 6.5 (4.5-11.0) X10^3/uL RBC 4.20 (4.0-5.2) X10^6/uL Hgb 11.4 L (12.0-16.0) g/dL Hct 34.4 L (36-46) % MCV 81.9 (80-100) fL MCH 27.2 (26-34) PG MCHC 33.3 (30-36) % RDW 16.0 H (11.6-14.8) % Plt Count 213 (150-400) X10^3/uL Neut % (Auto) 72.6 (50-75) % Lymph % (Auto) 13.2 L (25-40) % [place] % (Auto) 8.9 (3-14) % Eos % (Auto) 4.5 H (2-4) % Baso % (Auto) 0.8 (0-2) % Neut # (Auto) 4700 (0064-9217) /uL Lymph # (Auto) 900 L (3393-3176) /uL [place] # (Auto) 600 (0-900) /uL Eos # (Auto) 300 (0-450) /uL Baso # (Auto) 100 (0-100) /uL PT 11.9 (10.1-12.7) SECONDS INR 1.0 (0.9-1.3) Sodium 139 (137-145) mmol/L Potassium 3.8 (3.4-5.1) mmol/L Chloride 103 (98-107) mmol/L Carbon Dioxide 29 (22-32) mmol/L BUN 16 (7-17) mg/dL Creatinine 1.11 H (0.52-1.04) mg/dL Estimated GFR 50 L (>60) mL/min BUN/Creatinine Ratio 14.4 (6-22) Glucose 104 (80-110) mg/dL Calcium 9.3 (8.4-10.2) mg/dL Total Creatine Kinase (30-135) U/L CK-MB (CK-2) CK-MB (CK-2) Rel Index Troponin I (0.01-0.034) ng/mL NT-Pro-B Natriuret Pep (<450) pg/mL Urine RBC (0-5/HPF) Urine WBC (0-5/HPF) Ur Squamous Epith Cells (0-5/HPF) Urine Bacteria (None) Ur Culture Indicated? 10/18/22 10/18/22 Range/Units 13:26 15:15 WBC (4.5-11.0) X10^3/uL RBC (4.0-5.2) X10^6/uL Hgb (12.0-16.0) g/dL Hct (36-46) % MCV (80-100) fL MCH (26-34) PG MCHC (30-36) % RDW (11.6-14.8) % Plt Count (150-400) X10^3/uL Neut % (Auto) (50-75) % Lymph % (Auto) (25-40) % [place] % (Auto) (3-14) % Eos % (Auto) (2-4) % Baso % (Auto) (0-2) % Neut # (Auto) (5910-3390) /uL Lymph # (Auto) (0623-0461) /uL [place] # (Auto) (0-900) /uL Eos # (Auto) (0-450) /uL Baso # (Auto) (0-100) /uL PT (10.1-12.7) SECONDS INR (0.9-1.3) Sodium (137-145) mmol/L Potassium (3.4-5.1) mmol/L Chloride (98-107) mmol/L Carbon Dioxide (22-32) mmol/L BUN (7-17) mg/dL Creatinine (0.52-1.04) mg/dL Estimated GFR (>60) mL/min BUN/Creatinine Ratio (6-22) Glucose (80-110) mg/dL Calcium (8.4-10.2) mg/dL Total Creatine Kinase 43 (30-135) U/L CK-MB (CK-2) TNP CK-MB (CK-2) Rel Index TNP Troponin I < 0.012 (0.01-0.034) ng/mL NT-Pro-B Natriuret Pep 499 H (<450) pg/mL Urine RBC None seen (0-5/HPF) Urine WBC 5-10/hpf H (0-5/HPF) Ur Squamous Epith Cells 0-1 /hpf (0-5/HPF) Urine Bacteria Few (2-10) H (None) Ur Culture Indicated? Specimen cultured Urine Dip Bedside Urine Glucose Negative Bedside Urine Bilirubin - Negative Bedside Urine Ketone - Negative Urine Specific [place] 1.010 Bedside Urine Occult Blood - Negative Bedside Urine pH 6.0 Bedside Urine Protein - Negative Bedside Urine Urobilinogen - Negative Bedside Urine Nitrite - Negative Bedside Urine Leukocytes ++ 125 Esterase Discharge Plan Departure Patient Disposition: Home Clinical Impression: Acute UTI Dvt femoral (deep venous thrombosis) Qualifiers: Chronicity: acute Laterality: left Qualified Code(s): I82.412 - Acute embolism and thrombosis of left femoral vein Instructions: Urinary Tract Infection, Deep Vein Thrombosis Activity Restrictions/Additional Instructions: *You have been diagnosed with DVT in left superficial femoral vein. It may be helpful to do warm compresses over your mid to lower thigh, use compressive stockings or Tadeo bandage for your lower leg to help prevent pooling of fluid. This will take weeks to resolve but should start to get a little better over the next week. Please elevate your leg as much as possible. Use Tylenol as needed for pain, avoid massage and aggressive PT. You are now anticoagulated so this is a bleeding risk if you were to have a fall or injury. Please follow-up with Dr. Cordero I have sent her a copy of your note. Everything on your lab work and your cardiac tests appear to be normal for you, no concerning evidence of a heart or lung problem. If you develop chest pain, new shortness of breath, please come back to the emergency department. I am sorry for the news, I hope this gets better soon. Your urine came back positive infection, please take this antibiotic 4 times a day for the next 7 days. *What to do: I have sent 90 tabs of Eliquis to [facility]. Please take 10 mg twice daily for 7 days followed by 5 mg twice daily thereafter. *Please continue to take your regular medications as directed. [x ] New medication prescriptions sent to your pharmacy: [[facility] ] [ ] New medication written as a paper prescription [ ] No new medications given *Please call and schedule follow up with your primary care provider in 2-3 days, at least for an update. Let them know you were seen in the Emergency Department for the above problem. We will electronically transmit a record of today's note if your PCP or specialist is in our system. *If you do not have a primary care provider please contact [phone] to establish care with one of the [facility] primary care providers. *Return to the Emergency Department for worsening symptoms, inability to keep liquids down, fever greater than 101F, chills, or other concerning symptom. Prescriptions: New Eliquis 5 mg tablet 5 mg PO BID Qty: 90 0RF Rx Instructions: Please take 10 mg twice a day for 7 days followed by 5 mg twice daily thereafter. cephalexin 500 mg capsule 500 mg PO QID 7 Days Qty: 28 0RF No Action (DME) Disabled [place] Permit Qty: 1 0RF Dose Instruction: As directed Rx Instructions: As directed atorvastatin 40 MG tablet 80 mg PO HS Qty: 0 aspirin 81 MG tablet,delayed release (DR/EC) 81 mg PO QDAY Qty: 0 metoprolol succinate [Toprol XL] 50 MG tablet extended release 24 hr 100 mg PO QPM Qty: 0 irbesartan 300 mg tablet 300 mg PO DAILY Qty: 90 0RF Patient Comments: Takes at bedtime Sutab 1.479-0.188- 0.225 gram tablet See Rx Instructions PO PER PKG DIR Qty: 24 0RF Rx Instructions: Take as directed by Physician hydralazine 50 mg Tablet 50 mg PO BID coenzyme Q10 [CoQ-10] 100 mg Capsule 200 mg PO DAILY cholecalciferol (vitamin D3) [Vitamin D3] 125 mcg (5,000 unit) Tablet 125 mcg PO DAILY dorzolamide-timolol (PF) 2-0.5 % [place] 1 drp EYE-BOTH QAM cyanocobalamin (vitamin B-12) 2,500 mcg Tablet 2,500 mcg PO DAILY levothyroxine 125 mcg capsule 137 mcg PO DAILY Rx Instructions: Take 1 tablet by mouth each morning on an empty stomach 30 minutes prior to breakfast latanoprost 0.005 % Drops 1 drp OPHTHALMIC (EYE) BEDTIME furosemide 20 mg Tablet 20 mg PO BID Eliquis 5 mg Tablet 5 mg PO BID Qty: 60 0RF Rx Instructions: Prevent blood clots Referrals: Eduardo Boateng MD [Primary Care Provider] - Giovana Cordero PA-C [Physician Oil Pit Attendant] - Stand Alone Forms: Patient Portal/API <Kvng Price, DO - Last Filed: 10/18/22 16:30> [facility] Dr Price Co-Sign Statement: I was available for consultation during this patient's emergency department visit. This chart is signed by myself for administrative purposes only. I did not have direct contact with this patient during this visit. They were seen independently by the APC.
[2022-10-18 13:47] LABS: Add Manual Diff / Slide Review NO; Basophils Absolute Auto 100 /uL (0-100); Basophils Percent Auto 0.8 % (0-2); Eosinophils Absolute Auto 300 /uL (0-450); Eosinophils Percent Auto 4.5 % (2-4); Hematocrit 34.4 % (36-46); Hemoglobin 11.4 g/dL (12.0-16.0); Lymphocytes Absolute Auto 900 /uL (1100-4500); Lymphocytes Percent Auto 13.2 % (25-40); Mean Corpuscular HGB Conc 33.3 % (30-36); Mean Corpuscular Hemoglobin 27.2 PG (26-34); Mean Corpuscular Volume 81.9 fL (80-100); Monocytes Absolute Auto 600 /uL (0-900); Monocytes Percent Auto 8.9 % (3-14); Neutrophils Absolute Auto 4700 /uL (1500-7000); Neutrophils Percent Auto 72.6 % (50-75); Platelet Count 213 X10^3/uL (150-400); White Blood Cell Count 6.5 X10^3/uL (4.5-11.0)
[2022-10-18 13:55] LABS: Prothrombin Time 11.9 SECONDS (10.1-12.7)
[2022-10-18 14:03] LABS: Creatine Kinase 43 U/L (30-135)
[2022-10-18 14:05] LABS: BUN Creatinine Ratio 14.4 (6-22); Blood Urea Nitrogen 16 mg/dL (7-17); Calcium 9.3 mg/dL (8.4-10.2); Carbon Dioxide 29 mmol/L (22-32); Chloride 103 mmol/L (98-107); Estimated Glomerular Filt Rate 50 mL/min (>60); Glucose 104 mg/dL (80-110); HEMOLYSIS < 15 (0-50); Potassium 3.8 mmol/L (3.4-5.1); Sodium 139 mmol/L (137-145)
[2022-10-18] MEDS: APIXABAN 5 MG TABLET 10 MG PO (14:05)
[2022-10-18 14:16] LABS: NT-proBNP (BNP-Adult 18+) 499 pg/mL (<450); Troponin I < 0.012 ng/mL (0.01-0.034)
[2022-10-18] MEDS: cephALEXin 250 MG CAPSULE 500 MG PO (15:26)
[2022-10-18 16:22] LABS: Bacteria Urine Few (2-10); RBC Urine None Seen (0-5/HPF); Squamous Epithelial Cell Urine 0-1 /HPF (0-5/HPF)
[2022-10-18 16:25] LABS: Culture Indicated Urine Specimen Cultured; WBC Urine 5-10/HPF (0-5/HPF)
== END 2022-10-18 15:40 | disposition home or self-care (01) ==
PROVIDERS: Emergency Medicine; Emergency Provider Nurse Practitioner Critical Care Medicine; PCP Internal Medicine
DX: N39.0 Urinary tract infection, site not specified (principal); I82.412 Acute embolism and thrombosis of left femoral vein; R07.9 Chest pain, unspecified; Z79.01 Long term (current) use of anticoagulants; Z79.899 Other long term (current) drug therapy
CPT/HCPCS: 71045; 80048; 81003; 81015; 82550; 83880; 84484; 85025; 85610; 87086; 93005; 93971; 99283; 99284